=== PATIENT | female | born 1965 | race Caucasian/White ===

== ENCOUNTER 2016-12-04 19:20 | Emergency (ER) | payer OTHER ==
--- NOTE | 2016-12-04 21:02 | DIAGNOSTIC IMAGING REPORT ---
PROCEDURE: CT SINUS/FACIAL BONES W/O CONT CLINICAL INDICATION: SUSPECTED TRAUMA TECHNIQUE: Noncontrast axial CT images through the facial bones. Coronal and sagittal reformations were created. COMPARISON: None. FINDINGS: Very minor subcutaneous stranding in the region of the right cheek. No underlying fracture. The mandible is intact. Temporomandibular joints are normally located. Moderately severe flattening of the mandibular condyles with mild joint space loss of the temporomandibular joints. Small mucous retention cyst at the base of the right maxillary sinus. Maxillary sinuses are intact with normal aeration. Pterygoid plates, sphenoid, temporal bones, zygomatic arches, bony orbits, nasal bones and osseous nasal septum are intact. Frontal bones and frontal sinuses are intact. Mastoid cavities, middle ear cavities, and sphenoid sinuses are normally aerated. Globes and orbital soft tissues are normal. The visible base of the brain is normal. The airway is patent. The visible glandular structures of the neck are normal. The visible portions of the cervical spine are intact. Mild degeneration at the atlantodental interval. IMPRESSION: 1. No fractures. 2. Mild soft tissue contusion over the right cheek. 3. Moderate degenerative change in the temporomandibular joints. 4. Findings called to the emergency room. All CT scans at this facility use dose modulation, iterative reconstruction, and/or weight-based dosing when appropriate to reduce radiation dose to as low as reasonably achievable.
--- NOTE | 2016-12-04 21:07 | DIAGNOSTIC IMAGING REPORT ---
PROCEDURE: CT CERVICAL SPINE W/O CONTRAST INDICATION: POSSIBLE TRAUMA TECHNIQUE: Axial CT images were obtained through the cervical spine. Coronal and sagittal reformations were created. No comparison. COMPARISON: None. FINDINGS: The craniocervical junction is intact. The cervical vertebral bodies are normal in height without evidence of fracture. Kyphosis and rightward tilt of the cervical spine without acute subluxation. The disk spacing is normal. The central canal is patent. No spinal stenosis or neural foraminal narrowing. Mild degenerative spurring and joint space loss at the atlantodental interval. No prevertebral or paravertebral soft-tissue swelling or mass. Patent airway and normal lung apices. IMPRESSION: 1. Intact cervical spine. 2. Kyphosis and rightward tilt are likely postural. 3. Minor atlantodental interval degeneration. 4. Findings called to the emergency room. All CT scans at this facility use dose modulation, iterative reconstruction, and/or weight-based dosing when appropriate to reduce radiation dose to as low as reasonably achievable.
--- NOTE | 2016-12-04 21:15 | DIAGNOSTIC IMAGING REPORT ---
PROCEDURE: ABDOMEN/PELVIS WITH CONTRAST CLINICAL INDICATION: TRAUMA POSSIBLE TECHNIQUE: 125 ml of Isovue 300 were injected intravenously and axial images were obtained of the abdomen and pelvis with sagittal and coronal reformations. COMPARISON: None. FINDINGS: ABDOMEN: Minor bibasilar atelectasis. Normal sized heart. No hiatal hernia. The liver, gallbladder, adrenal glands, kidneys, pancreas and spleen are normal. The abdominal aorta is normal in its course and caliber. There are no suspicious calcifications, retroperitoneal adenopathy or masses. The stomach, upper bowel loops, and mesentery are normal. Intact anterior abdominal wall. No free fluid or inflammation. PELVIS: The urinary bladder is quite distended. No evidence of intra or extraperitoneal bladder rupture. The appendix and pelvic small bowel loops are normal. Mild sigmoid diverticulosis. Normal amount of stool in the colon and rectum. The uterus, ovaries, and pelvic vessels are normal. No adenopathy, free fluid, or pelvic mass. Intact osseous structures. IMPRESSION: 1. No CT evidence of intra-abdominal or pelvic trauma. 2. Distended urinary bladder. 3. Findings called to the emergency room. All CT scans at this facility use dose modulation, iterative reconstruction, and/or weight-based dosing when appropriate to reduce radiation dose to as low as reasonably achievable.
--- NOTE | 2016-12-04 21:17 | DIAGNOSTIC IMAGING REPORT ---
PROCEDURE: XR CHEST 1 VIEW INDICATION: POSSIBLE TRAUMA TECHNIQUE: Single view chest. 1938 hours COMPARISON: None FINDINGS: Normal cardiomediastinal contour and central vessels. Mild hazy right infrahilar opacity. Moderately low lung volumes. No pneumothorax or effusion. The visible osseous structures are intact. IMPRESSION: 1. Hazy right infrahilar alveolar opacity in addition to low lung volumes is likely atelectatic change. Consider repeat film on the patient is able. Aspiration pneumonitis cannot be entirely excluded. 2. No radiographic evidence of other chest trauma.
--- NOTE | 2016-12-04 22:05 | DIAGNOSTIC IMAGING REPORT ---
PROCEDURE: CT HEAD WITHOUT CONTRAST INDICATION: POSSIBLE INJURY, found down TECHNIQUE: Axial CT images were acquired through the head. Coronal and sagittal reformations were created. COMPARISON: None. FINDINGS: No intracranial hemorrhage or extraaxial fluid collections. Ventricles are normal in size, shape and position. There is no mass, mass effect or midline shift. The pratt-white matter differentiation is normal. There is no edema. The calvarium is intact. Small mucous retention cyst at the base of the right maxillary sinus. The paranasal sinuses and mastoid air cells are otherwise normally aerated. Mild soft tissue swelling over the right cheek. Extracranial soft tissues are otherwise normal. IMPRESSION: 1. No CT evidence of acute intracranial process. 2. Findings discussed with Dr. Magana at [address] scans at this facility use dose modulation, iterative reconstruction, and/or weight-based dosing when appropriate to reduce radiation dose to as low as reasonably achievable.
--- NOTE | 2016-12-04 22:32 | ED CLINICAL REPORT ---
Clinical Report - Physicians/Mid Levels [facility] [address] [place] [address] 12/04/2016 19:21 Patient: ROSALVA MARINO Arrived- By ambulance. Historian- patient and EMS personnel. HISTORY OF PRESENT ILLNESS Chief Complaint: DECREASED MENTAL STATUS. The patient is described as having decreased responsiveness. This started today and is still present. The patient was found unresponsive and has had alcohol consumption recently. The patient has had difficulty walking. Usually is alert and oriented X3 and usually has normal mobility. Similar symptoms previously: Many times. Recent medical care: Not recently seen/assessed. REVIEW OF SYSTEMS No headache, chest pain, difficulty breathing, abdominal pain or nausea. No diarrhea or vomiting. All systems otherwise negative, except as recorded above. PAST HISTORY ( Depression. Anxiety Reaction. Alcoholism.). Additional Surgeries: no known surgeries. Medications: ALPRAZolam Oral. None. Allergies: No Known Drug Allergy. SOCIAL HISTORY Smoker - current status unknown. Alcohol use. Patient is a longstanding alcoholic. No drug use. ADDITIONAL NOTES The nursing notes have been reviewed with agreement regarding the chief complaint, PMH and patient medications and allergies. PHYSICAL EXAM Vital Signs: 12/04/2016 19:22 BP: 174/101. HR: 97. RR: 15. O2 saturation: 96%. Ramirez-Butler pain scale: 0/10. Have been reviewed. Hypertensive. Heart rate normal. Respiratory rate normal. Oxygen saturation normal. Appearance: Alert. No acute distress. ENT: Dry mucous membranes present. Neck: Normal inspection. CVS: Normal heart rate and rhythm. Heart sounds normal. Respiratory: No respiratory distress. Breath sounds normal. Abdomen: Soft and nontender. No organomegaly. Back: Normal inspection. No CVA tenderness. Skin: Normal skin color. No rash. Extremities: No lower extremity edema. Neuro: Mildly altered mental status. (Intoxicated). Speech normal. LABS, X-RAYS, AND EKG Laboratory Tests: UA-Culture if indicated: (NARCISA: 12/04/2016 21:05) ( MsgRcvd 12/04/2016 21:34) Final results Test Result Flag Units (Reference) URINE COLOR YELLOW URINE APPEARANCE CLEAR URINE GLUCOSE NEGATIVE (NEGATIVE) URINE BILIRUBIN NEGATIVE (NEGATIVE) URINE KETONE NEGATIVE (NEGATIVE) URINE SPECIFIC GRAVITY <= 1.005 L (1.010-1.030) URINE PH 5.5 (5.0-8.0) URINE PROTEIN NEGATIVE (NEGATIVE) URINE UROBILINOGEN 0.2 EU/dL (0.2-1.0) URINE NITRITE NEGATIVE (NEGATIVE) URINE BLOOD NEGATIVE (NEGATIVE) URINE LEUK ESTERASE NEGATIVE (NEGATIVE) URINE RBC NONE SEEN rbc/hpf (0-1) URINE WBC 1-3 wbc/hpf (0-1) URINE EPITHELIAL CELLS 1-3 EPI/hpf (0-5) URINE BACTERIA NONE SEEN (NONE SEEN) URINE COMMENT CULT NOT INDICATED URINE CULTURES ARE SET-UP BASED ON THE FOLLOWING CRITERIA:POSITIVE NITRITEPOSITIVE LEUKOCYTE ESTERASEGREATER THAN 10 WHITE BLOOD CELLSMODERATE (2+) OR GREATER BACTERIA CBC w Diff: (NARCISA: 12/04/2016 19:43) ( [facility] 12/04/2016 20:06) Final results Test Result Flag Units (Reference) WHITE BLOOD COUNT 5.7 K/uL (4.5-11.5) RED BLOOD COUNT 4.44 M/uL (4.00-5.20) HEMOGLOBIN 14.5 gm/dL (12.0-16.0) HEMATOCRIT 43.0 % (36.0-46.0) MEAN CELL VOLUME 97 fL (80-100) MEAN CORPUSCULAR HGB 33 pg (26-34) MEAN CORPUSCULAR HGB CONC 34 g/dL (31-37) RED CELL DISTRIBUTION WIDTH 14.9 H % (11.6-14.8) PLATELET COUNT 300 K/uL (150-400) NEUTROPHIL % 50.2 % (50-75) LYMPH % 42.5 H % (25-40) MONO % 4.6 % (3-14) EOSINOPHIL % 1.5 % (0-4) BASOPHIL % 1.2 % (0-2) PT with INR: (NARCISA: 12/04/2016 19:43) ( [facility]30) Final results Test Result Flag Units (Reference) INR 1.0 (0.8-1.2) Low Intensity Therapy: INR 1.5-2.0 PT range 18.5-23.1Mod.Intensity Therapy: INR 2.0-3.0 PT range 23.1-31.5High Intensity Therapy: INR 2.5-3.5 PT range 27.4-35.5High Intensity Therapy 2: INR 3.0-4.0 PT range 31.5-39.3 APTT 29 SECONDS (24-34) Lactate, Serum: (NARCISA: 12/04/2016 21:45) ( [facility] 12/04/2016 22:13) Final results Test Result Flag Units (Reference) LACTIC ACID 3.8 H mmol/L (0.4-2.0) Urine Drug Screen: (NARCISA: 12/04/2016 21:05) ( [facility] 12/04/2016 21:30) Final results Test Result Flag Units (Reference) AMPHETAMINE/METHAMPHETAMINE NEGATIVE (NEGATIVE) BARBITURATE NEGATIVE (NEGATIVE) BENZODIAZEPINE NEGATIVE (NEGATIVE) CANNABINOID NEGATIVE (NEGATIVE) COCAINE NEGATIVE (NEGATIVE) ECSTASY NEGATIVE (NEGATIVE) METHADONE NEGATIVE (NEGATIVE) OPIATE NEGATIVE (NEGATIVE) The urine drug screen is a qualitative screening test fordrug overdose and abuse. All screen results should beconsidered as presumptive.Drugs screened for are as follows:BenzodiazepinesCocaineAmphetamines/MetamphetaminesTHC (Tetrahydrocannabinol)OpiatesBarbituratesEcstasyMethadonePositive results are unconfirmed. For confirmation, notifythe lab for the specimen to be sent to the reference lab.All confirmations must be performed by a differentmethodology.The ingestion of natural herbal and plant productscontaining Ephedra/Ephedra metabolites can produce in urineone or more substances capable of cross reacting withamphetamine/methamphetamine immunoassays. These testsprovide a preliminary result only. A more specificalternative chemical method must be used to obtain aconfirmed analytical result. Ammonia Level: (NARCISA: 12/04/2016 19:43) ( [facility] 12/04/2016 20:35) Final results Test Result Flag Units (Reference) AMMONIA 14 umol/L (11-32) Salicylate Level: (NARCISA: 12/04/2016 19:43) ( [facility] 12/04/2016 20:35) Final results Test Result Flag Units (Reference) SALICYLATE <2.8 L mg/dL (2.8-20) Lactate, Serum: (NARCISA: 12/04/2016 19:43) ( [facility] 12/04/2016 20:59) Final results Test Result Flag Units (Reference) LACTIC ACID 4.4 H mmol/L (0.4-2.0) CRITICAL RESULTS CALLEDCalled to Ne RICHTER 12/04/162058Were 2 patient identifiers used? YWas the result read back? Y CMP: (NARCISA: 12/04/2016 19:43) ( [facility] 12/04/2016 20:34) Final results Test Result Flag Units (Reference) GLUCOSE 102 mg/dL (70-110) BUN 6 L mg/dL (7-18) CREATININE 0.7 mg/dL (0.6-1.3) Estimated GFR >60 mL/min Estimated GFR- >60 mL/min Note: Persistent reduction over 3 months in eGFR<60 mL/min/1.73 m2 defines CKD. Patients with eGFR values>=60 mL/min/1.73 m2 may also have CKD if evidence ofpersistent proteinuria. Additional information may be foundat www.kidney.org. SODIUM 148 H mmol/L (136-145) POTASSIUM 3.7 mmol/L (3.5-5.1) CHLORIDE 107 mmol/L (98-107) CARBON DIOXIDE 27 mmol/L (21-32) CALCIUM 8.9 mg/dL (8.5-10.1) TOTAL PROTEIN 8.3 H g/dL (6.4-8.2) ALBUMIN 4.5 g/dL (3.3-5.0) BILIRUBIN, TOTAL 0.5 mg/dL (0.0-1.0) ALKALINE PHOSPHATASE 83 U/L (46-116) AST (SGOT) 40 H U/L (15-37) ALT (SGPT) 56 U/L (12-78) LIPASE 116 U/L (73-393) ACETAMINOPHEN < 2 L ug/mL (10-30) ETHYL ALCOHOL 400 H mg/dL (3-10) . PROGRESS AND PROCEDURES Course of Care: 22:31 12/04/16. Lactate down from 4.4 to 3.8 w/ IVF. Pt feeling well and has a safe place to stay tonight with her mother. Disposition: Discharged home in good and improved condition. Condition: good. CLINICAL IMPRESSION 12/04/2016 21:15 BP: 165/85. HR: 89. RR: 20. O2 saturation: 100%. End tidal CO2: 28 mmHg. Hypertensive. Oxygen saturation normal. Uncomplicated alcohol intoxication with alcohol dependence (acute). No alcohol intoxication with delirium. Mild hypernatremia (acute). Essential hypertension. Multiple contusions. (right face and right lower abdomen). No hematoma or skin abrasion. acute lactic acidosis. INSTRUCTIONS (Try to sober up gradually. Contact your local AA. Help is available only if you allow it.). Warnings: GENERAL WARNINGS: Return or contact your physician immediately if your condition worsens or changes unexpectedly, if not improving as expected, or if other problems arise. Specifically return if pain, vomiting, bleeding, breathing difficulty or fever. Your Current Medications: CONTINUE TAKING THE FOLLOWING MEDICATIONS: ALPRAZolam Oral. None*. Follow-up: Return to the emergency department as needed. Follow up with your doctor in three days. Reason for referral: recheck today's concerns. Summary of care provided to patient via paper. Screening today revealed the patient's blood pressure to be in the hypertensive range. The patient should follow up with a primary care provider for blood pressure management. Understanding of the discharge instructions verbalized by patient. (Electronically signed by Bert Roy Dr. 12/04/2016 22:34)
--- NOTE | 2016-12-04 22:32 | ED ORDER SUMMARY ---
..... 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) (trauma) (19:12/04/2016 Ledy Wilhelm) (Ack 19:36 AMcQuoid ER Tech1) (19:40 RCollier R.N.) CT Abd/Pel w Cont (No) (N/A) Urgent (19:29 12/04/2016 Ledy Wilhelm) (Ack 19:36 AMcQuoid ER Tech1) (21:32 EHassan R.N.) CT Head wo Cont Urgent (19:30 12/04/2016 Ledy Wilhelm) (Ack 19:36 AMcQuoid ER Tech1) (21:32 JULIETassan R.N.) CT Cervical Spine wo Cont Urgent (19:12/04/2016 Ledy Wilhelm) (Ack 19:36 AMcQuoid ER Tech1) (21:32 EHassan R.N.) CT Sinus/Facial Bones wo Cont Urgent (19:12/04/2016 Ledy Wilhelm) (Ack 19:36 AMcQuoid ER Tech1) (21:32 EHassan R.N.) CBC w Diff Urgent (19:12/04/2016 Ledy Wilhelm) (Ack 19:36 AMcQuoid ER Tech1) (19:55 AMcQuoid ER Tech1) CMP Urgent (19:12/04/2016 Ledy Wilhelm) (Ack 19:36 AMcQuoid ER Tech1) (19:55 AMcQuoid ER Tech1) UA-Culture if indicated Urgent (19:12/04/2016 Ledy iWlhelm) (Ack 19:36 AMcQuoid ER Tech1) (21:32 JULIETassan R.N.) PT with INR Urgent (19:31 12/04/2016 Ledy Wilhelm) (Ack 19:36 AMcQuoid ER Tech1) (19:55 AMcQuoid ER Tech1) PTT Urgent (19:12/04/2016 Ledy Wilhelm) (Ack 19:36 AMcQuoid ER Tech1) (19:55 AMcQuoid ER Tech1) Lipase Urgent (19:12/04/2016 Ledy Wilhelm) (Ack 19:36 AMcQuoid ER Tech1) (19:55 AMcQuoid ER Tech1) Lactate, Serum Urgent (19:12/04/2016 Ledy Wilhelm) (Ack 19:36 AMcQuoid ER Tech1) (19:55 AMcQuoid ER Tech1) Ethyl Alcohol Urgent (:12/04/2016 Ledy Wilhelm) (Ack 19:36 AMcQuoid ER Tech1) (19:55 AMcQuoid ER Tech1) Salicylate Level Urgent (19:12/04/2016 Ledy Wilhelm) (Ack 19:36 AMcQuoid ER Tech1) (19:55 AMcQuoid ER Tech1) Acetaminophen Level Urgent (19:12/04/2016 Ledy Wilhelm) (Ack 19:36 AMcQuoid ER Tech1) (19:55 AMcQuoid ER Tech1) Urine Drug Screen Urgent (19:12/04/2016 Ledy Wilhelm) (Ack 19:36 AMcQuoid ER Tech1) (21:32 EHassan R.N.) Ammonia Level Urgent (19:12/04/2016 Ledy Wilhelm) (Ack 19:36 AMcQuoid ER Tech1) (19:55 AMcQuoid ER Tech1) Pulse oximeter (19:12/04/2016 Ledy Wilhelm) (Ack 19:36 AMcQuoid ER Tech1) (19:40 RCollier R.N.) Lactate, Serum Urgent (21:30 12/04/2016 Ledy Wilhelm) (21:45 ALawrence ER Tech1) MEDICATION ORDERS: IV FLUIDS: IV NS : initial bolus 2L, then none - for X1 (NOW) (19:28 12/04/2016 Ledy Wilhelm) (20:32 HSoule) IV NS : initial bolus 1000 mL (1000 mL/hr), then none - for X1 (NOW) (21:12 12/04/2016 Ledy Wilhelm) (Ack 21:15 HSoule) (21:18 HSoule) ORDER SHEET NOTES: [Electronically signed by Bert Roy Dr. (22:34 12/04/2016)] [Electronically signed by Colleen Hernandez R.N. (:55 12/04/2016)] [Electronically locked/signed by Colleen Hernandez R.N. (22:55 12/04/2016)]
--- NOTE | 2016-12-04 22:32 | ED ORDER SUMMARY ---
..... 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) (19:12/04/2016 Ledy Wilhelm) (Ack 19:36 AMcQuoid ER Tech1) (19:40 RCollier R.N.) CT Abd/Pel w Cont (No) (N/A) Urgent (19:29 12/04/2016 Ledy Wilhelm) (Ack 19:36 AMcQuoid ER Tech1) (21:32 EHassan R.N.) CT Head wo Cont Urgent (19:30 12/04/2016 Ledy Wilhelm) (Ack 19:36 AMcQuoid ER Tech1) (21:32 JULIETassan R.N.) CT Cervical Spine wo Cont Urgent (19:12/04/2016 Ledy Wilhelm) (Ack 19:36 AMcQuoid ER Tech1) (21:32 EHassan R.N.) CT Sinus/Facial Bones wo Cont Urgent (19:12/04/2016 Ledy Wilhelm) (Ack 19:36 AMcQuoid ER Tech1) (21:32 EHassan R.N.) CBC w Diff Urgent (19:12/04/2016 Ledy Wilhelm) (Ack 19:36 AMcQuoid ER Tech1) (19:55 AMcQuoid ER Tech1) CMP Urgent (19:12/04/2016 Ledy Wilhelm) (Ack 19:36 AMcQuoid ER Tech1) (19:55 AMcQuoid ER Tech1) UA-Culture if indicated Urgent (19:12/04/2016 Ledy Wilhelm) (Ack 19:36 AMcQuoid ER Tech1) (21:32 JULIETassan R.N.) PT with INR Urgent (19:31 12/04/2016 Ledy Wilhelm) (Ack 19:36 AMcQuoid ER Tech1) (19:55 AMcQuoid ER Tech1) PTT Urgent (19:12/04/2016 Ledy Wilhelm) (Ack 19:36 AMcQuoid ER Tech1) (19:55 AMcQuoid ER Tech1) Lipase Urgent (19:12/04/2016 Ledy Wilhelm) (Ack 19:36 AMcQuoid ER Tech1) (19:55 AMcQuoid ER Tech1) Lactate, Serum Urgent (19:12/04/2016 Ledy Wilhelm) (Ack 19:36 AMcQuoid ER Tech1) (19:55 AMcQuoid ER Tech1) Ethyl Alcohol Urgent (:12/04/2016 Ledy Wilhelm) (Ack 19:36 AMcQuoid ER Tech1) (19:55 AMcQuoid ER Tech1) Salicylate Level Urgent (19:12/04/2016 Ledy Wilhelm) (Ack 19:36 AMcQuoid ER Tech1) (19:55 AMcQuoid ER Tech1) Acetaminophen Level Urgent (19:12/04/2016 Ledy Wilhelm) (Ack 19:36 AMcQuoid ER Tech1) (19:55 AMcQuoid ER Tech1) Urine Drug Screen Urgent (19:12/04/2016 Ledy Wilhelm) (Ack 19:36 AMcQuoid ER Tech1) (21:32 EHassan R.N.) Ammonia Level Urgent (19:12/04/2016 Ledy Wilhelm) (Ack 19:36 AMcQuoid ER Tech1) (19:55 AMcQuoid ER Tech1) Pulse oximeter (19:12/04/2016 Ledy Wilhelm) (Ack 19:36 AMcQuoid ER Tech1) (19:40 RCollier R.N.) Lactate, Serum Urgent (21:30 12/04/2016 Ledy Wilhelm) (21:45 ALawrence ER Tech1) MEDICATION ORDERS: IV FLUIDS: IV NS : initial bolus 2L, then none - for X1 (NOW) (19:28 12/04/2016 Ledy Wilhelm) (20:32 HSoule) IV NS : initial bolus 1000 mL (1000 mL/hr), then none - for X1 (NOW) (21:12 12/04/2016 Ledy Wilhelm) (Ack 21:15 HSoule) (21:18 HSoule) ORDER SHEET NOTES: [Electronically signed by Bert Roy Dr. (22:34 12/04/2016)] [Electronically signed by Colleen Hernandez R.N. (:55 12/04/2016)] [Electronically locked/signed by Colleen Hernandez R.N. (22:55 12/04/2016)]
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
--- NOTE | 2016-12-04 22:55 | ED MED RECONCILIATION SUMMARY ---
Patient: ROSALVA MARINO Medication Reconciliation Report [facility] VisitID: [id number] [address] [place] [address] 51y, F Registration Date/Time: 12/04/2016 Weight: 58.9 kg Height/Length: 67 in. BMI: 20.4 ALLERGIES: No Known Drug Allergy The patient's Home Medications are listed below: CONTINUE TAKING THE FOLLOWING MEDICATIONS: ALPRAZolam Oral The source(s) of the original Home Medication information: patient The following Medications were given to the patient in the Emergency Department: IV NS IV Fluids bolus 0, then 1000 mL/hr, administered: 12/04/2016 8:17:00 PM IV NS IV Fluids bolus 0, then 1000 mL/hr, administered: 12/04/2016 8:17:00 PM IV NS IV Fluids bolus 0, then 1000 mL/hr, administered: 12/04/2016 9:18:00 PM The following Medications were prescribed to the patient: None.
--- NOTE | 2016-12-04 22:55 | ED MED RECONCILIATION SUMMARY ---
Patient: ROSALVA MARINO Medication Reconciliation Report [facility] VisitID: [id number] [address] [place] [address] 51y, F Registration Date/Time: 12/04/2016 Weight: 58.9 kg Height/Length: 67 in. BMI: 20.4 ALLERGIES: No Known Drug Allergy The patient's Home Medications are listed below: CONTINUE TAKING THE FOLLOWING MEDICATIONS: ALPRAZolam Oral The source(s) of the original Home Medication information: patient The following Medications were given to the patient in the Emergency Department: IV NS IV Fluids bolus 0, then 1000 mL/hr, administered: 12/04/2016 8:17:00 PM IV NS IV Fluids bolus 0, then 1000 mL/hr, administered: 12/04/2016 8:17:00 PM IV NS IV Fluids bolus 0, then 1000 mL/hr, administered: 12/04/2016 9:18:00 PM The following Medications were prescribed to the patient: None.
--- NOTE | 2016-12-04 22:55 | ED MAR SUMMARY ---
..... Medication Administration Record [facility] [address], [place] [address] Patient: ROSALVA MARINO Visit ID: [id number] 51y, F Weight: 58.9 kg Height/Length: 67 in BMI: 20.4 ALLERGIES: No Known Drug Allergy Start 20:12/04/2016 Helene Booth,, Stop 21:12/04/2016 Helene Booth, Medication Administered: IV NS (SALINE), Dose: IV Fluids over 1 hour(s), Rate: 1000 mL/hr, Dispensed: 1000 mL bag, Site: #1 left AC. Medication Ordered: IV NS : initial bolus 2L, then none - for X1 (NOW). Start 20:12/04/2016 Helene Booth,, Stop 21:12/04/2016 Helene Booth, Medication Administered: IV NS (SALINE), Dose: IV Fluids over 1 hour(s), Rate: 1000 mL/hr, Dispensed: 1000 mL bag, Site: #1 left AC. Medication Ordered: IV NS : initial bolus 2L, then none - for X1 (NOW). Start 21:12/04/2016 Helene Booth,, Stop 22:23 12/04/2016 Colleen Hernandez RTyra. Medication Administered: IV NS (SALINE), Dose: IV Fluids over 1 hour(s), Rate: 1000 mL/hr, Dispensed: 1000 mL bag, Site: #1 left AC. Medication Ordered: IV NS : initial bolus 1000 mL (1000 mL/hr), then none - for X1 (NOW).
--- NOTE | 2016-12-04 22:55 | ED DISCHARGE INSTRUCTIONS ---
Patient: ROSALVA MARINO General Instructions [facility] VisitID: [id number] [place] [address] 51y, F Registration Date/Time: 12/04/2016 12/04/2016 21:15 BP: 165/85. HR: 89. RR: 20. O2 saturation: 100%. End tidal CO2: 28 mmHg. Hypertensive. Oxygen saturation normal. Uncomplicated alcohol intoxication with alcohol dependence (acute). No alcohol intoxication with delirium. Mild hypernatremia (acute). Essential hypertension. Multiple contusions. (right face and right lower abdomen). No hematoma or skin abrasion. acute lactic acidosis. INSTRUCTIONS (Try to sober up gradually. Contact your local AA. Help is available only if you allow it.). Warnings: GENERAL WARNINGS: Return or contact your physician immediately if your condition worsens or changes unexpectedly, if not improving as expected, or if other problems arise. Specifically return if pain, vomiting, bleeding, breathing difficulty or fever. Your Current Medications: CONTINUE TAKING THE FOLLOWING MEDICATIONS: ALPRAZolam Oral. None*. Follow-up: Return to the emergency department as needed. Follow up with your doctor in three days. Reason for referral: recheck today's concerns. Summary of care provided to patient via paper. Screening today revealed the patient's blood pressure to be in the hypertensive range. The patient should follow up with a primary care provider for blood pressure management. Understanding of the discharge instructions verbalized by patient. ADDITIONAL INFORMATION Alcohol Intoxication Alcohol intoxication occurs when you drink alcohol faster than your liver can remove it from your system. Alcohol intoxication affects your judgment and coordination. Very high blood alcohol levels can cause coma, very slow breathing and even . If you drink alcohol every day, this may gradually cause permanent damage to your liver, brain, heart, pancreas and other organs. Alcohol use during may cause permanent damage to the growing baby. Home Care: Do not drink any more alcohol. DO NOT DRIVE until all effects of the alcohol have worn off. Get lots of rest over the next few days. Drink plenty of water and other non-alcoholic liquids. Try to eat regular meals. If you have been drinking heavily on a daily basis, you may go through alcohol withdrawl. This is also called the shakes or DTs. The usual symptoms last 3 to 4 days and may include nervousness, shakiness, nausea, sweating or sleeplessness. During this time, it is best that you stay with family or friends who can help and support you. You can also admit yourself to a residential detox program. If your symptoms are severe, contact your doctor for medicines to help. Follow Up: If alcohol is causing a problem in your life, these and other organizations can help you: Alcoholics Anonymous offers support through a self-help fellowship. There are no dues or fees. See the Yellow Pages and call for time and place of meetings. www.aa.org [employer] offers support to families of alcohol users. 518.552.6318 www.al-anon.org National [employer] On Alcoholism And Drug Dependence 402-112-3350 www.ncadd.org There are also inpatient or residential alcohol detox programs. Check the Internet or phonebook Yellow Pages under Drug Abuse & Treatment Centers. Get Prompt Medical Attention if any of the following occur: there) High Blood Pressure -- To Be Confirmed [No Tx] Your blood pressure was higher today than normal. Sometimes anxiety or pain can cause a temporary rise in blood pressure that later returns to normal. If your blood pressure is high on one measurement, this does not mean that you have hypertension (a chronic illness). However, you must have your blood pressure measured again within the next few days to find out if its still high. A normal blood pressure is 120/80 or less. The first (top) number is the "systolic" pressure. The second (bottom) number is the "diastolic" pressure. Hypertension exists when either the top number is 140 or higher, OR the bottom number is 90 or higher on repeated measurements. Blood pressure in the range of 120-140 (systolic) or 80-89 (diastolic) is considered "pre-hypertension". This means your are at risk for getting hypertension. You should have regular blood pressure checks to be sure your blood pressure is not rising. Home Care: Measure your blood pressure on 3 different days and write down the results. This can be done at your doctor's office or this facility. Some pharmacies and grocery stores offer automated blood pressure machines for your use. Follow Up: If your blood pressure is "high" (over 120/80) on 2 out of 3 days, you will need to follow up with your doctor for further evaluation and treatment. DO NOT PUT THIS OFF! Untreated high blood pressure increases the risk for heart attack, also known as acute myocardial infarction, or AMI, and stroke. It is a treatable condition. Get Prompt Medical Attention if any of the following occur: Chest pain or shortness of breath Severe headache Throbbing or rushing sound in the ears Nosebleed Sudden severe abdominal pain Extreme drowsiness, confusion or fainting Dizziness or vertigo (dizziness with spinning sensation) Weakness of an arm or leg or one side of the face Difficulty with speech or vision Contusion,Soft Tissue You have a CONTUSION, which is a bruise with swelling and some bleeding under the skin. There are no broken bones. This injury takes a few days to a few weeks to heal. Home Care: 1) Keep the injured part elevated to reduce pain and swelling. This is especially important during the first 48 hours. 2) Make an ice pack (ice cubes in a plastic bag, wrapped in a towel) and apply for 20 minutes every 1-2 hours the first day. Continue this 3-4 times a day until the pain and swelling goes away. 3) You may use acetaminophen (Tylenol) or ibuprofen (Motrin, Advil) to control pain, unless another pain medicine was prescribed. [ NOTE : If you have chronic liver or kidney disease or ever had a stomach ulcer or GI bleeding, talk with your doctor before using these medicines.] Follow Up with your doctor or this facility if you are not improving within the next THREE days. [NOTE: If X-rays were taken, they will be reviewed by a radiologist. You will be notified of any new findings that may affect your care.] Get Prompt Medical Attention if any of the following occur: -- Pain or swelling increases -- Injured arm or leg becomes cold, blue, numb or tingly -- Redness, warmth or drainage from the skin You have been given the following additional information: Alcohol Intoxication Hypertension, To Be Confirmed Contusion, Soft Tissue (Electronically signed by Bert Roy Dr. 12/04/2016 22:34)
--- NOTE | 2016-12-04 22:55 | ED MAR SUMMARY ---
..... Medication Administration Record [facility] [address], [place] [address] Patient: ROSALVA MARINO Visit ID: [id number] 51y, F Weight: 58.9 kg Height/Length: 67 in BMI: 20.4 ALLERGIES: No Known Drug Allergy Start 20:12/04/2016 Helene Booth,, Stop 21:12/04/2016 Helene Booth, Medication Administered: IV NS (SALINE), Dose: IV Fluids over 1 hour(s), Rate: 1000 mL/hr, Dispensed: 1000 mL bag, Site: #1 left AC. Medication Ordered: IV NS : initial bolus 2L, then none - for X1 (NOW). Start 20:12/04/2016 Helene Booth,, Stop 21:12/04/2016 Helene Booth, Medication Administered: IV NS (SALINE), Dose: IV Fluids over 1 hour(s), Rate: 1000 mL/hr, Dispensed: 1000 mL bag, Site: #1 left AC. Medication Ordered: IV NS : initial bolus 2L, then none - for X1 (NOW). Start 21:12/04/2016 Helene Booth,, Stop 22:23 12/04/2016 Colleen Hernandez RTyra. Medication Administered: IV NS (SALINE), Dose: IV Fluids over 1 hour(s), Rate: 1000 mL/hr, Dispensed: 1000 mL bag, Site: #1 left AC. Medication Ordered: IV NS : initial bolus 1000 mL (1000 mL/hr), then none - for X1 (NOW).
== END 2016-12-04 22:45 ==
LOC: ED SRH 19:20
DX: S00.83XA Contusion of other part of head, initial encounter (principal); S30.1XXA Contusion of abdominal wall, initial encounter; I10 Essential (primary) hypertension; F10.129 Alcohol abuse with intoxication, unspecified; E87.2 Acidosis; E87.0 Hyperosmolality and hypernatremia; X58.XXXA Exposure to other specified factors, initial encounter; Y93.9 Activity, unspecified; Y92.410 Unspecified street and highway as the place of occurrence of the external cause
CPT/HCPCS: 90004; 90100; 91588; 92010; 92031; 92235; 92760; 92761; 92762; 92763; 92764; 92765; 92766; 92767; 92780; 94001; 94060; 95059; 97000

== ENCOUNTER 2016-12-15 14:11 | Inpatient (IN) | payer OTHER ==
[~2016-12-15] VITALS: Ht 170.2 cm; Wt 67.4 kg
--- NOTE | 2016-12-15 16:42 | ED ORDER SUMMARY ---
..... Patient: ROSALVA BROOKS OrderSheet [facility] VisitID: [id number] [place] [address] 51y, F Registration Date/Time: 12/15/2016 ORDER SHEET Weight: 61.2 kg (stated) Allergies: No Known Drug Allergy GENERAL ORDERS: CBC w Diff Urgent (14:14 12/15/2016 Hina CARTER) (Ack 14:17 Teresa) (14:30 MWinterer R.N.) CMP Urgent (14:14 12/15/2016 Hina CARTER) (Ack 14:17 Teresa) (14:30 MWinterer R.N.) UA-Culture if indicated Urgent (14:14 12/15/2016 Hina CARTER) (Ack 14:17 Teresa) (14:54 MWinterer R.N.) Amylase Urgent (14:14 12/15/2016 Hina CARTER) (Ack 14:17 Teresa) (14:30 MWinterer R.N.) Lipase Urgent (14:14 12/15/2016 Hina CARTER) (Ack 14:17 Teresa) (14:30 MWinterer R.N.) Urine Urgent (14:14 12/15/2016 Hina CARTER) (Ack 14:17 Teresa) (14:54 MWinterer R.N.) Urine Drug Screen Urgent (14:14 12/15/2016 Hina CARTER) (Ack 14:17 Teresa) (14:54 MWinterer R.N.) Ethyl Alcohol Urgent (14:14 12/15/2016 Hina CARTER) (Ack 14:17 Teresa) (14:30 MWinterer R.N.) US Abdomen Limited (No) Urgent (15:24 12/15/2016 Hina CARTER) (Ack 15:27 Teresa) (16:44 SRoberts R.N.) MEDICATION ORDERS: IV FLUIDS: IV NS : initial bolus 500 mL (1000 mL/hr), then 125 mL/hr for 4h (NOW); Urgent (14:14 12/15/2016 Hina CARTER) (Ack 14:18 MWinterer R.N.) (14:29 MWinterer R.N.) Protonix IVP 40mg 40 mg (Mix in NS 10ml over 2min) (14:14 12/15/2016 Hina CARTER) (Ack 14:18 MWinterer R.N.) (14:30 MWinterer R.N.) Ativan IV 1 mg (HIGH ALERT MEDICATION, NOW) (14:20 12/15/2016 Hina CARTER) (14:30 MWinterer R.N.) ORDER SHEET NOTES: [Electronically signed by Yudelka Liang R.N. (18:22 12/15/2016)] [Electronically signed by Olvin Cowan MD (21:02 12/15/2016)] [Electronically locked/signed by Yudelka Liang R.N. (18:22 12/15/2016)]
--- NOTE | 2016-12-15 16:42 | ED CLINICAL REPORT ---
Clinical Report - Physicians/Mid Levels [facility] [address] [place] [address] 12/15/2016 14:10 Patient: ROSALVA BROOKS Time Seen: 14:13. Arrived- By ambulance. Historian- patient and EMS personnel. History limited by altered mental status and confusion. Physical Exam limited by altered mental status and confusion. HISTORY OF PRESENT ILLNESS Chief Complaint: ABDOMINAL PAIN. It is described as "pain" and it is described as located in the right upper quadrant and radiating to the neck and chest. This started today and is still present. It was abrupt in onset and has been waxing/waning. (Late in her visit her uncle arrived. He said that she last drank alcohol about 3 days ago. He says that for the past couple of days she has been confused and hallucinating.). REVIEW OF SYSTEMS No chills, fever, sweats, calf pain or chest pain. No cough, difficulty breathing, pedal edema, palpitations or black stools. No bloody stools, constipation, diarrhea, nausea or urinary problems. PAST HISTORY Medications: None. Allergies: No Known Drug Allergy. SOCIAL HISTORY Alcohol use. Last drink was 1 weeks ago. Patient is a longstanding alcoholic. ADDITIONAL NOTES The nursing notes have been reviewed. PHYSICAL EXAM Vital Signs: 12/15/2016 14:09 BP: 170/102. HR: 117. RR: 24. O2 saturation: 96%. Temp: 99.8 F. Pain level now: 8/10. Have been reviewed. Appearance: Alert. She is confused. Eyes: Pupils equal, round and reactive to light. ENT: Pharynx normal. Neck: Normal inspection. Neck supple. CVS: Normal heart rate and rhythm. Heart sounds normal. Respiratory: No respiratory distress. Breath sounds normal. Abdomen: Soft and nontender. Bowel sounds normal. No organomegaly. No mass. Back: Normal inspection. Extremities: Extremities exhibit normal ROM. No lower extremity edema. Neuro: Altered mental status: confused. Psych: Appears to have auditory and visual hallucinations. Denies suicidal thoughts. LABS, X-RAYS, AND EKG Abdominal Sonogram: No acute changes. (discussed with the photogrammetric tech). The study was independently viewed by me. Laboratory Tests: UA-Culture if indicated: (NARCISA: 12/15/2016 14:50) ( [employer] [facility] 12/15/2016 15:22) Final results Test Result Flag Units (Reference) URINE COLOR YELLOW URINE APPEARANCE SL CLOUDY URINE GLUCOSE NEGATIVE (NEGATIVE) URINE BILIRUBIN ICTOTEST NEGATIVE (NEGATIVE) URINE KETONE 1+ (NEGATIVE) URINE SPECIFIC GRAVITY >= 1.030 (1.010-1.030) URINE PH 6.0 (5.0-8.0) URINE PROTEIN 2+ (NEGATIVE) URINE UROBILINOGEN 0.2 EU/dL (0.2-1.0) URINE NITRITE NEGATIVE (NEGATIVE) URINE BLOOD NEGATIVE (NEGATIVE) URINE LEUK ESTERASE NEGATIVE (NEGATIVE) URINE RBC NONE SEEN rbc/hpf (0-1) URINE WBC 3-5 wbc/hpf (0-1) URINE EPITHELIAL CELLS >15 EPI/hpf (0-5) URINE BACTERIA FEW (1+) (NONE SEEN) URINE COMMENT CULT NOT INDICATED 40-50 Hyaline Casts/l.p.f.2+ AmorphousURINE CULTURES ARE SET-UP BASED ON THE FOLLOWING CRITERIA:POSITIVE NITRITEPOSITIVE LEUKOCYTE ESTERASEGREATER THAN 10 WHITE BLOOD CELLSMODERATE (2+) OR GREATER BACTERIA Urine: (NARCISA: 12/15/2016 14:50) ( [facility] [facility] 12/15/2016 15:10) Final results Test Result Flag Units (Reference) URINE NEGATIVE CBC w Diff: (NARCISA: 12/15/2016 14:15) ( [employer] [facility] 12/15/2016 14:30) Final results Test Result Flag Units (Reference) WHITE BLOOD COUNT 3.5 L K/uL (4.5-11.5) RED BLOOD COUNT 4.60 M/uL (4.00-5.20) HEMOGLOBIN 14.8 gm/dL (12.0-16.0) HEMATOCRIT 43.4 % (36.0-46.0) MEAN CELL VOLUME 94 fL (80-100) MEAN CORPUSCULAR HGB 32 pg (26-34) MEAN CORPUSCULAR HGB CONC 34 g/dL (31-37) RED CELL DISTRIBUTION WIDTH 13.8 % (11.6-14.8) PLATELET COUNT 109 L K/uL (150-400) NEUTROPHIL % 74.5 % (50-75) LYMPH % 12.2 L % (25-40) MONO % 12.8 % (3-14) EOSINOPHIL % 0.1 % (0-4) BASOPHIL % 0.4 % (0-2) Urine Drug Screen: (NARCISA: 12/15/2016 14:50) ( [facility] 12/15/2016 15:29) Final results Test Result Flag Units (Reference) AMPHETAMINE/METHAMPHETAMINE NEGATIVE (NEGATIVE) BARBITURATE NEGATIVE (NEGATIVE) BENZODIAZEPINE POSITIVE H (NEGATIVE) CANNABINOID NEGATIVE (NEGATIVE) COCAINE NEGATIVE (NEGATIVE) ECSTASY NEGATIVE (NEGATIVE) METHADONE NEGATIVE (NEGATIVE) OPIATE POSITIVE H (NEGATIVE) The urine drug screen is a qualitative screening test fordrug overdose and abuse. All screen results should beconsidered as presumptive.Drugs screened for are as follows:BenzodiazepinesCocaineAmphetamines/MetamphetaminesTHC (Tetrahydrocannabinol)OpiatesBarbituratesEcstasyMethadonePositive results are unconfirmed. For confirmation, notifythe lab for the specimen to be sent to the reference lab.All confirmations must be performed by a differentmethodology.The ingestion of natural herbal and plant productscontaining Ephedra/Ephedra metabolites can produce in urineone or more substances capable of cross reacting withamphetamine/methamphetamine immunoassays. These testsprovide a preliminary result only. A more specificalternative chemical method must be used to obtain aconfirmed analytical result. CMP: (NARCISA: 12/15/2016 14:15) ( [facility] 12/15/2016 14:52) Final results Test Result Flag Units (Reference) GLUCOSE 124 H mg/dL (70-110) BUN 9 mg/dL (7-18) CREATININE 1.1 mg/dL (0.6-1.3) Estimated GFR 56.11 mL/min Estimated GFR- >60 mL/min Note: Persistent reduction over 3 months in eGFR<60 mL/min/1.73 m2 defines CKD. Patients with eGFR values>=60 mL/min/1.73 m2 may also have CKD if evidence ofpersistent proteinuria. Additional information may be foundat [email or web address]. SODIUM 130 L mmol/L (136-145) POTASSIUM 3.5 mmol/L (3.5-5.1) CHLORIDE 90 L mmol/L (98-107) CARBON DIOXIDE 23 mmol/L (21-32) CALCIUM 9.3 mg/dL (8.5-10.1) TOTAL PROTEIN 8.9 H g/dL (6.4-8.2) ALBUMIN 4.8 g/dL (3.3-5.0) BILIRUBIN, TOTAL 0.8 mg/dL (0.0-1.0) ALKALINE PHOSPHATASE 92 U/L (46-116) AST (SGOT) 353 H U/L (15-37) ALT (SGPT) 291 H U/L (12-78) LIPASE 68 L U/L (73-393) AMYLASE 39 U/L (25-115) ETHYL ALCOHOL < 3.0 L mg/dL (3-10) . PROGRESS AND PROCEDURES Course of Care: Patient is stable. Discussed case with hospitalist, (Gabriel - he saw the patient in the ER). Reviewed test results and need for additional work-up. Agreed upon treatment plan, need for patient follow-up and decision to admit. Patient/family counseled. Old medical records reviewed. Disposition: Admitted. Observation. CLINICAL IMPRESSION Alcohol withdrawal with confusion, delirium and hallucinations. (Electronically signed by Olvin Cowan MD 12/15/2016 21:02)
--- NOTE | 2016-12-15 16:42 | ED ORDER SUMMARY ---
..... Patient: ROSALVA BROOKS OrderSheet [facility] VisitID: [id number] [place] [address] 51y, F Registration Date/Time: 12/15/2016 ORDER SHEET Weight: 61.2 kg (stated) Allergies: No Known Drug Allergy GENERAL ORDERS: CBC w Diff Urgent (14:14 12/15/2016 Hina CARTER) (Ack 14:17 Teresa) (14:30 MWinterer R.N.) CMP Urgent (14:14 12/15/2016 Hina CARTER) (Ack 14:17 Teresa) (14:30 MWinterer R.N.) UA-Culture if indicated Urgent (14:14 12/15/2016 Hina CARTER) (Ack 14:17 Teresa) (14:54 MWinterer R.N.) Amylase Urgent (14:14 12/15/2016 Hina CARTER) (Ack 14:17 Teresa) (14:30 MWinterer R.N.) Lipase Urgent (14:14 12/15/2016 Hina CARTER) (Ack 14:17 Teresa) (14:30 MWinterer R.N.) Urine Urgent (14:14 12/15/2016 Hina CARTER) (Ack 14:17 Teresa) (14:54 MWinterer R.N.) Urine Drug Screen Urgent (14:14 12/15/2016 Hina CARTER) (Ack 14:17 Teresa) (14:54 MWinterer R.N.) Ethyl Alcohol Urgent (14:14 12/15/2016 Hina CARTER) (Ack 14:17 Teresa) (14:30 MWinterer R.N.) US Abdomen Limited (No) Urgent (15:24 12/15/2016 Hina CARTER) (Ack 15:27 Teresa) (16:44 SRoberts R.N.) MEDICATION ORDERS: IV FLUIDS: IV NS : initial bolus 500 mL (1000 mL/hr), then 125 mL/hr for 4h (NOW); Urgent (14:14 12/15/2016 Hina CARTER) (Ack 14:18 MWinterer R.N.) (14:29 MWinterer R.N.) Protonix IVP 40mg 40 mg (Mix in NS 10ml over 2min) (14:14 12/15/2016 Hina CARTER) (Ack 14:18 MWinterer R.N.) (14:30 MWinterer R.N.) Ativan IV 1 mg (HIGH ALERT MEDICATION, NOW) (14:20 12/15/2016 Hina CARTER) (14:30 MWinterer R.N.) ORDER SHEET NOTES: [Electronically signed by Yudelka Liang R.N. (18:22 12/15/2016)] [Electronically signed by Olvin Cowan MD (21:02 12/15/2016)] [Electronically locked/signed by Yudelka Liang R.N. (18:22 12/15/2016)]
--- NOTE | 2016-12-15 16:42 | ED NURSING NOTES ---
Clinical Report - Nurses [facility] [address] [place] [address] 12/15/2016 14:10 Patient: ROSALVA BROOKS TRIAGE Acuity: LEVEL 3. Chief Complaint: ABDOMINAL PAIN. Alert. No acute distress. SEPSIS SCREEN: Sepsis Screen. Negative (no infection suspected/documented). --14:14 Yudelka Liang R.N. 14:09 12/15/16. BP: 170/102. HR: 117. RR: 24. O2 saturation: 96% on room air. Temp: 99.8 F (oral). Pain level now: 05/01. --14:14 Yudelka Liang R.N. Weight: 61.2 kg stated. Height/Length: 67 inches Per Patient. BMI: 21.2. --14:12 Yudelka Liang R.N. Medications None. --14:11 Yudelka Liang R.N. Medication/allergy information source: the patient. --14:14 Yudelka Liang R.N. Allergies No Known Drug Allergy. --14:11 Yudelka Liang R.N. History Arrived by EMS. Historian: patient. Unaccompanied. Primary physician (Miah). This started today. Relates location as in the right abdomen. Treatment KNOCKER OUT: None. PAST MEDICAL HX: The patient is post-menopausal. SOCIAL HX: Never smoker. Alcohol use. Patient is a longstanding alcoholic. (pt reports last drink 1 week ago). History of drug use. (pt denies drug use). FALL RISK ASSESSMENT: Fall risk assessment completed. No fall risk identified. NUTRITIONAL RISK ASSESSMENT: The nutritional risk assessment revealed no deficiencies. FUNCTIONAL ASSESSMENT: Functional assessment: no impairments noted. LEARNING NEEDS ASSESSMENT: The learning needs assessment revealed no barriers. SKIN INTEGRITY ASSESSMENT: Skin integrity risk assessment completed. No skin integrity risk identified. --14:14 Yudelka Liang R.N. Assessment GENERAL / NEURO / PSYCH: Appears in no acute distress. Appears anxious. She has poor eye contact and appears restless and agitated. RESPIRATORY: Respirations not labored. CVS: Capillary refill less than 2 seconds. SKIN: Mucous membranes are pink. Skin is warm and dry. --14:14 Yudelka Liang R.N. Interventions ID band on patient. To treatment room. --14:14 Yudelka Liang R.N. PHYSICAL ASSESSMENT SKIN: ( pt assisted by 2 RN's up to bsc, pts urine sent to lab, pts Bilateral LE/UE with scattered bruising in various stages of healing, pt reports "It's from my horse accidents"). --14:55 Ida Welch R.N. NURSING PROGRESS NOTES 14:14 12/15/2016 Site #1 started via IV in the right wrist with an 20g angiocath, with aseptic technique and good blood return; one attempt. Blood drawn: rainbow set. Labeled in the presence of the patient and sent to the lab. --14:29 Yudelka Liang R.N. 14:16 12/15/16. Patient gowned. Head of bed elevated. Reassurance given. Two patient identifiers checked. Call light placed in reach. Side rails up x 2. Bed placed in lowest position. Brakes of bed on. Patient ready for evaluation- chart flagged and ED physician and PA notified. --14:16 Yudelka Liang R.N. 14:12/15/2016 Started bag #1 1000 mL IV Fluids IV NS (Saline); at 1000 mL/hr over 1 hour(s) via site #1. Allergies verified and confirmed 5 rights. IV patency established. IV site checked: no pain, redness, or swelling. IV flushed thoroughly pre- and post-medication administration. --14:29 Yudelka Liang R.N. 14:30 12/15/2016 PROTONIX (Pantoprazole Sodium) IVP 40 mg given over 4 minute(s) via site #1. Allergies verified and confirmed 5 rights. IV patency established. IV site checked: no pain, redness, or swelling. IV flushed thoroughly pre- and post-medication administration. IVP given by RN. --14:30 Yudelka Liang R.N. 14:30 12/15/2016 Ativan (LORazepam) IVP 1 mg given over 1 minute(s) via site #1. Allergies verified, confirmed 5 rights and sedative warning given to the patient. IV patency established. IV site checked: no pain, redness, or swelling. IV flushed thoroughly pre- and post-medication administration. IVP given by RN. --14:30 Yudelka Liang R.N. 14:33 12/15/16. BP: 172/94. HR: 119. --14:37 Ida Welch R.N. Two patient identifiers checked. Call light placed in reach. Side rails up x 2. Bed placed in lowest position. Brakes of bed on. ( pt continuously sticking her personal towel down her throat gagging herself, pt doesn't redirect despite multiple requests. pt has rambling speach, while pt is oriented to n/d/t pt states she is talking with her dad through a box and requests the hospital phone number so she can give it to him. pt is fidgeting , c/o "I need my bursa drained, who is going to drain my bursa"). --14:37 Ida Welch R.N. Reassessment after medication administered (minimal change after ativan at this time). ( pt cont to roll up her towel and push it to the back of her throat, pt will cough and attempt to spit on to her blanket, clean blankets have been changed out to maintain comfort and cleanliness. pt cont to not redirect. pt is in eye sight of nurses station for her safety. fall risk on band identified upon triage.). --14:47 Ida Welch R.N. 15:09 12/15/2016 Ativan (LORazepam) IVP 1 mg given over 1 minute(s) via site #1. Allergies verified, confirmed 5 rights and sedative warning given to the patient. IV patency established. IV site checked: no pain, redness, or swelling. IV flushed thoroughly pre- and post-medication administration. IVP given by RN (per VO by ED ). --15:09 Yudelka Liang R.N. 14:45 late entry -. Assisted patient to bedside commode and back to bed; tolerated well (x 2 RNs). Checked patient name and birthdate: patient confirmed. Clean catch urine collected with return of yellow-colored cloudy urine; sample sent to lab for urinalysis and drug screen. Specimen labeled in the presence of the patient. --15:12 Yudelka Liang R.N. 15:17 12/15/16. ( Pt continues to stick her fingers, her towel, and tissue into her throat. Pt's towel taken and put into bag.). --15:17 Yudelka Liang R.N. 15:21 12/15/16. BP: 140/77. HR: 109. RR: 18. O2 saturation: 96%. --15:21 Yudelka Liang R.N. 15:42 12/15/16. ( Pt now more calm, and is not putting towel into mouth. Pt informed of wait for US. Pt agreeable with plan of care. Pt informed of need to remain NPO at this time.). --15:42 Yudelka Liang R.N. 15:42 12/15/16. BP: 121/78. HR: 99. RR: 18. O2 saturation: 96% on room air. --15:46 Yudelka Liang R.N. 15:59 12/15/16. ( pt continues to push towel down her throat and gag herself. States she is trying to "soak up the bursitis". Belongings removed to nursing station). --15:59 Denise Hong R.N. 16:04 12/15/16. hydro technician at the patient's bedside. --16:04 Yudelka Liang R.N. ( US at bedside). --16:18 Ida Welch R.N. ( pts uncle at bedside, pt interacting appropriately with family, reports "this is my dads brother"). --16:40 Ida Welch R.N. Call light placed in reach. Side rails up x 2. Bed placed in lowest position. Brakes of bed on. --16:40 Ida Welch R.N. 17:11 12/15/16. BP: 127/81. HR: 93. RR: 18. O2 saturation: 98% on room air. --17:13 Yudelka Liang R.N. 16:40 12/15/2016 IV Fluids IV NS Discontinued: bag #1 infused. Total amount infused: 1000 mL. IV patency established. IV site checked: no pain, redness, or swelling. IV flushed thoroughly. --18:22 Yudelka Liang R.N. 16:42 12/15/2016 Site #1 removed upon discharge. Catheter intact. Bandaid applied (Patient pulled iv out during US. Dressing applied to site and pressure applied.). --16:44 Nelia Cruz R.N. 16:57 12/15/2016 Site #2 started via IV in the left antecubital space with an 20g angiocath, with aseptic technique and good blood return; one attempt. Saline lock flushed with 10 mL saline. --16:57 Yudelka Liang R.N. 17:14 12/15/16. ( Pt given sandwich, milk and crackers.). --17:14 Yudelka Liang R.N. 17:57 12/15/2016 Site #[address] upon admission; patent, no pain and no signs of infection or infiltration. Converted to saline lock and flushed with 10 mL saline; flushes easily. --18:22 Yudelka Liang R.N. DISPOSITION / DISCHARGE Admitted to Acute Care. Transported via stretcher by [employer]. Report was given to a nurse via a phone call. Report included patient's care, treatment, medications, reviewed medication reconcilliation, and condition (including any recent changes or anticipated changes). All questions were answered. Report was acknowledged and care was transferred. (ELMA Olivera). Bed obtained and ready (205). --17:45 Yudelka Liang R.N. Patient's personal items include: shirt and shoes; items were placed in belongings bag and transported with the patient. She did not have glasses, contacts or dentures. She did not have a hearing aid, purse or cell phone or jewelry. --18:01 Yudelka Liang R.N. 18:00 12/15/16. BP: 117/61. HR: 89. RR: 16. O2 saturation: 95% on room air. Temp: 99.5 F (oral). Pain level now: 0/10. --18:01 Yudelka Liang R.N. Departure time: 18:05 Dec 15 2016. --18:20 Yudelka Liang R.N. Locked/Released at 12/15/2016 18:22 by Yudelka Liang R.N.
--- NOTE | 2016-12-15 16:42 | ED CLINICAL REPORT ---
Clinical Report - Physicians/Mid Levels [facility] [address] [place] [address] 12/15/2016 14:10 Patient: ROSALVA BROOKS Time Seen: 14:13. Arrived- By ambulance. Historian- patient and EMS personnel. History limited by altered mental status and confusion. Physical Exam limited by altered mental status and confusion. HISTORY OF PRESENT ILLNESS Chief Complaint: ABDOMINAL PAIN. It is described as "pain" and it is described as located in the right upper quadrant and radiating to the neck and chest. This started today and is still present. It was abrupt in onset and has been waxing/waning. (Late in her visit her uncle arrived. He said that she last drank alcohol about 3 days ago. He says that for the past couple of days she has been confused and hallucinating.). REVIEW OF SYSTEMS No chills, fever, sweats, calf pain or chest pain. No cough, difficulty breathing, pedal edema, palpitations or black stools. No bloody stools, constipation, diarrhea, nausea or urinary problems. PAST HISTORY Medications: None. Allergies: No Known Drug Allergy. SOCIAL HISTORY Alcohol use. Last drink was 1 weeks ago. Patient is a longstanding alcoholic. ADDITIONAL NOTES The nursing notes have been reviewed. PHYSICAL EXAM Vital Signs: 12/15/2016 14:09 BP: 170/102. HR: 117. RR: 24. O2 saturation: 96%. Temp: 99.8 F. Pain level now: 8/10. Have been reviewed. Appearance: Alert. She is confused. Eyes: Pupils equal, round and reactive to light. ENT: Pharynx normal. Neck: Normal inspection. Neck supple. CVS: Normal heart rate and rhythm. Heart sounds normal. Respiratory: No respiratory distress. Breath sounds normal. Abdomen: Soft and nontender. Bowel sounds normal. No organomegaly. No mass. Back: Normal inspection. Extremities: Extremities exhibit normal ROM. No lower extremity edema. Neuro: Altered mental status: confused. Psych: Appears to have auditory and visual hallucinations. Denies suicidal thoughts. LABS, X-RAYS, AND EKG Abdominal Sonogram: No acute changes. (discussed with the technical sales associate). The study was independently viewed by me. Laboratory Tests: UA-Culture if indicated: (NARCISA: 12/15/2016 14:50) ( [facility] 12/15/2016 15:22) Final results Test Result Flag Units (Reference) URINE COLOR YELLOW URINE APPEARANCE SL CLOUDY URINE GLUCOSE NEGATIVE (NEGATIVE) URINE BILIRUBIN ICTOTEST NEGATIVE (NEGATIVE) URINE KETONE 1+ (NEGATIVE) URINE SPECIFIC GRAVITY >= 1.030 (1.010-1.030) URINE PH 6.0 (5.0-8.0) URINE PROTEIN 2+ (NEGATIVE) URINE UROBILINOGEN 0.2 EU/dL (0.2-1.0) URINE NITRITE NEGATIVE (NEGATIVE) URINE BLOOD NEGATIVE (NEGATIVE) URINE LEUK ESTERASE NEGATIVE (NEGATIVE) URINE RBC NONE SEEN rbc/hpf (0-1) URINE WBC 3-5 wbc/hpf (0-1) URINE EPITHELIAL CELLS >15 EPI/hpf (0-5) URINE BACTERIA FEW (1+) (NONE SEEN) URINE COMMENT CULT NOT INDICATED 40-50 Hyaline Casts/l.p.f.2+ AmorphousURINE CULTURES ARE SET-UP BASED ON THE FOLLOWING CRITERIA:POSITIVE NITRITEPOSITIVE LEUKOCYTE ESTERASEGREATER THAN 10 WHITE BLOOD CELLSMODERATE (2+) OR GREATER BACTERIA Urine: (NARCISA: 12/15/2016 14:50) ( [facility] 12/15/2016 15:10) Final results Test Result Flag Units (Reference) URINE NEGATIVE CBC w Diff: (NARCISA: 12/15/2016 14:15) ( [facility] 12/15/2016 14:30) Final results Test Result Flag Units (Reference) WHITE BLOOD COUNT 3.5 L K/uL (4.5-11.5) RED BLOOD COUNT 4.60 M/uL (4.00-5.20) HEMOGLOBIN 14.8 gm/dL (12.0-16.0) HEMATOCRIT 43.4 % (36.0-46.0) MEAN CELL VOLUME 94 fL (80-100) MEAN CORPUSCULAR HGB 32 pg (26-34) MEAN CORPUSCULAR HGB CONC 34 g/dL (31-37) RED CELL DISTRIBUTION WIDTH 13.8 % (11.6-14.8) PLATELET COUNT 109 L K/uL (150-400) NEUTROPHIL % 74.5 % (50-75) LYMPH % 12.2 L % (25-40) MONO % 12.8 % (3-14) EOSINOPHIL % 0.1 % (0-4) BASOPHIL % 0.4 % (0-2) Urine Drug Screen: (NARCISA: 12/15/2016 14:50) ( [facility] 12/15/2016 15:29) Final results Test Result Flag Units (Reference) AMPHETAMINE/METHAMPHETAMINE NEGATIVE (NEGATIVE) BARBITURATE NEGATIVE (NEGATIVE) BENZODIAZEPINE POSITIVE H (NEGATIVE) CANNABINOID NEGATIVE (NEGATIVE) COCAINE NEGATIVE (NEGATIVE) ECSTASY NEGATIVE (NEGATIVE) METHADONE NEGATIVE (NEGATIVE) OPIATE POSITIVE H (NEGATIVE) The urine drug screen is a qualitative screening test fordrug overdose and abuse. All screen results should beconsidered as presumptive.Drugs screened for are as follows:BenzodiazepinesCocaineAmphetamines/MetamphetaminesTHC (Tetrahydrocannabinol)OpiatesBarbituratesEcstasyMethadonePositive results are unconfirmed. For confirmation, notifythe lab for the specimen to be sent to the reference lab.All confirmations must be performed by a differentmethodology.The ingestion of natural herbal and plant productscontaining Ephedra/Ephedra metabolites can produce in urineone or more substances capable of cross reacting withamphetamine/methamphetamine immunoassays. These testsprovide a preliminary result only. A more specificalternative chemical method must be used to obtain aconfirmed analytical result. CMP: (NARCISA: 12/15/2016 14:15) ( [facility] 12/15/2016 14:52) Final results Test Result Flag Units (Reference) GLUCOSE 124 H mg/dL (70-110) BUN 9 mg/dL (7-18) CREATININE 1.1 mg/dL (0.6-1.3) Estimated GFR 56.11 mL/min Estimated GFR- >60 mL/min Note: Persistent reduction over 3 months in eGFR<60 mL/min/1.73 m2 defines CKD. Patients with eGFR values>=60 mL/min/1.73 m2 may also have CKD if evidence ofpersistent proteinuria. Additional information may be foundat [email or web address]. SODIUM 130 L mmol/L (136-145) POTASSIUM 3.5 mmol/L (3.5-5.1) CHLORIDE 90 L mmol/L (98-107) CARBON DIOXIDE 23 mmol/L (21-32) CALCIUM 9.3 mg/dL (8.5-10.1) TOTAL PROTEIN 8.9 H g/dL (6.4-8.2) ALBUMIN 4.8 g/dL (3.3-5.0) BILIRUBIN, TOTAL 0.8 mg/dL (0.0-1.0) ALKALINE PHOSPHATASE 92 U/L (46-116) AST (SGOT) 353 H U/L (15-37) ALT (SGPT) 291 H U/L (12-78) LIPASE 68 L U/L (73-393) AMYLASE 39 U/L (25-115) ETHYL ALCOHOL < 3.0 L mg/dL (3-10) . PROGRESS AND PROCEDURES Course of Care: Patient is stable. Discussed case with hospitalist, (Gabriel - he saw the patient in the ER). Reviewed test results and need for additional work-up. Agreed upon treatment plan, need for patient follow-up and decision to admit. Patient/family counseled. Old medical records reviewed. Disposition: Admitted. Observation. CLINICAL IMPRESSION Alcohol withdrawal with confusion, delirium and hallucinations. (Electronically signed by Olvin Cowan MD 12/15/2016 21:02)
[2016-12-15 18:39] VITALS: BP 119/78
--- NOTE | 2016-12-15 20:26 | HISTORY AND PHYSICAL ---
ADMITTED: 12/15/2016 HISTORY OF PRESENT ILLNESS: The patient is a 51-year-old woman who presented to the emergency department brought in by her uncle this afternoon with complaints of abdominal pain. Shortly after they arrived, it became obvious she was quite agitated and hallucinating and her uncle indicated the problem was mostly alcohol withdrawal. The patient says she has been drinking hard cider 3-5 doses per day, which she will use for 3 or 4 days and then stop for several days. She says her last drink was about a week and a half ago. Her uncle states confidentially that she has been drinking a lot of vodka and thinks she was drinking up until a day or two ago. She had become very belligerent with her mother, with whom she is living. She had probably stopped drinking within the last 24-48 hours, he thinks. She denies having any other major medical problems. She has gone through some detox treatments in the past, but has never persisted with a full long-term alcohol abuse treatment program. MEDICAL/SURGICAL HISTORY: Past medical history is remarkable for alcohol abuse, as noted. She also has insomnia and, perhaps, some depression. She denies other major medical problems. She is concerned about hepatitis. Her surgical history is remarkable for childbirth x3. She has had 3 spontaneous vaginal deliveries, all uncomplicated. MEDICATIONS: 1. The patient states she has had clonazepam, she thinks, though she is not exactly sure of the name, at times for depression. She may possibly mean citalopram. She has not been taking this regularly recently. ALLERGIES: 1. NONE. SOCIAL HISTORY: Indicates the patient is and living with her mother and also an uncle who lives on the property as well. She has 3 children, ages 15, 13, and a younger child, I think age 12. The patient states that her mother and her uncle are able to take care of her children, and the children are comfortable with this. 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 She does not smoke. She does not use other drugs. FAMILY HISTORY: Remarkable for a mother who has had problems with diabetes and hypertension. There are other aunts and uncles who have hypertension and diabetes. REVIEW OF SYSTEMS: HEENT: Remarkable for dentures. Respiratory: Okay with no shortness breath, no cough or wheezing. Cardiovascular: Okay with no problems in the past with hypertension, heart problems, or heart murmurs. Gastrointestinal: Okay with no major nausea, vomiting, or diarrhea. She has had no GI bleeding. Genitourinary: Okay with no problems passing urine. Her menstrual period stopped about 2 years ago. Musculoskeletal: Remarkable for some bruises on her lower legs, though she does not have any severe musculoskeletal pain. Neurological: Remarkable for some hallucinations of what she calls "fuzzies" which she sees going by that come and go intermittently over the last day or so. She has been quite restless and has had problems with sleeping. Psychiatric: Remarkable for some difficulties with depression in the past. Skin: Okay with no problems other than the bruises. PHYSICAL EXAMINATION: VITAL SIGNS: Revealed the patient's blood pressure initially to be in the 170/ 120 range with pulse in the 100-120 range when she initially presented to the emergency department. She was given lorazepam 1 mg doses x2. After the second dose, her blood pressure has come down into the 120/70 range with pulse around 90. She is afebrile. Respiratory rate is about 16-20. HEENT: Head is normal. Ear canals and tympanic membranes are normal. Eyes show pupils equal, round, and reactive to light. Nose and throat are clear. NECK: Supple without significant adenopathy. CHEST: Clear. BREASTS: Show no masses. There is no axillary adenopathy. HEART: Reveals normal S1 and S2 with no distinct murmur. ABDOMEN: Nondistended and shows no organomegaly or mass. There is no significant tenderness noted in the area of the liver, and no liver enlargement. PELVIC: Not done. RECTAL: Not done. EXTREMITIES: Show no edema. Skin shows some bruises below the knees, particularly on the left side. Peripheral pulses are normal. NEUROLOGIC: Reveals the patient to be restless but oriented x3. She has generally been trying to be cooperative after the lorazepam was given. LAB/IMAGING: Laboratory studies show urinalysis with a specific gravity greater than 1.030 and is otherwise normal. Urine test is negative. Hemoglobin is 14.8, hematocrit is 43.4, white blood cell count is 3500 with 74% polys, 12% lymphs, and 12% monocytes, platelets are 109,000. Urine drug screen is positive for opiates. Electrolytes show sodium 130, potassium 3.5, chloride 90, CO2 23, glucose 124, creatinine 1.1 , BUN 9. Total bilirubin is 0.9. Alkaline phosphatase is 92, SGOT is 353, and SGPT is 291. ETOH level is less than 3 mg%. Imaging: The patient did have an abdominal ultrasound which was reported to the emergency department doctor as normal with no significant liver abnormalities, gallbladder or pancreas abnormalities. Report is not yet in the dictation system. IMPRESSION: 1. The patient is presenting with alcohol abuse and alcohol withdrawal. She is borderline for having delirium tremens. White blood cell count is low, liver transaminases are elevated, and platelets low, all most likely as a result of alcohol use. She also is relatively dehydrated. She does not have a history of other substance abuse. She seems to be motivated to get through this and attend an alcohol abuse treatment program. PLAN: The patient is admitted and will be treated for alcohol withdrawal and, hopefully, will avoid severe delirium tremens. She will be started on lorazepam p.o. and IV, if necessary. If she deteriorates, the alcohol withdrawal treatment program will be followed. She will be started on atenolol at 25 mg every 12 hours p.o. She will be rehydrated and will start on thiamine and vitamins p.o. An acute hepatitis panel will be checked for hepatitis A, B, and C. clinical services manager will be consulted. Dr. Dooley will be contacted to see if he wishes to follow the patient or if he wishes to have her followed by the Hospitalist Service.
--- NOTE | 2016-12-15 21:02 | ED MED RECONCILIATION SUMMARY ---
Patient: ROSALVA BROOKS Medication Reconciliation Report [facility] VisitID: [id number] [address] [place] [address] 51y, F Registration Date/Time: 12/15/2016 Weight: 61.2 kg Height/Length: 67 in. BMI: 21.2 ALLERGIES: No Known Drug Allergy The patient's Home Medications are listed below: NONE. The source(s) of the original Home Medication information: patient The following Medications were given to the patient in the Emergency Department: IV NS IV Fluids bolus 0, then 1000 mL/hr, administered: 12/15/2016 2:29:00 PM PROTONIX [IVP] IVP 40 mg, administered: 12/15/2016 2:30:00 PM Ativan [IVP] IVP 1 mg, administered: 12/15/2016 2:30:00 PM Ativan [IVP] IVP 1 mg, administered: 12/15/2016 3:09:00 PM The following Medications were prescribed to the patient: None.
--- NOTE | 2016-12-15 21:02 | ED MAR SUMMARY ---
..... Medication Administration Record [facility] [address] [place] [address] Patient: ROSALVA BROOKS Visit ID: [id number] 51y, F Weight: 61.2 kg Height/Length: 67 in BMI: 21.2 ALLERGIES: No Known Drug Allergy Start 14:29 12/15/2016 Yudelka Liang R.N., Stop 16:40 12/15/2016 Yudelka Liang R.N. Medication Administered: IV NS (SALINE), Dose: IV Fluids over 1 hour(s), Rate: 1000 mL/hr, Dispensed: 1000 mL bag, Site: #1 right wrist. Medication Ordered: IV NS : initial bolus 500 mL (1000 mL/hr), then 125 mL/hr for 4h (NOW); Urgent. Given 14:30 12/15/2016 Yudelka Liang R.N. Medication Administered: PROTONIX [IVP] (PANTOPRAZOLE SODIUM), Dose: 40 mg IVP over 4 minute(s), Site: #1 right wrist. Medication Ordered: Protonix IVP 40mg 40 mg (Mix in NS 10ml over 2min). Given 14:30 12/15/2016 Yudelka Liang R.N. Medication Administered: ATIVAN [IVP] (LORAZEPAM), Dose: 1 mg IVP over 1 minute(s), Site: #1 right wrist. Medication Ordered: Ativan IV 1 mg (HIGH ALERT MEDICATION, NOW). Given 15:09 12/15/2016 Yudelka Liang R.N. Medication Administered: ATIVAN [IVP] (LORAZEPAM), Dose: 1 mg IVP over 1 minute(s), Site: #1 right wrist. Medication Ordered: Ativan IV 1 mg (HIGH ALERT MEDICATION, NOW).
--- NOTE | 2016-12-15 21:02 | ED DISCHARGE INSTRUCTIONS ---
Patient: ROSALVA BROOKS General Instructions [facility] VisitID: [id number] [address] [place] [address] 51y, F Registration Date/Time: 12/15/2016 Alcohol withdrawal with confusion, delirium and hallucinations. (Electronically signed by Olvin Cowan MD 12/15/2016 21:02)
--- NOTE | 2016-12-15 21:02 | ED DISCHARGE INSTRUCTIONS ---
Patient: ROSALVA BROOKS General Instructions [facility] VisitID: [id number] [address] [place] [address] 51y, F Registration Date/Time: 12/15/2016 Alcohol withdrawal with confusion, delirium and hallucinations. (Electronically signed by Ovlin Cowan MD 12/15/2016 21:02)
--- NOTE | 2016-12-15 21:02 | ED MED RECONCILIATION SUMMARY ---
Patient: ROSALVA BROOKS Medication Reconciliation Report [facility] VisitID: [id number] [address] [place] [address] 51y, F Registration Date/Time: 12/15/2016 Weight: 61.2 kg Height/Length: 67 in. BMI: 21.2 ALLERGIES: No Known Drug Allergy The patient's Home Medications are listed below: NONE. The source(s) of the original Home Medication information: patient The following Medications were given to the patient in the Emergency Department: IV NS IV Fluids bolus 0, then 1000 mL/hr, administered: 12/15/2016 2:29:00 PM PROTONIX [IVP] IVP 40 mg, administered: 12/15/2016 2:30:00 PM Ativan [IVP] IVP 1 mg, administered: 12/15/2016 2:30:00 PM Ativan [IVP] IVP 1 mg, administered: 12/15/2016 3:09:00 PM The following Medications were prescribed to the patient: None.
--- NOTE | 2016-12-15 21:02 | ED MAR SUMMARY ---
..... Medication Administration Record Located Within [facility] [address] [place] [address] Patient: ROSALVA BROOKS Visit ID: [id number] 51y, F Weight: 61.2 kg Height/Length: 67 in BMI: 21.2 ALLERGIES: No Known Drug Allergy Start 14:29 12/15/2016 Yudelka Liang R.N., Stop 16:40 12/15/2016 Yudelka Liang R.N. Medication Administered: IV NS (SALINE), Dose: IV Fluids over 1 hour(s), Rate: 1000 mL/hr, Dispensed: 1000 mL bag, Site: #1 right wrist. Medication Ordered: IV NS : initial bolus 500 mL (1000 mL/hr), then 125 mL/hr for 4h (NOW); Urgent. Given 14:30 12/15/2016 Yudelka Liang R.N. Medication Administered: PROTONIX [IVP] (PANTOPRAZOLE SODIUM), Dose: 40 mg IVP over 4 minute(s), Site: #1 right wrist. Medication Ordered: Protonix IVP 40mg 40 mg (Mix in NS 10ml over 2min). Given 14:30 12/15/2016 Yudelka Liang R.N. Medication Administered: ATIVAN [IVP] (LORAZEPAM), Dose: 1 mg IVP over 1 minute(s), Site: #1 right wrist. Medication Ordered: Ativan IV 1 mg (HIGH ALERT MEDICATION, NOW). Given 15:09 12/15/2016 Yudelka Liang R.N. Medication Administered: ATIVAN [IVP] (LORAZEPAM), Dose: 1 mg IVP over 1 minute(s), Site: #1 right wrist. Medication Ordered: Ativan IV 1 mg (HIGH ALERT MEDICATION, NOW).
--- NOTE | 2016-12-15 21:03 | DIAGNOSTIC IMAGING REPORT ---
PROCEDURE: US ABDOMEN ULTRASOUND-LIMITED INDICATION: RUQ PAIN TECHNIQUE: Garcia scale and color Doppler sonographic images of the abdomen were obtained. COMPARISON: CT abdomen/pelvis 12/04/2016. FINDINGS: Normal gallbladder without gallstones. Normal CBD measures 1.7 mm. Negative Tai's sign. Liver measures 13.1 cm with increased echogenicity. Normal pancreas. Aorta and IVC are patent. Normal hepatopetal flow. Normal right kidney measures 10.4 cm. IMPRESSION: 1. Normal gallbladder 2. Echogenic liver suggestive of hepatic steatosis versus intrinsic liver disease
[2016-12-15 22:45] VITALS: BP 121/75
[2016-12-16] VITALS (18 sets, daily range): BP systolic 90–135; BP diastolic 41–97
--- NOTE | 2016-12-16 17:28 | Progress Note ---
Subjective General Patient seen and examined, patient overnight was very agitated and going through withdrawal symptoms. Patient had recieved a fair amount of sedation overnight and was unable to participate with an exam. Patients blood work otherwise is normal and her vitals signs have been appropriate throughout the day. Constitutional Other (unable to perform due to AMS). Physical Exam Vital Signs / I&Os Vital Signs Date Time Temp Pulse Resp B/P Pulse O2 O2 Flow FiO2 Ox Delivery Rate 12/16 1730 89 19 117/62 98 Room Air 12/16 1626 74 24 135/69 98 Room Air 12/16 1500 73 22 134/81 97 Room Air 12/16 1414 98.1 65 18 114/69 97 Room Air 12/16 1315 72 20 114/65 93 Room Air 0.0 12/16 1200 63 108/67 96 Room Air 0.0 12/16 1100 65 16 106/61 96 Room Air 0.0 12/16 1000 96.6 65 19 108/60 97 Room Air 0.0 12/16 0900 66 20 100/50 100 Room Air 0.0 12/16 0830 97.0 66 18 96/41 95 Room Air 0.0 12/16 0746 110 12/16 0730 Room Air 12/16 0624 98.4 129 22 123/97 98 Room Air 0.0 12/16 0330 99.7 82 20 90/63 97 Room Air 12/15 2245 99.0 87 20 121/75 98 Room Air 12/15 1851 98 12/15 1839 99.3 100 19 119/78 97 Room Air I&O 12/15 0800 12/15 1600 12/16 0000 Intake Total 450 Output Total 500 Balance -50 General Appearance Alert, Oriented X3, No acute distress HEENT PERRLA, Moist mucous membranes Lungs Clear to auscultation, Normal air movement Neck No JVD, No masses, No lymphadenopathy, 2+ carotid pulse wo bruit Cardiovascular Regular rate and rhythm, Normal S1 and S2, No murmurs, gallops, rubs Abdomen Soft, No guarding, No rebound Extremities No edema, Normal pulses, No tenderness Skin - some erythema on the right wrist secondary to fighting against restraints Neurological - unable to perform secondary to sedation LAB Results Laboratory Tests 12/15 12/16 2100 0910 Chemistry Plasma Sodium (136 - 145 mmol/L) 133 Plasma Potassium (3.5 - 5.1 mmol/L) 3.7 Plasma Chloride (98 - 107 mmol/L) 100 CO2 (Enzymatic) (21 - 32 mmol/L) 25 BUN (7 - 18 mg/dL) 9 Creatinine (0.6 - 1.3 mg/dL) 0.7 Est GFR ( Amer) (mL/min) >60 Est GFR (Non-Af Amer) (mL/min) >60 Glucose (70 - 110 mg/dL) 114 Plasma Calcium (8.5 - 10.1 mg/dL) 8.2 Plasma Magnesium (1.8 - 2.4 mg/dL) 2.2 Ammonia (11 - 32 umol/L) 15 Hematology WBC (4.5 - 11.5 K/uL) 3.0 RBC (4.00 - 5.20 M/uL) 3.41 Hgb (12.0 - 16.0 gm/dL) 11.1 Hct (36.0 - 46.0 %) 32.3 MCV (80 - 100 fL) 95 MCH (26 - 34 pg) 32 RDW (11.6 - 14.8 %) 13.9 Neut % (Auto) (50 - 75 %) 76.4 Lymph % (Auto) (25 - 40 %) 12.4 [place] % (Auto) (3 - 14 %) 10.9 Eos % (Auto) (0 - 4 %) 0 Baso % (Auto) (0 - 2 %) 0.3 Plt Count, EDTA (150 - 400 K/uL) 90 PUBS MCHC (31 - 37 g/dL) 34 Serology Hepatitis A IgM Ab Pending Hep Bs Antigen Pending Hep B Core IgM Ab Pending Hepatitis C Antibody Pending Assessment and Plan Problem List 1. Alcohol withdrawal delirium Plan - will c/w precedex drip - will titrate down in the am to assess patients overall function - will continue to monitor blood work - will monitor in CCU for the time being
[2016-12-17] VITALS (23 sets, daily range): BP systolic 93–146; BP diastolic 47–85
--- NOTE | 2016-12-17 16:28 | Progress Note ---
Subjective General Patient seen and examined. Patient is awake enough to have a discussion. Patient aware about her alcohol abuse, and seemingly feels regretful for her recent behavior. Patient otherwise is still anxious and will require further stay for withdrawal symptoms. Constitutional Other. Physical Exam Vital Signs / I&Os Vital Signs Date Time Temp Pulse Resp B/P Pulse O2 O2 Flow FiO2 Ox Delivery Rate 12/17 1512 62 21 125/73 98 Room Air 12/17 1435 98.4 12/17 1422 63 20 113/69 98 Room Air 12/17 1315 69 18 98/59 98 Room Air 0.0 12/17 1202 82 19 118/75 98 Room Air 0.0 12/17 1100 67 12 106/63 99 Room Air 0.0 12/17 1000 99.7 68 21 109/66 97 Room Air 0.0 12/17 0900 67 23 105/57 98 Room Air 0.0 12/17 0810 73 23 93/54 98 Room Air 0.0 12/17 0745 Room Air 12/17 0700 69 22 96/66 98 Room Air 0.0 12/17 0600 99.3 65 22 105/70 97 Room Air 0.0 12/17 0526 73 12/17 0400 100.0 65 22 102/53 97 Room Air 0.0 12/17 0300 70 24 103/54 97 Room Air 0.0 12/17 0230 100.4 12/17 0200 71 26 96/47 96 Room Air 0.0 12/17 0100 100.0 82 20 112/60 97 Room Air 0.0 12/17 0000 89 26 110/68 96 Room Air 0.0 12/16 2312 116/74 12/16 2300 102.9 86 26 97 Room Air 0.0 12/16 2210 102.9 92 30 110/57 98 Room Air 12/16 2147 101 22 107/70 93 Room Air 12/16 2021 84 22 127/65 98 Room Air 12/16 2020 Room Air 12/16 1900 87 22 112/65 98 Room Air 12/16 1846 101.5 88 23 131/80 99 Room Air 12/16 1800 83 12/16 1730 89 19 117/62 98 Room Air 12/16 1626 74 24 135/69 98 Room Air I&O 12/16 0800 12/16 1600 12/17 0000 Intake Total 604 43 4932 Output Total 900 531 Balance 792 -237 7831 General Appearance No acute distress HEENT Atraumatic, EOMI, Moist mucous membranes Lungs Clear to auscultation, Normal air movement Cardiovascular Normal S1 and S2, No murmurs, gallops, rubs Abdomen Soft, No tenderness, No rebound, No hepatosplenomegaly Extremities No edema, Normal pulses, Strength = upper ext's, Strength = lower ext's Skin No Rashes, No Breakdown Neurological Sensation intact, Cranial nerves intact, No lateralizing signs Psych/Mental Status Confused LAB Results Laboratory Tests 12/17 0520 Chemistry Plasma Sodium (136 - 145 mmol/L) 136 Plasma Potassium (3.5 - 5.1 mmol/L) 3.6 Plasma Chloride (98 - 107 mmol/L) 102 CO2 (Enzymatic) (21 - 32 mmol/L) 24 BUN (7 - 18 mg/dL) 6 Creatinine (0.6 - 1.3 mg/dL) 0.7 Est GFR ( Amer) (mL/min) >60 Est GFR (Non-Af Amer) (mL/min) >60 Glucose (70 - 110 mg/dL) 99 Plasma Calcium (8.5 - 10.1 mg/dL) 7.5 Total Bilirubin (0.0 - 1.0 mg/dL) 0.5 AST (15 - 37 U/L) 121 ALT (12 - 78 U/L) 141 Alkaline Phosphatase (46 - 116 U/L) 59 Total Protein (6.4 - 8.2 g/dL) 5.7 Albumin (3.3 - 5.0 g/dL) 3.0 Hematology WBC (4.5 - 11.5 K/uL) 3.5 RBC (4.00 - 5.20 M/uL) 3.33 Hgb (12.0 - 16.0 gm/dL) 10.8 Hct (36.0 - 46.0 %) 31.3 MCV (80 - 100 fL) 94 MCH (26 - 34 pg) 32 RDW (11.6 - 14.8 %) 14.8 Neut % (Auto) (50 - 75 %) 59.7 Lymph % (Auto) (25 - 40 %) 27.6 [place] % (Auto) (3 - 14 %) 12.2 Eos % (Auto) (0 - 4 %) 0 Baso % (Auto) (0 - 2 %) 0.5 Plt Count, EDTA (150 - 400 K/uL) 68 PUBS MCHC (31 - 37 g/dL) 34 Assessment and Plan Problem List 1. Alcohol withdrawal delirium Plan -will continue with precedex for alcohol withdrawal -pt will be encouraged to eat as much as possible -will have family meeting regarding drinking abuse -will down titrate precedex tomorrow given continual shakiness and anxiousness -will continue to trend cmp and lfts 2. Thrombocytopenia Plan - Pt has an incidental finding of thrombocytopenia - Pt had never recieved heparin so unlikely to be heparin induced - given liver injury and abuse most likely secondary to poor nutrtition and alcohol abuse - given current count and findings will most likely opt to retest in 2 weeks if abstaining from alcohol - if bleding or further drops noted will investigate into other sources
[2016-12-18] VITALS (12 sets, daily range): BP systolic 137–156; BP diastolic 72–93
--- NOTE | 2016-12-18 12:36 | Provider's Discharge Care Plan ---
Problem, Goal, Plan Problem List 1. Alcohol withdrawal delirium Instructions: - avoid alcohol - follow up with your primary care provider - make arrangements for alcohol abuse treatment 2. Thrombocytopenia Instructions: - improving - need to be evaluated by primary care doctor in 2 weeks
[2016-12-18] MEDS ORDERED: ATIVAN1 MG PO (12:38)
--- NOTE | 2016-12-18 12:42 | Discharge Summary ---
Discharge Summary Report Admit Date 12/15/16 Discharge Date 12/18/16 Admission Diagnosis alcohol withdrawal Discharge Diagnosis alcohol withdrawal Brief History From Dr Tubbs H&P The patient is a 51-year-old woman who presented to the emergency department brought in by her uncle this afternoon with complaints of abdominal pain. Shortly after they arrived, it became obvious she was quite agitated and hallucinating and her uncle indicated the problem was mostly alcohol withdrawal. The patient says she has been drinking hard cider 3-5 doses per day, which she will use for 3 or 4 days and then stop for several days. She says her last drink was about a week and a half ago. Her uncle states confidentially that she has been drinking a lot of vodka and thinks she was drinking up until a day or two ago. She had become very belligerent with her mother, with whom she is living. She had probably stopped drinking within the last 24-48 hours, he thinks. She denies having any other major medical problems. She has gone through some detox treatments in the past, but has never persisted with a full long-term alcohol abuse treatment program. Hospital Course Patient was admitted for acute alcohol withdrawal. Patient was initially just treated with ativan. However over time patient became increasingly agitated and required higher doses of sedation. Patient eventually as a result had to go on a precedex drip. Patient was able to tolerate the precedex drip without any resulting increased agitation. Patient upon arrival was seen to have acute liver injury most likely secondary to the alcohol abuse. Patients resulting liver enzymes showed significant improvement. Patient lastly was seen to have worsening thrombocytopenia. Patients etiology is most likely linked to alcohol abuse given lack of other factors. Patient will need to have her blood work re- assessed to two weeks. Patient was otherwise titrated off the precedex drip and eventually it was discontinued. Patient is otherwise stable for transrer. Patient will make arrangments for alcohol rehabilitation. General Appearance Alert, Oriented X3, No acute distress Lungs Clear to auscultation Cardiovascular Normal S1, Normal S2 Abdomen Soft, No tenderness, No hepatospenomegaly Skin No Breakdown Neurological Normal speech, Normal tone, Sensation intact, Cranial nerves 3-12 NL Discharge Instructions/Meds - obtain primary care doctor - follow up on your platelet level in 2 weeks - seek help for your alcohol dependence
== END 2016-12-18 14:00 | disposition home or self-care (01) | DRG 775 ==
LOC: ED SRH 14:11 → TRANS SRH 17:00 → ACUTE2 SRH 18:00 → CC SRH 18:00 → ACUTE2 SRH 18:00 → CC SRH 12-16 06:01
PROVIDERS: ADMIT Emergency Medicine
DX: F10.231 Alcohol dependence with withdrawal delirium (principal); F10.232 Alcohol dependence with withdrawal with perceptual disturbance; K72.00 Acute and subacute hepatic failure without coma; E86.0 Dehydration; D69.59 Other secondary thrombocytopenia; F32.9 Major depressive disorder, single episode, unspecified
CPT/HCPCS: 90004; 90047; 90074; 90100; 91588; 92010; 92132; 92235; 92530; 92720; 92760; 92761; 92762; 92763; 92764; 92765; 92766; 92767; 93070; 95059; 99787

== ENCOUNTER 2017-02-09 17:02 | Emergency (ER) | payer OTHER ==
[~2017-02-09 17:02] MED LIST: ATIVAN1 MG PO
--- NOTE | 2017-02-10 06:25 | ED NURSING NOTES ---
Clinical Report - Nurses [facility] [address] [place] [address] 02/09/2017 17:03 Patient: ROSALVA BROOKS TRIAGE Triage time 17:21. Acuity: LEVEL 2. Chief Complaint: (Family states pt. has had bizarre behavior and has been hallucinating. She was also making comments about her . Family states the hallucinations started today.) and INTOXICATION. Alert. No acute distress. ( Family is concerned with pt because she has not been eating or drinking water for several days. She has been drinking for 11 days straight. She was discharged from rehab on the and two days later she started again.). SEPSIS SCREEN: Sepsis Screen. Negative (no infection suspected/documented). GRACY COMA SCORE: [place] Coma Scale: 15- eyes open spontaneously (4); best verbal response- oriented x 4 (5); best motor response- obeys commands (6). --17:39 Marianne Myrick R.N. 17:21 02/09/17. BP: 125/73. HR: 102. RR: 16. O2 saturation: 94%. Temp: 98.2 F. Ramirez-Butler pain scale: 4/10. --17:39 Marianne Myrick R.N. Weight: 65.7 kg stated. Height/Length: 67 inches Per Patient. BMI: 22.7. --17:32 Marianne Myrick R.N. Medications ClonazePAM Oral. --17:31 Marianne Myrick R.N. Allergies No Known Drug Allergy. --17:30 Marianne Myrick R.N. History Arrived by private vehicle. Historian: patient. Accompanied by family. Primary physician (Miah). This occurred "11 days straight". 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 PAST MEDICAL HX: Immunizations: up-to-date. SOCIAL HX: Never smoker. Heavy alcohol use; consumes a large amount of liquor daily. ABUSE ASSESSMENT: No report of abuse. SELF HARM ASSESSMENT: A self harm assessment was performed. The patient answered "no" to the question "Have you recently felt down, depressed, or hopeless?", "Have you noticed less interest or pleasure in doing things?", "Do you have thoughts of harming or killing yourself?", "Are you here because you tried to hurt yourself?", "Have you ever tried to hurt yourself before today?", "Have you recently had thoughts about harming or killing others?" and "Do you have any dangerous items in your possession?". NUTRITIONAL RISK ASSESSMENT: The nutritional risk assessment revealed no deficiencies. FUNCTIONAL ASSESSMENT: Functional assessment: no impairments noted. LEARNING NEEDS ASSESSMENT: The learning needs assessment revealed no barriers. --17:39 Marianne Myrick R.N. PROBLEMS: Alcohol Withdrawal. Hypertension. Contusion. Hypernatremia. Alcohol Intoxication. Alcoholism. Depression. Anxiety Reaction. --17:32 Marianne Myrick R.N. Interventions ID band on patient. Precautions initiated. Transported via wheelchair. --17:39 Marianne Myrick R.N. NURSING PROGRESS NOTES Patient gowned. Suicide precautions initiated: a safety sweep of the room has been completed. Room made safe. Continuous one on one supervision, family at bedside, clothing / valuables removed and placed at the nurse's station. ED Physician has been notified. Two patient identifiers checked. Call light placed in reach. Side rails up x 2. Bed placed in lowest position. Brakes of bed on. Patient ready for evaluation- chart flagged. --17:41 Marianne Myrick R.N. 17:42 02/09/2017 Site #1 started via IV in the left hand with an 20g angiocath, with aseptic technique and good blood return; one attempt. Blood drawn: rainbow set. Labeled in the presence of the patient and sent to the lab. Saline lock flushed with 10 mL saline (accessed by ELMA Hickman). --17:42 Marianne Myrick R.N. Patient ID band checked for patient name, birthdate and medical record number: patient confirmed. Instructions provided to collect clean catch urine and patient verbalized understanding. Catheterized urine collected with return of yellow-colored clear urine; sample sent to lab for urinalysis. Specimen labeled in the presence of the patient. --17:43 Marianne Myrick R.N. ( Pt. belongings placed in room 3). --18:04 Marianne Myrick R.N. ( 17:45 pt. placed in direct sight of nurses station.). --18:40 Marianne Myrick R.N. Care transferred and report given (to ELMA Prieto). --19:03 Marianne Myrick R.N. 19:12 02/09/17. ( assumed care of pt, pt in poc, family at bedside, waiting poc). --20:53 Ida Welch R.N. 19:12 02/09/17. BP: 104/58. HR: 98. RR: 15. O2 saturation: 95%. Pain level now 0/10. --20:53 Ida Welch R.N. 23:45 02/09/17. ( breathalizer at 2345 0.238, pt remains anxious, "I want to go home" pt notified that PAT team here and that he needs to be evaluated prior to that decision being made. pt assisted back to bed, provided warm blankets. offered food/drink and declines.). --23:59 Ida Welch R.N. 23:59 02/09/17. BP: 157/77. HR: 101. Pain level now 0/10. --00:00 Ida Welch R.N. 02:51 Breathalyzer 0.17. --02:51 McQuoid, Shira, ER Tech1 ( Patient given PO food and fluids. Resting quietly with family at bedside and has no complaints at this time.). --03:08 Helene Booth 03:47 Breathalyzer 0.16. --03:48 McQuoid, Shira, ER Tech1 03:59 02/10/17. BP: 110/62. HR: 100. RR: 20. O2 saturation: 98% on room air. --04:05 Helene Booth 05:12 02/10/17. BP: 112/60. HR: 112. RR: 20. O2 saturation: 99% on room air. --05:13 Helene Booth. DISPOSITION / DISCHARGE 06:30 02/10/17. BP: 101/60. HR: 100. RR: 20. O2 saturation: 96% on room air. Temp: 98 F (oral). Pain level now: 0/10. --06:41 Helene Booth 06:25 02/10/2017 Site #1 removed upon discharge. Catheter intact. Bandaid applied. --06:42 Helene Booth 06:30 02/10/17. Condition at departure: stable. The goals identified in the patient's plan of care were met. No learning barriers present. Discharge instructions provided and reviewed with the patient and family. Reviewed need for increased fluid intake. Patient and family verbalized understanding. Written instructions provided in Estonian. ( Follow up with your psychiatric appointment as scheduled. Follow up with your PCP to discuss quitting alcohol. Stay with a responsible adult until better. Drink plenty of fluids and rest. Belongings returned to patient. Patient verbalized understanding and had no additonal questions at this time.). The patient was discharged by the physician. She was discharged home and accompanied by family. She left the Emergency Department ambulatory and via private vehicle. Family member driving. FALL RISK ASSESSMENT: Fall risk assessment completed. No fall risk identified. --06:41 Helene Booth. Locked/Released at 02/10/2017 6:43 by Helene Booth,
--- NOTE | 2017-02-10 06:25 | ED ORDER SUMMARY ---
..... Patient: ROSALVA BROOKS OrderSheet [facility] VisitID: [id number] [place] [address] 51y, F Registration Date/Time: 02/09/2017 ORDER SHEET Weight: 65.7 kg (stated) Allergies: No Known Drug Allergy GENERAL ORDERS: CBC w Diff Urgent (18:47 02/09/2017 DMiller ) (18:48 TBergley) CMP Urgent (18:47 02/09/[address]) (18:48 TBergley) UA-Culture if indicated Urgent (18:47 02/09/2017 DMiller ) (18:48 TBergley) Urine Drug Screen Urgent (18:47 02/09/[address] (18:48 TBergley) Ethyl Alcohol Urgent (18:47 02/09/[address] (18:48 TBergley) Urine Drug Screen Urgent (21:43 02/09/2017 KKnebel R.N. per protocol) (Cancelled: Duplicate Order21:44 KKnebel R.N.) Ethyl Alcohol Urgent (21:43 02/09/2017 KKnebel R.N. per protocol) (Cancelled: Duplicate Order21:44 KKnebel R.N.) CBC w Diff Urgent (21:43 02/09/2017 KKnebel R.N. per protocol) (Cancelled: Duplicate Order21:44 KKnebel R.N.) CMP Urgent (21:43 02/09/2017 KKnebel R.N. per protocol) (Cancelled: Duplicate Order21:44 KKnebel R.N.) MEDICATION ORDERS: IV FLUIDS: ORDER SHEET NOTES: This document has not been locked and should not be saved in the medical record.
--- NOTE | 2017-02-10 06:25 | ED CLINICAL REPORT ---
Clinical Report - Physicians/Mid Levels [facility] [address] [place] [address] 02/09/2017 17:03 Patient: ROSALVA BROOKS *This is a preliminary document and is subject to change Time Seen: 18:15; initial patient contact. Arrived- By private vehicle. Historian- patient and family. CPT: ER phys charges level 5 (#[id number]). HISTORY OF PRESENT ILLNESS Chief Complaint: INTOXICATED. Does not want detox. Symptoms started several years ago. Duration of substance abuse- several years. Substances abused: Alcohol. Last drink just prior to arrival. No nausea, vomiting, abdominal pain, tremors or seizure. No agitation, delusions or hallucinations. She has been confused and depressed and had suicidal thoughts. Not paranoid. The symptoms are described as severe. No injuries noted. Similar symptoms previously: Many times. Recent medical care: Not recently seen/assessed. REVIEW OF SYSTEMS No headache, chest pain or palpitations. She has had dizziness. All systems otherwise negative, except as recorded above. PAST HISTORY Alcohol Withdrawal. Hypertension. Contusion. Hypernatremia. Alcohol Intoxication. Alcoholism. Depression. Anxiety Reaction. SOCIAL HISTORY Never smoker. Heavy alcohol use. Patient is a longstanding alcoholic. Under the influence in E.D. No drug use. Has social support. Has place to stay. ADDITIONAL NOTES The nursing notes have been reviewed. PHYSICAL EXAM Vital Signs: 02/09/2017 17:21 BP: 125/73. HR: 102. RR: 16. O2 saturation: 94%. Temp: 98.2 F. Ramirez-Butler pain scale: 4/10. Have been reviewed. Blood pressure normal. Tachycardic. Respiratory rate normal. Temperature normal. Oxygen saturation low. Appearance: The patient's speech is slurred and odor of alcohol is present. Patient in mild distress. Head: Head atraumatic. ENT: Airway intact. CVS: Normal heart rate and rhythm. Heart sounds normal. Respiratory: No respiratory distress. Breath sounds normal. Abdomen: Soft and nontender. No organomegaly. Skin: Skin warm and dry. Normal skin color. Extremities: No lower extremity edema. Neuro: Mildly altered mental status: confused. Alertness is decreased(intoxicated). LABS, X-RAYS, AND EKG Laboratory Tests: UA-Culture if indicated: (NARCISA: 02/09/2017 17:34) ( MsgRcvd 02/09/2017 19:40) Final results Test Result Flag Units (Reference) URINE COLOR STRAW URINE APPEARANCE CLEAR URINE GLUCOSE NEGATIVE (NEGATIVE) URINE BILIRUBIN NEGATIVE (NEGATIVE) URINE KETONE NEGATIVE (NEGATIVE) URINE SPECIFIC GRAVITY <= 1.005 L (1.010-1.030) URINE PH 6.0 (5.0-8.0) URINE PROTEIN NEGATIVE (NEGATIVE) URINE UROBILINOGEN 0.2 EU/dL (0.2-1.0) URINE NITRITE NEGATIVE (NEGATIVE) URINE BLOOD NEGATIVE (NEGATIVE) URINE LEUK ESTERASE NEGATIVE (NEGATIVE) URINE RBC NONE SEEN rbc/hpf (0-1) URINE WBC RARE wbc/hpf (0-1) URINE EPITHELIAL CELLS 0-1 EPI/hpf (0-5) URINE BACTERIA NONE SEEN (NONE SEEN) URINE COMMENT CULT NOT INDICATED URINE CULTURES ARE SET-UP BASED ON THE FOLLOWING CRITERIA:POSITIVE NITRITEPOSITIVE LEUKOCYTE ESTERASEGREATER THAN 10 WHITE BLOOD CELLSMODERATE (2+) OR GREATER BACTERIA CBC w Diff: (NARCISA: 02/09/2017 17:34) ( MsgRcvd 02/09/2017 19:07) Final results Test Result Flag Units (Reference) WHITE BLOOD COUNT 7.6 K/uL (4.5-11.5) RED BLOOD COUNT 4.08 M/uL (4.00-5.20) HEMOGLOBIN 12.7 gm/dL (12.0-16.0) HEMATOCRIT 38.0 % (36.0-46.0) MEAN CELL VOLUME 93 fL (80-100) MEAN CORPUSCULAR HGB 31 pg (26-34) MEAN CORPUSCULAR HGB CONC 34 g/dL (31-37) RED CELL DISTRIBUTION WIDTH 12.5 % (11.6-14.8) PLATELET COUNT 215 K/uL (150-400) NEUTROPHIL % 65.3 % (50-75) LYMPH % 31.6 % (25-40) MONO % 2.0 L % (3-14) EOSINOPHIL % 0.6 % (0-4) BASOPHIL % 0.5 % (0-2) Urine Drug Screen: (NARCISA: 02/09/2017 17:34) ( MsgRcvd 02/09/2017 19:25) Final results Test Result Flag Units (Reference) AMPHETAMINE/METHAMPHETAMINE NEGATIVE (NEGATIVE) BARBITURATE NEGATIVE (NEGATIVE) BENZODIAZEPINE NEGATIVE (NEGATIVE) CANNABINOID NEGATIVE (NEGATIVE) COCAINE NEGATIVE (NEGATIVE) ECSTASY NEGATIVE (NEGATIVE) METHADONE NEGATIVE (NEGATIVE) OPIATE NEGATIVE (NEGATIVE) The urine drug screen is a qualitative screening test fordrug overdose and abuse. All screen results should beconsidered as presumptive.Drugs screened for are as follows:BenzodiazepinesCocaineAmphetamines/MetamphetaminesTHC (Tetrahydrocannabinol)OpiatesBarbituratesEcstasyMethadonePositive results are unconfirmed. For confirmation, notifythe lab for the specimen to be sent to the reference lab.All confirmations must be performed by a differentmethodology.The ingestion of natural herbal and plant productscontaining Ephedra/Ephedra metabolites can produce in urineone or more substances capable of cross reacting withamphetamine/methamphetamine immunoassays. These testsprovide a preliminary result only. A more specificalternative chemical method must be used to obtain aconfirmed analytical result. CMP: (NARCISA: 02/09/2017 17:34) ( MsgRcvd 02/09/2017 19:44) Final results Test Result Flag Units (Reference) GLUCOSE 97 mg/dL (70-110) BUN 4 L mg/dL (7-18) CREATININE 0.6 mg/dL (0.6-1.3) Estimated GFR >60 mL/min Estimated GFR- >60 mL/min Note: Persistent reduction over 3 months in eGFR<60 mL/min/1.73 m2 defines CKD. Patients with eGFR values>=60 mL/min/1.73 m2 may also have CKD if evidence ofpersistent proteinuria. Additional information may be foundat www.kidney.org. SODIUM 139 mmol/L (136-145) POTASSIUM 4.1 mmol/L (3.5-5.1) CHLORIDE 99 mmol/L (98-107) CARBON DIOXIDE 25 mmol/L (21-32) CALCIUM 8.3 L mg/dL (8.5-10.1) TOTAL PROTEIN 7.8 g/dL (6.4-8.2) ALBUMIN 4.1 g/dL (3.3-5.0) BILIRUBIN, TOTAL 1.4 H mg/dL (0.0-1.0) ALKALINE PHOSPHATASE 89 U/L (46-116) AST (SGOT) 44 H U/L (15-37) ALT (SGPT) 30 U/L (12-78) ETHYL ALCOHOL 429 H mg/dL (3-10) . PROGRESS AND PROCEDURES Course of Care: 06:19 02/10/17. PAT team has evaluated and cleared for discharge home with reason for suicidal ideation related to the alcohol intoxication. Pt has Son who wants to get CPS in home to remove other kids. PAT team is initiating CPS visit. Pt now alert and conversant. Denies suicidal ideation now. Patient/family counseled. Disposition: Discharged. Condition: stable and improved. CLINICAL IMPRESSION Suicidal ideation Alcohol intoxication with delirium and alcohol dependence. INSTRUCTIONS Stay with responsible adult family member (or other responsible adult) until better. No alcohol. Seek medical help to quit drinking. (Follow no harm agreement and crisis plan.). Warnings: Further evaluation is necessary. GENERAL WARNINGS: Return or contact your physician immediately if your condition worsens or changes unexpectedly, if not improving as expected, or if other problems arise. Your Current Medications: CONTINUE TAKING THE FOLLOWING MEDICATIONS: ClonazePAM Oral. Follow-up: Follow up with your doctor in one week. Call for an appointment. Follow up with a psychiatrist in one week. Call for an appointment. Understanding of the discharge instructions verbalized by patient and family. Vinnie Sheldon MD
--- NOTE | 2017-02-10 06:25 | ED ORDER SUMMARY ---
..... Patient: ROSALVA BROOKS OrderSheet [facility] VisitID: [id number] [place] [address] 51y, F Registration Date/Time: 02/09/2017 ORDER SHEET Weight: 65.7 kg (stated) Allergies: No Known Drug Allergy GENERAL ORDERS: CBC w Diff Urgent (18:47 02/09/2017 DMiller ) (18:48 TBergley) CMP Urgent (18:47 02/09/[address]) (18:48 TBergley) UA-Culture if indicated Urgent (18:47 02/09/2017 DMiller ) (18:48 TBergley) Urine Drug Screen Urgent (18:47 02/09/[address] (18:48 TBergley) Ethyl Alcohol Urgent (18:47 02/09/[address] (18:48 TBergley) Urine Drug Screen Urgent (21:43 02/09/2017 KKnebel R.N. per protocol) (Cancelled: Duplicate Order21:44 KKnebel R.N.) Ethyl Alcohol Urgent (21:43 02/09/2017 KKnebel R.N. per protocol) (Cancelled: Duplicate Order21:44 KKnebel R.N.) CBC w Diff Urgent (21:43 02/09/2017 KKnebel R.N. per protocol) (Cancelled: Duplicate Order21:44 KKnebel R.N.) CMP Urgent (21:43 02/09/2017 KKnebel R.N. per protocol) (Cancelled: Duplicate Order21:44 KKnebel R.N.) MEDICATION ORDERS: IV FLUIDS: ORDER SHEET NOTES: This document has not been locked and should not be saved in the medical record.
--- NOTE | 2017-02-12 23:04 | ED MAR SUMMARY ---
..... Medication Administration Record [facility] [address] [place], [place] [id number] Patient: ROSALVA BROOKS Visit ID: [id number] 51y, F Weight: 65.7 kg Height/Length: 67 in BMI: 22.7 ALLERGIES: No Known Drug Allergy
--- NOTE | 2017-02-12 23:04 | ED MED RECONCILIATION SUMMARY ---
Patient: ROSALVA BROOKS Medication Reconciliation Report [facility] VisitID: [id number] [address] [place] [place] [address] 51y, F Registration Date/Time: 02/09/2017 Weight: 65.7 kg Height/Length: 67 in. BMI: 22.7 ALLERGIES: No Known Drug Allergy The patient's Home Medications are listed below: CONTINUE TAKING THE FOLLOWING MEDICATIONS: ClonazePAM Oral The source(s) of the original Home Medication information: Not obtained. The following Medications were given to the patient in the Emergency Department: None. The following Medications were prescribed to the patient: None.
--- NOTE | 2017-02-12 23:04 | ED DISCHARGE INSTRUCTIONS ---
Patient: ROSALVA BROOKS General Instructions [facility] VisitID: [id number] [place] [address] 51y, F Registration Date/Time: 02/09/2017 Suicidal ideation Alcohol intoxication with delirium and alcohol dependence. INSTRUCTIONS Stay with responsible adult family member (or other responsible adult) until better. No alcohol. Seek medical help to quit drinking. (Follow no harm agreement and crisis plan.). Warnings: Further evaluation is necessary. GENERAL WARNINGS: Return or contact your physician immediately if your condition worsens or changes unexpectedly, if not improving as expected, or if other problems arise. Your Current Medications: CONTINUE TAKING THE FOLLOWING MEDICATIONS: ClonazePAM Oral. Follow-up: Follow up with your doctor in one week. Call for an appointment. Follow up with a psychiatrist in one week. Call for an appointment. Understanding of the discharge instructions verbalized by patient and family. ADDITIONAL INFORMATION Alcohol Intoxication Alcohol intoxication occurs when you drink alcohol faster than your liver can remove it from your system. Alcohol intoxication affects your judgment and coordination. Very high blood alcohol levels can cause coma, very slow breathing and even . If you drink alcohol every day, this may gradually cause permanent damage to your liver, brain, heart, pancreas and other organs. Alcohol use during may cause permanent damage to the growing baby. Home Care: Do not drink any more alcohol. DO NOT DRIVE until all effects of the alcohol have worn off. Get lots of rest over the next few days. Drink plenty of water and other non-alcoholic liquids. Try to eat regular meals. If you have been drinking heavily on a daily basis, you may go through alcohol withdrawl. This is also called the shakes or DTs. The usual symptoms last 3 to 4 days and may include nervousness, shakiness, nausea, sweating or sleeplessness. During this time, it is best that you stay with family or friends who can help and support you. You can also admit yourself to a residential detox program. If your symptoms are severe, contact your doctor for medicines to help. Follow Up: If alcohol is causing a problem in your life, these and other organizations can help you: Alcoholics Anonymous offers support through a self-help fellowship. There are no dues or fees. See the Yellow Pages and call for time and place of meetings. www.aa.org [employer]bi offers support to families of alcohol users. 798.701.3045 www.al-yris.org National [place] On Alcoholism And Drug Dependence 399-437-2165 www.ncadd.org There are also inpatient or residential alcohol detox programs. Check the Internet or phonebook Yellow Pages under Drug Abuse & Treatment Centers. Get Prompt Medical Attention if any of the following occur: there) Depression Depression is one of the most common mental health problems today. It is not just a state of unhappiness or sadness. It is a true disease. The cause seems to be related to a decrease in chemicals that transmit signals in the brain. Having a family history of depression, alcoholism or suicide increases the risk. Chronic illness, chronic pain, migraine headaches and high emotional stress also increase the risk. Depression can cause many different symptoms, such as: -- Loss of appetite -- Over-eating -- Not being able to sleep -- Sleeping too much -- Tiredness not related to physical exertion -- Restlessness or irritability -- Slowness of movement or speech -- Feeling depressed or withdrawn -- Loss of interest in things you once enjoyed -- Difficulty in concentrating, poor memory, have trouble making decisions -- Thoughts of harming or killing oneself, or thoughts that life is not worth living -- Low self-esteem The best treatment for depression is a combination of medicine and psychotherapy. Antidepressant medicines can reduce suffering and can improve the ability to function during the depressed period. Therapy can offer emotional support and help you understand emotional factors that may be causing the depression. Home Care: 1) Be kind to yourself. Make it a point to do things that you enjoy (gardening, walking in nature, going to a movie, etc.). Reward yourself for small successes. 2) Take care of your physical body. Eat a balanced diet (low in saturated fat and high in fruits and vegetables). Establish an exercise plan at least 3 times a week for 30 minutes. Even mild-moderate exercise (like brisk walking) can make you feel better. 3) Avoid alcohol, which can make depression worse. Follow-Up with your doctor as advised. It is important to keep in contact with a health care provider until your symptoms begin to improve. Get Prompt Medical Attention if any of the following occur: -- Feeling extreme depression, fear, anxiety, or anger toward yourself or others -- Feeling out of control -- Feeling that you may try to harm yourself or another -- Hearing voices that others do not hear -- Seeing things that others do not see -- Cant sleep or eat for 3 days in a row You have been given the following additional information: Alcohol Intoxication Depression Stay with responsible adult family member (or other responsible adult) until better. (Electronically signed by Vinnie Sheldon MD 02/12/2017 23:04)
--- NOTE | 2017-02-12 23:04 | ED MED RECONCILIATION SUMMARY ---
Patient: ROSALVA BROOKS Medication Reconciliation Report [facility] VisitID: [id number] [address] [place] [place] [address] 51y, F Registration Date/Time: 02/09/2017 Weight: 65.7 kg Height/Length: 67 in. BMI: 22.7 ALLERGIES: No Known Drug Allergy The patient's Home Medications are listed below: CONTINUE TAKING THE FOLLOWING MEDICATIONS: ClonazePAM Oral The source(s) of the original Home Medication information: Not obtained. The following Medications were given to the patient in the Emergency Department: None. The following Medications were prescribed to the patient: None.
--- NOTE | 2017-02-12 23:04 | ED MAR SUMMARY ---
..... Medication Administration Record [facility] [address] [place], [place] [id number] Patient: ROSALVA BROOKS Visit ID: [id number] 51y, F Weight: 65.7 kg Height/Length: 67 in BMI: 22.7 ALLERGIES: No Known Drug Allergy
== END 2017-02-10 06:38 | disposition home or self-care (01) ==
LOC: ED SRH 17:02
DX: F10.221 Alcohol dependence with intoxication delirium (principal); R45.851 Suicidal ideations; I10 Essential (primary) hypertension; Z79.899 Other long term (current) drug therapy
CPT/HCPCS: 81460; 90004; 90100; 92010; 92760; 92761; 92762; 92763; 92764; 92765; 92766; 92767; 95059

== ENCOUNTER 2017-02-10 13:00 | Emergency (ER) | payer OTHER ==
--- NOTE | 2017-02-10 15:00 | ED CLINICAL REPORT ---
Clinical Report - Physicians/Mid Levels [facility] [address] [place] [address] 02/10/2017 13:02 [id number] Time Seen: 13:27 Feb 10 2017. Arrived- By private vehicle. Historian- patient. HISTORY OF PRESENT ILLNESS Chief Complaint: Wants to stop drinking. Referred for medical clearance. Wants to enter detox program. Symptoms started today. Substances abused: Last drink less than 24 hours ago. No fever, chills, nausea, seizure or delusions. Patient reports recent relapse was released after a 28 day program on the or 29 January, and relapse a few days after, and has been drinking over the last 7 days. The symptoms are described as mild. No injuries noted. REVIEW OF SYSTEMS The patient has not had weight loss. No sweats, headache, dizziness, chest pain or sore throat. No cough, joint pain or enlarged lymph nodes. All systems otherwise negative, except as recorded above. SOCIAL HISTORY Never smoker. Alcohol use. No drug use. Has social support. Has place to stay. ADDITIONAL NOTES The nursing notes have been reviewed. PHYSICAL EXAM Vital Signs: 02/10/2017 13:21 BP: 154/90. HR: 110. RR: 20. O2 saturation: 98%. Temp: 98.6 F. Appearance: Alert. Head: Head atraumatic. Eyes: Pupils equal, round and reactive to light. ENT: Normal ENT inspection. Airway intact. Moist mucous membranes. Pharynx normal. No pharyngeal erythema. Normal ear exam. Neck: Normal inspection. CVS: Normal heart rate and rhythm. Heart sounds normal. Respiratory: No respiratory distress. Breath sounds normal. Abdomen: Soft. Back: Normal inspection. Skin: Skin warm. Normal skin color. Neuro: Alert. Oriented X 3. Verbal response is not abnormal. No aphasia. Mood/affect normal. Speech normal. No cerebellar findings. No motor deficit. PROGRESS AND PROCEDURES Course of Care: patient has no complaints. This appears to be some confusion as the patient was instructed to return and to obtain a bed which there was made available at [place]. However her evaluation from yesterday does not indicate necessary need of inpatient, and thus she would have to be reevaluated for inpatient treatment, she did not wish for treatment yesterday and was only recommended for outpatient treatment. Patient this time does not want to wait, has no symptoms denies suicidal or homicidal ideation, her brother has been with her, and she wishes to go home left before discharge instructions. Patient is stable. Patient/family counseled. Disposition: Discharged. Condition: good. CLINICAL IMPRESSION Substance abuse problems: abuse of alcohol. Substance dependence problems: dependence on alcohol. (Electronically signed by Emma Hunt P.A.-C 02/10/2017 15:38)
--- NOTE | 2017-02-10 15:00 | ED CLINICAL REPORT ---
Clinical Report - Physicians/Mid Levels [facility] [address] [place] [address] 02/10/2017 13:02 [id number] Time Seen: 13:27 Feb 10 2017. Arrived- By private vehicle. Historian- patient. HISTORY OF PRESENT ILLNESS Chief Complaint: Wants to stop drinking. Referred for medical clearance. Wants to enter detox program. Symptoms started today. Substances abused: Last drink less than 24 hours ago. No fever, chills, nausea, seizure or delusions. Patient reports recent relapse was released after a 28 day program on the or 29 January, and relapse a few days after, and has been drinking over the last 7 days. The symptoms are described as mild. No injuries noted. REVIEW OF SYSTEMS The patient has not had weight loss. No sweats, headache, dizziness, chest pain or sore throat. No cough, joint pain or enlarged lymph nodes. All systems otherwise negative, except as recorded above. SOCIAL HISTORY Never smoker. Alcohol use. No drug use. Has social support. Has place to stay. ADDITIONAL NOTES The nursing notes have been reviewed. PHYSICAL EXAM Vital Signs: 02/10/2017 13:21 BP: 154/90. HR: 110. RR: 20. O2 saturation: 98%. Temp: 98.6 F. Appearance: Alert. Head: Head atraumatic. Eyes: Pupils equal, round and reactive to light. ENT: Normal ENT inspection. Airway intact. Moist mucous membranes. Pharynx normal. No pharyngeal erythema. Normal ear exam. Neck: Normal inspection. CVS: Normal heart rate and rhythm. Heart sounds normal. Respiratory: No respiratory distress. Breath sounds normal. Abdomen: Soft. Back: Normal inspection. Skin: Skin warm. Normal skin color. Neuro: Alert. Oriented X 3. Verbal response is not abnormal. No aphasia. Mood/affect normal. Speech normal. No cerebellar findings. No motor deficit. PROGRESS AND PROCEDURES Course of Care: patient has no complaints. This appears to be some confusion as the patient was instructed to return and to obtain a bed which there was made available at [place]. However her evaluation from yesterday does not indicate necessary need of inpatient, and thus she would have to be reevaluated for inpatient treatment, she did not wish for treatment yesterday and was only recommended for outpatient treatment. Patient this time does not want to wait, has no symptoms denies suicidal or homicidal ideation, her brother has been with her, and she wishes to go home left before discharge instructions. Patient is stable. Patient/family counseled. Disposition: Discharged. Condition: good. CLINICAL IMPRESSION Substance abuse problems: abuse of alcohol. Substance dependence problems: dependence on alcohol. (Electronically signed by Emma Hunt P.A.-C 02/10/2017 15:38)
--- NOTE | 2017-02-10 15:00 | ED NURSING NOTES ---
Clinical Report - Nurses [facility] [address] [place] [address] 02/10/2017 13:02 Patient: ROSALVA BROOKS TRIAGE Triage time 13:Feb 10 2017. Acuity: LEVEL 4. Chief Complaint: (wants to be admitted to a rehab for alcohol withdrawl). BRUCE COMA SCORE: Bruce Coma Scale: 15- eyes open spontaneously (4); best verbal response- oriented x 4 (5); best motor response- obeys commands (6). --13:49 Juan Manuel Reza R.N. 13:21 02/10/17. BP: 154/90. HR: 110. RR: 20. O2 saturation: 98%. Temp: 98.6 F. Pain level now 0/10. --13:49 Juan Manuel Reza R.N. Weight: 63.5 kg stated. Height/Length: 67 inches Per Patient. BMI: 21.9. --13:48 Juan Manuel Reza R.N. Medications ClonazePAM Oral. --13:26 Juan Manuel Reza R.N. Allergies No Known Drug Allergy. --13:26 Juan Manuel Reza R.N. History Arrived by private vehicle. Historian: patient. Accompanied by family. Onset: just prior to arrival. ( Last drink was yesterday and relapsed the from being out of treatment on the . Was screened for placement this am but didn't want to be admitted. Instructions were printed for [facility] to [facility] but when brother called [facility] denied their placement states patient was not high enough acuity and needs another eval before placement.). She has had anxiety, describes feelings of depression and has been confused. ( Alcoholic for past 5 years.). PAST MEDICAL HX: Anxiety. Psychiatric illness. No history of diabetes mellitus or hypertension. Immunizations: up-to-date. The patient is post-menopausal. SOCIAL HX: Never smoker. Regular alcohol use; consumes one liquor bottle. Last drink was 24 to 48 hours ago. No drug use. SELF HARM ASSESSMENT: A self harm assessment was performed. The patient answered "no" to the question "Have you recently felt down, depressed, or hopeless?" and "Do you have thoughts of harming or killing yourself?". FALL RISK ASSESSMENT: Fall risk assessment completed. No fall risk identified. NUTRITIONAL RISK ASSESSMENT: The nutritional risk assessment revealed no deficiencies. FUNCTIONAL ASSESSMENT: Functional assessment: no impairments noted. LEARNING NEEDS ASSESSMENT: The learning needs assessment revealed no barriers. ABUSE ASSESSMENT: Abuse assessment: (yes) The patient was asked "Do you feel safe in your home?". SKIN INTEGRITY ASSESSMENT: Skin integrity risk assessment completed. No skin integrity risk identified. --13:49 Juan Manuel Reza R.N. PROBLEMS: Suicidal Ideation. Alcohol Withdrawal. Hypertension. Contusion. Hypernatremia. Alcohol Intoxication. Alcoholism. Depression. Anxiety Reaction. --13:44 Juan Manuel Reza R.N. ADDITIONAL SURGERIES: no known surgeries. Interventions ID band on patient. --13:49 Juan Manuel Reza R.N. PHYSICAL ASSESSMENT Ambulatory to room. GENERAL / NEURO / PSYCH: Alert. Oriented X 4. Appears anxious. Patient's mood/affect appears flat. Poor eye contact. ( States feeling anxious with the withdraws). RESPIRATORY: Respirations not labored. Breath sounds within normal limits. CVS: Normal heart rate and rhythm. Capillary refill less than 2 seconds. GI / : Abdomen soft and nontender. Bowel sounds within normal limits. ( Normal BM few hours ago.). SKIN: Skin intact. Skin is warm and dry. Skin color is within normal limits. --13:50 Juan Manuel Reza R.N. NURSING PROGRESS NOTES The initial plan of care for this patient includes an assessment with efforts to address patient positioning, appropriate ambient lighting and comfortable environmental temperature; impairment of the neurological system. Pulse oximeter and NIBP monitor placed on patient. Patient gowned. Reassurance given. Call light placed in reach. Side rails up x 1. Bed placed in lowest position. Brakes of bed on. --13:51 Juan Manuel Reza R.N. DISPOSITION / DISCHARGE Departure time: 15:00 Feb 10 2017. Condition at departure: unchanged and stable. The patient left the Emergency Department; (pt left due to long wait time to be evaluated by mental health. Pt states Xiomara from [facility] will madi her back and let her know when to come back to ED to be evaluated for inpatient treatment. Pt stated she will return tonight for evaluation.). The patient appears to be alert and oriented x4. She notified the ED staff prior to leaving the department. She left the Emergency Department ambulatory and via private vehicle. --15:02 Yudelka Liang R.N. Locked/Released at 02/10/2017 15:03 by Yudelka Liang R.N.
--- NOTE | 2017-02-10 15:38 | ED MAR SUMMARY ---
..... Medication Administration Record [facility] [address] [place], [place] [id number] Patient: ROSALVA BROOKS Visit ID: [id number] 51y, F Weight: 63.5 kg Height/Length: 67 in BMI: 21.9 ALLERGIES: No Known Drug Allergy
--- NOTE | 2017-02-10 15:38 | ED MED RECONCILIATION SUMMARY ---
Patient: ROSALVA BROOKS Medication Reconciliation Report [facility] VisitID: [id number] [address] [place] [address] 51y, F Registration Date/Time: 02/10/2017 Weight: 63.5 kg Height/Length: 67 in. BMI: 21.9 ALLERGIES: No Known Drug Allergy The patient's Home Medications are listed below: THE FOLLOWING MEDICATIONS NEED TO BE RECONCILED: ClonazePAM Oral The source(s) of the original Home Medication information: Not obtained. The following Medications were given to the patient in the Emergency Department: None. The following Medications were prescribed to the patient: None.
--- NOTE | 2017-02-10 15:38 | ED DISCHARGE INSTRUCTIONS ---
Patient: ROSALVA BROOKS General Instructions [facility] VisitID: [id number] [address] [place] [address] 51y, F Registration Date/Time: 02/10/2017 Substance abuse problems: abuse of alcohol. Substance dependence problems: dependence on alcohol. ADDITIONAL INFORMATION Alcohol Withdrawal Alcohol withdrawal symptoms occur if you have been drinking steadily for at least several days, and your body gets used to the effect of alcohol. When you suddenly stop drinking (or, even just cut down your daily intake but continue to drink), you may develop alcohol withdrawal, also called the The usual symptoms last 3-4 days and include nervousness, shakiness, nausea, sweating, sleeplessness. In severe cases hallucinations (seeing things that are not there) and seizures can occur. Home Care: You will need plenty of rest and fluids over the next several days. Eat regular meals. Of course, do not drink any more alcohol. During this time, it is best that you stay with family or friends who can help and support you. You can also admit yourself to a residential detox program. Do not drive until all symptoms are gone and you are feeling better. If you were given sedative medication to reduce your symptoms, do not take it more often than prescribed and never take it with alcohol. Follow Up: Once you have gone through the withdrawal symptoms, you have fought half of the diaz. To avoid the risk of returning to your previous drinking pattern, it is essential that you get follow-up support and treatment. Alcoholics Anonymous offers support through a self-help fellowship. There are no dues or fees. See the Yellow Pages and call for time and place of meetings. www.aa.org Al-Anon offers support to families of alcohol users. 831.670.5054 www.al-anon.org National [place] On Alcoholism And Drug Dependence 898-026-1817 www.ncadd.org Residential alcohol detox programs are available. Check the Yellow Pages under Drug Abuse & Treatment Centers. Get Prompt Medical Attention if any of the following occur: Severe shakiness Hallucinations Seizure Fever over 100.5 F (38.0 C) oral Headache, confusion, extreme drowsiness, inability to awaken Increasing upper abdominal pain Repeated vomiting or vomiting blood You have been given the following additional information: Alcohol Withdrawal (Electronically signed by Emma Hunt P.A.-C 02/10/2017 15:38)
--- NOTE | 2017-02-10 15:38 | ED MAR SUMMARY ---
..... Medication Administration Record [facility] [address], [place] [id number] Patient: ROSALVA BROOKS Visit ID: [id number] 51y, F Weight: 63.5 kg Height/Length: 67 in BMI: 21.9 ALLERGIES: No Known Drug Allergy
--- NOTE | 2017-02-10 15:38 | ED DISCHARGE INSTRUCTIONS ---
Patient: ROSALVA BROOKS General Instructions [facility] VisitID: [id number] [address] [place] [address] 51y, F Registration Date/Time: 02/10/2017 Substance abuse problems: abuse of alcohol. Substance dependence problems: dependence on alcohol. ADDITIONAL INFORMATION Alcohol Withdrawal Alcohol withdrawal symptoms occur if you have been drinking steadily for at least several days, and your body gets used to the effect of alcohol. When you suddenly stop drinking (or, even just cut down your daily intake but continue to drink), you may develop alcohol withdrawal, also called the The usual symptoms last 3-4 days and include nervousness, shakiness, nausea, sweating, sleeplessness. In severe cases hallucinations (seeing things that are not there) and seizures can occur. Home Care: You will need plenty of rest and fluids over the next several days. Eat regular meals. Of course, do not drink any more alcohol. During this time, it is best that you stay with family or friends who can help and support you. You can also admit yourself to a residential detox program. Do not drive until all symptoms are gone and you are feeling better. If you were given sedative medication to reduce your symptoms, do not take it more often than prescribed and never take it with alcohol. Follow Up: Once you have gone through the withdrawal symptoms, you have fought half of the diaz. To avoid the risk of returning to your previous drinking pattern, it is essential that you get follow-up support and treatment. Alcoholics Anonymous offers support through a self-help fellowship. There are no dues or fees. See the Yellow Pages and call for time and place of meetings. www.aa.org Al-Anon offers support to families of alcohol users. 978.208.8670 www.al-anon.org National [place] On Alcoholism And Drug Dependence 339-959-5132 www.ncadd.org Residential alcohol detox programs are available. Check the Yellow Pages under Drug Abuse & Treatment Centers. Get Prompt Medical Attention if any of the following occur: Severe shakiness Hallucinations Seizure Fever over 100.5 F (38.0 C) oral Headache, confusion, extreme drowsiness, inability to awaken Increasing upper abdominal pain Repeated vomiting or vomiting blood You have been given the following additional information: Alcohol Withdrawal (Electronically signed by Emma Hunt P.A.-C 02/10/2017 15:38)
--- NOTE | 2017-02-10 15:38 | ED MED RECONCILIATION SUMMARY ---
Patient: ROSALVA BROOKS Medication Reconciliation Report [facility] VisitID: [id number] [address] [place] [address] 51y, F Registration Date/Time: 02/10/2017 Weight: 63.5 kg Height/Length: 67 in. BMI: 21.9 ALLERGIES: No Known Drug Allergy The patient's Home Medications are listed below: THE FOLLOWING MEDICATIONS NEED TO BE RECONCILED: ClonazePAM Oral The source(s) of the original Home Medication information: Not obtained. The following Medications were given to the patient in the Emergency Department: None. The following Medications were prescribed to the patient: None.
== END 2017-02-10 15:00 | disposition home or self-care (01) ==
LOC: ED SRH 13:00
DX: F10.20 Alcohol dependence, uncomplicated (principal); Z01.818 Encounter for other preprocedural examination

== ENCOUNTER 2017-02-10 22:10 | Emergency (ER) | payer OTHER ==
--- NOTE | 2017-02-11 03:45 | ED ORDER SUMMARY ---
..... Patient: ROSALVA BROOKS OrderSheet [facility] VisitID: [id number] [address] [place] [address] 51y, F Registration Date/Time: 02/10/2017 ORDER SHEET Weight: 63.5 kg (stated) Allergies: No Known Drug Allergy GENERAL ORDERS: CBC w Diff Urgent (23:14 02/10/2017 Rosalino Wilhelm) (23:29 Ted R.N.) CMP Urgent (23:14 02/10/2017 Rosalino Wilhelm) (23:29 Ted R.N.) UA-Culture if indicated Urgent (23:14 02/10/2017 Rosalino Wilhelm) (23:29 Ted De La Rosa.N.) Urine Urgent (23:14 02/10/2017 Rosalino Wilhelm) (23:29 Ted De La Rosa.N.) Urine Drug Screen Urgent (23:02/10/2017 Rosalino Wilhelm) (23:29 Ted R.N.) Ethyl Alcohol Urgent (23:14 02/10/2017 Rosalino Wilhelm) (23:29 Ted R.N.) MEDICATION ORDERS: Diazepam PO 5 mg (HIGH ALERT MEDICATION, NOW) (03:43 02/11/2017 Rosalino Wilhelm) (3:47 Aron R.N.) IV FLUIDS: ORDER SHEET NOTES: [Electronically signed by Bert Roy Dr. (03:48 02/11/2017)] [Electronically signed by Mayi Cooper R.N. (04:19 02/11/2017)] [Electronically signed by Mayi Cooper R.N. (04:20 02/11/2017)] [Electronically locked/signed by Mayi Cooper R.N. (04:19 02/11/2017)]
--- NOTE | 2017-02-11 03:45 | ED NURSING NOTES ---
Clinical Report - Nurses [facility] [address] [place] [address] 02/10/2017 22:11 Patient: ROSALVA BROOKS TRIAGE Triage time 22:36. Acuity: LEVEL 3. --22:46 Mayi Cooper R.N. 22:36 02/10/17. BP: 135/87 taken on the left arm, while lying. HR: 101 (regular and tachycardic). RR: 16. O2 saturation: 98% on room air. Temp: 98.1 F (oral). Pain level now: 0/10. --22:46 Mayi Cooper R.N. Chief Complaint: DEPRESSION. --04:19 Mayi Cooper R.N. Weight: 63.5 kg stated. Height/Length: 67 inches Per Patient. BMI: 21.9. --22:41 Mayi Cooper R.N. Medications ClonazePAM Oral. --22:43 Mayi Cooper R.N. Citalopram Hydrobromide Oral (Tablet 20 mg) 1 tablet, daily. --22:44 Mayi Cooper R.N. Allergies No Known Drug Allergy. --22:43 Mayi Cooper R.N. History Arrived by private vehicle. Historian: patient and family. Accompanied by family and brother. ( seen yesterday and this morning for evaluation for alcohol detox program, spoke to Letty with [facility] and told to come back tonight after 2200). PAST MEDICAL HX: The patient is post-menopausal. SOCIAL HX: Never smoker. Heavy alcohol use; consumes beer daily. Last drink was 2 hours ago. No drug use. No infectious disease exposure. ABUSE ASSESSMENT: No report of abuse. SELF HARM ASSESSMENT: A self harm assessment was performed. The patient answered "no" to the question "Have you recently felt down, depressed, or hopeless?", "Have you noticed less interest or pleasure in doing things?", "Do you have thoughts of harming or killing yourself?", "Are you here because you tried to hurt yourself?", "Have you ever tried to hurt yourself before today?", "Have you recently had thoughts about harming or killing others?" and "Do you have any dangerous items in your possession?". FALL RISK ASSESSMENT: Fall risk assessment completed. No fall risk identified. NUTRITIONAL RISK ASSESSMENT: The nutritional risk assessment revealed no deficiencies. FUNCTIONAL ASSESSMENT: Functional assessment: no impairments noted. LEARNING NEEDS ASSESSMENT: The learning needs assessment revealed no barriers. SKIN INTEGRITY ASSESSMENT: Skin integrity risk assessment completed. No skin integrity risk identified. --22:46 Mayi Cooper R.N. ( pt reports drinking 1 beer a couple of hours ago). --22:47 Mayi Cooper R.N. PROBLEMS: Lifestyle / Substance Problems. Mental Illness. Suicidal Ideation. Alcohol Withdrawal. Hypertension. Contusion. Hypernatremia. Alcohol Intoxication. Alcoholism. Depression. Anxiety Reaction. --22:45 Mayi Cooper R.N. ADDITIONAL SURGERIES: no known surgeries. Interventions ID band on patient. --22:46 Mayi Cooper R.N. PHYSICAL ASSESSMENT Ambulatory to room. GENERAL / NEURO / PSYCH: Alert. Oriented X 4. Appears in no acute distress. Speech within normal limits. Affect appears normal. Patient appears calm and cooperative. Patient appears well-nourished and neat and clean. RESPIRATORY: Respirations not labored. CVS: Normal heart rate and rhythm. GI / : Abdomen soft and nontender. Bowel sounds within normal limits. SKIN: Skin intact. Skin is warm and dry. Skin color is within normal limits. --22:46 Mayi Cooper R.N. NURSING PROGRESS NOTES Two patient identifiers checked. Call light placed in reach of patient. Side rails up x 1. Bed placed in lowest position. Brakes of bed on. --22:47 Mayi Cooper R.N. Patient ready for evaluation- chart flagged. --22:47 Mayi Cooper R.N. Patient ID band checked for patient name: patient confirmed. Blood samples drawn from the right antecubital space with 23g butterfly by nurse per protocol ; labeled in presence of the patient and sent to lab: rainbow set. --23:10 Mayi Cooper R.N. ( [email or web address] is [email or web address]). --23:53 Marlee Morales 03:47 02/11/2017 Diazepam (Diazepam) PO 5 mg given. Allergies verified, confirmed 5 rights and sedative warning given to the patient. --03:47 Ne Latham DISPOSITION / DISCHARGE Condition at departure: improved and stable. No learning barriers present. Discharge instructions provided and reviewed with the patient. Reviewed medication(s) side effects, precautions, dosing and course information. Prescription(s) given to the patient. Patient verbalized understanding. Written instructions provided in Hebrew. The patient was discharged home and accompanied by family. She left the Emergency Department ambulatory and via private vehicle. Family member driving. --04:18 Mayi Cooper R.N. 04:17 02/11/17. BP: 151/80 taken on the left arm, while lying. HR: 74 (regular and normal rate). RR: 18. O2 saturation: 100% on room air. Temp: deferred. Pain level now: 11/01. --04:18 Mayi Cooper R.N. Departure time: 04:18. --04:19 Mayi Cooper R.N. Locked/Released at 02/11/2017 4:20 by Mayi Cooper R.N.
--- NOTE | 2017-02-11 03:45 | ED CLINICAL REPORT ---
Clinical Report - Physicians/Mid Levels [facility] [address] [place] [address] 02/10/2017 22:11 Patient: ROSALVA BROOKS Time Seen: 23:01; initial patient contact. Arrived- By private vehicle. Historian- patient. RETURN VISIT: recently seen in this ED by me and another ED physician. Seen now for the same problem as before (3rd visit in 2 days). HISTORY OF PRESENT ILLNESS Chief Complaint: Wants to stop drinking. Wants to enter detox program. Symptoms started today. Substances abused: Alcohol. (about 3 hours ago). No nausea, vomiting, diarrhea, abdominal pain or tremors. No seizure, agitation, delusions, hallucinations or suicidal thoughts. Not confused or paranoid. Has not been depressed. The symptoms are described as moderate. No injuries noted. Similar symptoms previously: Many times. Recent medical care: The patient was seen recently at this facility in the emergency department. REVIEW OF SYSTEMS No headache, dizziness, chest pain or palpitations. All systems otherwise negative, except as recorded above. PAST HISTORY Lifestyle / Substance Problems. Mental Illness. Suicidal Ideation. Alcohol Withdrawal. Hypertension. Contusion. Hypernatremia. Alcohol Intoxication. Alcoholism. Depression. Anxiety Reaction. -. SOCIAL HISTORY Never smoker. Alcohol use. Patient is a longstanding alcoholic. Not under the influence in E.D. No drug use. Has social support. Has place to stay. ADDITIONAL NOTES The nursing notes have been reviewed. PHYSICAL EXAM Vital Signs: 02/10/2017 22:36 BP: 135/87. HR: 101. RR: 16. O2 saturation: 98%. Temp: 98.1 F. Pain level now: 0/10. Have been reviewed. Blood pressure normal. Tachycardic. Respiratory rate normal. Temperature normal. Oxygen saturation normal. Appearance: Alert. Oriented X3. No acute distress. ENT: Normal ENT inspection. Moist mucous membranes. Neck: Normal inspection. CVS: Normal heart rate and rhythm. Heart sounds normal. Respiratory: No respiratory distress. Breath sounds normal. Abdomen: Soft and nontender. No organomegaly. The bowel sounds are not abnormal. Skin: Skin warm and dry. Normal skin color. Extremities: No lower extremity edema. Neuro: Alert. Oriented X 3. Mood/affect normal. Speech normal. LABS, X-RAYS, AND EKG Laboratory Tests: UA-Culture if indicated: (NARCISA: 02/10/2017 22:40) ( [facility] 02/10/2017 23:40) Final results Test Result Flag Units (Reference) URINE COLOR YELLOW URINE APPEARANCE CLEAR URINE GLUCOSE NEGATIVE (NEGATIVE) URINE BILIRUBIN NEGATIVE (NEGATIVE) URINE KETONE NEGATIVE (NEGATIVE) URINE SPECIFIC GRAVITY <= 1.005 L (1.010-1.030) URINE PH 6.0 (5.0-8.0) URINE PROTEIN NEGATIVE (NEGATIVE) URINE UROBILINOGEN 0.2 EU/dL (0.2-1.0) URINE NITRITE NEGATIVE (NEGATIVE) URINE BLOOD NEGATIVE (NEGATIVE) URINE LEUK ESTERASE NEGATIVE (NEGATIVE) URINE RBC NONE SEEN rbc/hpf (0-1) URINE WBC NONE SEEN wbc/hpf (0-1) URINE EPITHELIAL CELLS 0-1 EPI/hpf (0-5) URINE BACTERIA NONE SEEN (NONE SEEN) URINE COMMENT CULT NOT INDICATED URINE CULTURES ARE SET-UP BASED ON THE FOLLOWING CRITERIA:POSITIVE NITRITEPOSITIVE LEUKOCYTE ESTERASEGREATER THAN 10 WHITE BLOOD CELLSMODERATE (2+) OR GREATER BACTERIA Urine: (NARCISA: 02/10/2017 22:40) ( [facility] 02/10/2017 23:26) Final results Test Result Flag Units (Reference) URINE NEGATIVE CBC w Diff: (NARCISA: 02/10/2017 23:04) ( [facility] 02/10/2017 23:22) Final results Test Result Flag Units (Reference) WHITE BLOOD COUNT 5.5 K/uL (4.5-11.5) RED BLOOD COUNT 3.56 L M/uL (4.00-5.20) HEMOGLOBIN 11.3 L gm/dL (12.0-16.0) HEMATOCRIT 32.9 L % (36.0-46.0) MEAN CELL VOLUME 92 fL (80-100) MEAN CORPUSCULAR HGB 32 pg (26-34) MEAN CORPUSCULAR HGB CONC 34 g/dL (31-37) RED CELL DISTRIBUTION WIDTH 12.5 % (11.6-14.8) PLATELET COUNT 166 K/uL (150-400) LYMPH % 43.5 H % (25-40) MONO % 6.7 % (3-14) GRANULOCYTE % 49.8 L (53-90) Urine Drug Screen: (NARCISA: 02/10/2017 22:40) ( [facility] 02/10/[facility] 23:34) Final results Test Result Flag Units (Reference) AMPHETAMINE/METHAMPHETAMINE NEGATIVE (NEGATIVE) BARBITURATE NEGATIVE (NEGATIVE) BENZODIAZEPINE NEGATIVE (NEGATIVE) CANNABINOID NEGATIVE (NEGATIVE) COCAINE NEGATIVE (NEGATIVE) ECSTASY NEGATIVE (NEGATIVE) METHADONE NEGATIVE (NEGATIVE) OPIATE NEGATIVE (NEGATIVE) The urine drug screen is a qualitative screening test fordrug overdose and abuse. All screen results should beconsidered as presumptive.Drugs screened for are as follows:BenzodiazepinesCocaineAmphetamines/MetamphetaminesTHC (Tetrahydrocannabinol)OpiatesBarbituratesEcstasyMethadonePositive results are unconfirmed. For confirmation, notifythe lab for the specimen to be sent to the reference lab.All confirmations must be performed by a differentmethodology.The ingestion of natural herbal and plant productscontaining Ephedra/Ephedra metabolites can produce in urineone or more substances capable of cross reacting withamphetamine/methamphetamine immunoassays. These testsprovide a preliminary result only. A more specificalternative chemical method must be used to obtain aconfirmed analytical result. CMP: (NARCISA: 02/10/2017 23:04) ( [facility] 02/10[facility] 23:47) Final results Test Result Flag Units (Reference) GLUCOSE 115 H mg/dL (70-110) BUN 6 L mg/dL (7-18) CREATININE 0.6 mg/dL (0.6-1.3) Estimated GFR >60 mL/min Estimated GFR- >60 mL/min Note: Persistent reduction over 3 months in eGFR<60 mL/min/1.73 m2 defines CKD. Patients with eGFR values>=60 mL/min/1.73 m2 may also have CKD if evidence ofpersistent proteinuria. Additional information may be foundat www.kidney.org. SODIUM 132 L mmol/L (136-145) POTASSIUM 3.1 # L mmol/L (3.5-5.1) CHLORIDE 92 L mmol/L (98-107) CARBON DIOXIDE 27 mmol/L (21-32) CALCIUM 8.2 L mg/dL (8.5-10.1) TOTAL PROTEIN 7.2 g/dL (6.4-8.2) ALBUMIN 3.8 g/dL (3.3-5.0) BILIRUBIN, TOTAL 1.9 H mg/dL (0.0-1.0) ALKALINE PHOSPHATASE 81 U/L (46-116) AST (SGOT) 36 U/L (15-37) ALT (SGPT) 32 U/L (12-78) ETHYL ALCOHOL 109 H mg/dL (3-10) . PROGRESS AND PROCEDURES Course of Care: REHANA velez done, due to her not being suicidal, Medicade would not authorize inpt Tx. Will start Antebuse and Benzo, I cautioned about no EtOH on this, and to f/u w/in 2 days w/ PCP. Disposition: Discharged home in good and improved condition. Condition: good. CLINICAL IMPRESSION Chronic substance abuse- alcohol with intoxication and drug induced mood disorder. INSTRUCTIONS No alcohol. Seek medical help to quit drinking. Your Current Medications: STOP TAKING THE FOLLOWING MEDICATIONS: ClonazePAM Oral. CONTINUE TAKING THE FOLLOWING MEDICATIONS: Citalopram Hydrobromide Oral : Tablet 20 mg, 1 tablet daily. Prescription Medications: Antabuse 250 mg: take 1 tablet orally every day. Dispense fifteen (15). No refill. Substitution is permissible. Chlordiazepoxide 25 mg: take 1 orally every 6 hours. Dispense twenty (20). No refill. Follow-up: Follow up with your doctor in about two days. Call for an appointment. Screening today revealed the patient's blood pressure to be in the pre-hypertensive range. The patient should follow up with a primary care provider for blood pressure management. (Electronically signed by Bert Roy Dr. 02/11/2017 3:48)
--- NOTE | 2017-02-11 03:45 | ED ORDER SUMMARY ---
..... Patient: ROSALVA BROOKS OrderSheet [facility] VisitID: [id number] [address] [place] [address] 51y, F Registration Date/Time: 02/10/2017 ORDER SHEET Weight: 63.5 kg (stated) Allergies: No Known Drug Allergy GENERAL ORDERS: CBC w Diff Urgent (23:14 02/10/2017 Rosalino Wilhelm) (23:29 Ted R.N.) CMP Urgent (23:14 02/10/2017 Rosalino Wilhelm) (23:29 Ted R.N.) UA-Culture if indicated Urgent (23:14 02/10/2017 Rosalino Wilhelm) (23:29 Ted De La Rosa.N.) Urine Urgent (23:14 02/10/2017 Rosalino Wilhelm) (23:29 Ted De La Rosa.N.) Urine Drug Screen Urgent (23:02/10/2017 Rosalino Wilhelm) (23:29 Ted R.N.) Ethyl Alcohol Urgent (23:14 02/10/2017 Rosalino Wilhelm) (23:29 Ted R.N.) MEDICATION ORDERS: Diazepam PO 5 mg (HIGH ALERT MEDICATION, NOW) (03:43 02/11/2017 Rosalino Wilhelm) (3:47 Aron R.N.) IV FLUIDS: ORDER SHEET NOTES: [Electronically signed by Bert Roy Dr. (03:48 02/11/2017)] [Electronically signed by Mayi Cooper R.N. (04:19 02/11/2017)] [Electronically signed by Mayi Cooper R.N. (04:20 02/11/2017)] [Electronically locked/signed by Mayi Cooper R.N. (04:19 02/11/2017)]
--- NOTE | 2017-02-11 03:45 | ED CLINICAL REPORT ---
Clinical Report - Physicians/Mid Levels [facility] [address] [place] [address] 02/10/2017 22:11 Patient: ROSALVA BROOKS Time Seen: 23:01; initial patient contact. Arrived- By private vehicle. Historian- patient. RETURN VISIT: recently seen in this ED by me and another ED physician. Seen now for the same problem as before (3rd visit in 2 days). HISTORY OF PRESENT ILLNESS Chief Complaint: Wants to stop drinking. Wants to enter detox program. Symptoms started today. Substances abused: Alcohol. (about 3 hours ago). No nausea, vomiting, diarrhea, abdominal pain or tremors. No seizure, agitation, delusions, hallucinations or suicidal thoughts. Not confused or paranoid. Has not been depressed. The symptoms are described as moderate. No injuries noted. Similar symptoms previously: Many times. Recent medical care: The patient was seen recently at this facility in the emergency department. REVIEW OF SYSTEMS No headache, dizziness, chest pain or palpitations. All systems otherwise negative, except as recorded above. PAST HISTORY Lifestyle / Substance Problems. Mental Illness. Suicidal Ideation. Alcohol Withdrawal. Hypertension. Contusion. Hypernatremia. Alcohol Intoxication. Alcoholism. Depression. Anxiety Reaction. -. SOCIAL HISTORY Never smoker. Alcohol use. Patient is a longstanding alcoholic. Not under the influence in E.D. No drug use. Has social support. Has place to stay. ADDITIONAL NOTES The nursing notes have been reviewed. PHYSICAL EXAM Vital Signs: 02/10/2017 22:36 BP: 135/87. HR: 101. RR: 16. O2 saturation: 98%. Temp: 98.1 F. Pain level now: 0/10. Have been reviewed. Blood pressure normal. Tachycardic. Respiratory rate normal. Temperature normal. Oxygen saturation normal. Appearance: Alert. Oriented X3. No acute distress. ENT: Normal ENT inspection. Moist mucous membranes. Neck: Normal inspection. CVS: Normal heart rate and rhythm. Heart sounds normal. Respiratory: No respiratory distress. Breath sounds normal. Abdomen: Soft and nontender. No organomegaly. The bowel sounds are not abnormal. Skin: Skin warm and dry. Normal skin color. Extremities: No lower extremity edema. Neuro: Alert. Oriented X 3. Mood/affect normal. Speech normal. LABS, X-RAYS, AND EKG Laboratory Tests: UA-Culture if indicated: (NARCISA: 02/10/2017 22:40) ( [facility] 02/10/2017 23:40) Final results Test Result Flag Units (Reference) URINE COLOR YELLOW URINE APPEARANCE CLEAR URINE GLUCOSE NEGATIVE (NEGATIVE) URINE BILIRUBIN NEGATIVE (NEGATIVE) URINE KETONE NEGATIVE (NEGATIVE) URINE SPECIFIC GRAVITY <= 1.005 L (1.010-1.030) URINE PH 6.0 (5.0-8.0) URINE PROTEIN NEGATIVE (NEGATIVE) URINE UROBILINOGEN 0.2 EU/dL (0.2-1.0) URINE NITRITE NEGATIVE (NEGATIVE) URINE BLOOD NEGATIVE (NEGATIVE) URINE LEUK ESTERASE NEGATIVE (NEGATIVE) URINE RBC NONE SEEN rbc/hpf (0-1) URINE WBC NONE SEEN wbc/hpf (0-1) URINE EPITHELIAL CELLS 0-1 EPI/hpf (0-5) URINE BACTERIA NONE SEEN (NONE SEEN) URINE COMMENT CULT NOT INDICATED URINE CULTURES ARE SET-UP BASED ON THE FOLLOWING CRITERIA:POSITIVE NITRITEPOSITIVE LEUKOCYTE ESTERASEGREATER THAN 10 WHITE BLOOD CELLSMODERATE (2+) OR GREATER BACTERIA Urine: (NARCISA: 02/10/2017 22:40) ( [facility] 02/10/2017 23:26) Final results Test Result Flag Units (Reference) URINE NEGATIVE CBC w Diff: (NARCISA: 02/10/2017 23:04) ( [facility] 02/10/2017 23:22) Final results Test Result Flag Units (Reference) WHITE BLOOD COUNT 5.5 K/uL (4.5-11.5) RED BLOOD COUNT 3.56 L M/uL (4.00-5.20) HEMOGLOBIN 11.3 L gm/dL (12.0-16.0) HEMATOCRIT 32.9 L % (36.0-46.0) MEAN CELL VOLUME 92 fL (80-100) MEAN CORPUSCULAR HGB 32 pg (26-34) MEAN CORPUSCULAR HGB CONC 34 g/dL (31-37) RED CELL DISTRIBUTION WIDTH 12.5 % (11.6-14.8) PLATELET COUNT 166 K/uL (150-400) LYMPH % 43.5 H % (25-40) MONO % 6.7 % (3-14) GRANULOCYTE % 49.8 L (53-90) Urine Drug Screen: (NARCISA: 02/10/2017 22:40) ( [facility] 02/10/2017 23:34) Final results Test Result Flag Units (Reference) AMPHETAMINE/METHAMPHETAMINE NEGATIVE (NEGATIVE) BARBITURATE NEGATIVE (NEGATIVE) BENZODIAZEPINE NEGATIVE (NEGATIVE) CANNABINOID NEGATIVE (NEGATIVE) COCAINE NEGATIVE (NEGATIVE) ECSTASY NEGATIVE (NEGATIVE) METHADONE NEGATIVE (NEGATIVE) OPIATE NEGATIVE (NEGATIVE) The urine drug screen is a qualitative screening test fordrug overdose and abuse. All screen results should beconsidered as presumptive.Drugs screened for are as follows:BenzodiazepinesCocaineAmphetamines/MetamphetaminesTHC (Tetrahydrocannabinol)OpiatesBarbituratesEcstasyMethadonePositive results are unconfirmed. For confirmation, notifythe lab for the specimen to be sent to the reference lab.All confirmations must be performed by a differentmethodology.The ingestion of natural herbal and plant productscontaining Ephedra/Ephedra metabolites can produce in urineone or more substances capable of cross reacting withamphetamine/methamphetamine immunoassays. These testsprovide a preliminary result only. A more specificalternative chemical method must be used to obtain aconfirmed analytical result. CMP: (NARCISA: 02/10/2017 23:04) ( [facility] 02/10[facility] 23:47) Final results Test Result Flag Units (Reference) GLUCOSE 115 H mg/dL (70-110) BUN 6 L mg/dL (7-18) CREATININE 0.6 mg/dL (0.6-1.3) Estimated GFR >60 mL/min Estimated GFR- >60 mL/min Note: Persistent reduction over 3 months in eGFR<60 mL/min/1.73 m2 defines CKD. Patients with eGFR values>=60 mL/min/1.73 m2 may also have CKD if evidence ofpersistent proteinuria. Additional information may be foundat www.kidney.org. SODIUM 132 L mmol/L (136-145) POTASSIUM 3.1 # L mmol/L (3.5-5.1) CHLORIDE 92 L mmol/L (98-107) CARBON DIOXIDE 27 mmol/L (21-32) CALCIUM 8.2 L mg/dL (8.5-10.1) TOTAL PROTEIN 7.2 g/dL (6.4-8.2) ALBUMIN 3.8 g/dL (3.3-5.0) BILIRUBIN, TOTAL 1.9 H mg/dL (0.0-1.0) ALKALINE PHOSPHATASE 81 U/L (46-116) AST (SGOT) 36 U/L (15-37) ALT (SGPT) 32 U/L (12-78) ETHYL ALCOHOL 109 H mg/dL (3-10) . PROGRESS AND PROCEDURES Course of Care: REHANA velez done, due to her not being suicidal, Medicade would not authorize inpt Tx. Will start Antebuse and Benzo, I cautioned about no EtOH on this, and to f/u w/in 2 days w/ PCP. Disposition: Discharged home in good and improved condition. Condition: good. CLINICAL IMPRESSION Chronic substance abuse- alcohol with intoxication and drug induced mood disorder. INSTRUCTIONS No alcohol. Seek medical help to quit drinking. Your Current Medications: STOP TAKING THE FOLLOWING MEDICATIONS: ClonazePAM Oral. CONTINUE TAKING THE FOLLOWING MEDICATIONS: Citalopram Hydrobromide Oral : Tablet 20 mg, 1 tablet daily. Prescription Medications: Antabuse 250 mg: take 1 tablet orally every day. Dispense fifteen (15). No refill. Substitution is permissible. Chlordiazepoxide 25 mg: take 1 orally every 6 hours. Dispense twenty (20). No refill. Follow-up: Follow up with your doctor in about two days. Call for an appointment. Screening today revealed the patient's blood pressure to be in the pre-hypertensive range. The patient should follow up with a primary care provider for blood pressure management. (Electronically signed by Bert Roy Dr. 02/11/2017 3:48)
--- NOTE | 2017-02-11 04:21 | ED MAR SUMMARY ---
..... Medication Administration Record [facility] [address] [place] [address] Patient: ROSALVA BROOKS Visit ID: [id number] 51y, F Weight: 63.5 kg Height/Length: 67 in BMI: 21.9 ALLERGIES: No Known Drug Allergy Given 03:47 02/11/2017 Ne [place] Medication Administered: DIAZEPAM [PO] (DIAZEPAM), Dose: 5 mg PO. Medication Ordered: Diazepam PO 5 mg (HIGH ALERT MEDICATION, NOW).
--- NOTE | 2017-02-11 04:21 | ED MED RECONCILIATION SUMMARY ---
Patient: ROSALVA BROOKS Medication Reconciliation Report [facility] VisitID: [id number] [address] [place] [address] 51y, F Registration Date/Time: 02/10/2017 Weight: 63.5 kg Height/Length: 67 in. BMI: 21.9 ALLERGIES: No Known Drug Allergy The patient's Home Medications are listed below: STOP TAKING THE FOLLOWING MEDICATIONS: ClonazePAM Oral CONTINUE TAKING THE FOLLOWING MEDICATIONS: Citalopram Hydrobromide Oral (20 mg) 1 tablet, daily The source(s) of the original Home Medication information: Not obtained. The following Medications were given to the patient in the Emergency Department: Diazepam [PO] PO 5 mg, administered: 02/11/2017 3:47:00 AM The following Medications were prescribed to the patient: Antabuse 250 mg: take 1 tablet orally every day. Dispense fifteen (15). No refill. Substitution is permissible. -- Bert Roy Dr. Chlordiazepoxide 25 mg: take 1 orally every 6 hours. Dispense twenty (20). No refill. -- Bert Roy Dr.
--- NOTE | 2017-02-11 04:21 | ED DISCHARGE INSTRUCTIONS ---
Patient: ROSALVA BROOKS General Instructions [facility] VisitID: [id number] [place] [address] 51y, F Registration Date/Time: 02/10/2017 Chronic substance abuse- alcohol with intoxication and drug induced mood disorder. INSTRUCTIONS No alcohol. Seek medical help to quit drinking. Your Current Medications: STOP TAKING THE FOLLOWING MEDICATIONS: ClonazePAM Oral. CONTINUE TAKING THE FOLLOWING MEDICATIONS: Citalopram Hydrobromide Oral : Tablet 20 mg, 1 tablet daily. Prescription Medications: Antabuse 250 mg: take 1 tablet orally every day. Dispense fifteen (15). No refill. Substitution is permissible. Chlordiazepoxide 25 mg: take 1 orally every 6 hours. Dispense twenty (20). No refill. Follow-up: Follow up with your doctor in about two days. Call for an appointment. Screening today revealed the patient's blood pressure to be in the pre-hypertensive range. The patient should follow up with a primary care provider for blood pressure management. ADDITIONAL INFORMATION Alcohol Withdrawal Alcohol withdrawal symptoms occur if you have been drinking steadily for at least several days, and your body gets used to the effect of alcohol. When you suddenly stop drinking (or, even just cut down your daily intake but continue to drink), you may develop alcohol withdrawal, also called the The usual symptoms last 3-4 days and include nervousness, shakiness, nausea, sweating, sleeplessness. In severe cases hallucinations (seeing things that are not there) and seizures can occur. Home Care: You will need plenty of rest and fluids over the next several days. Eat regular meals. Of course, do not drink any more alcohol. During this time, it is best that you stay with family or friends who can help and support you. You can also admit yourself to a residential detox program. Do not drive until all symptoms are gone and you are feeling better. If you were given sedative medication to reduce your symptoms, do not take it more often than prescribed and never take it with alcohol. Follow Up: Once you have gone through the withdrawal symptoms, you have fought half of the diaz. To avoid the risk of returning to your previous drinking pattern, it is essential that you get follow-up support and treatment. Alcoholics Anonymous offers support through a self-help fellowship. There are no dues or fees. See the Yellow Pages and call for time and place of meetings. www.aa.org Debi offers support to families of alcohol users. 738.319.1287 www.al-yris.org National [place] On Alcoholism And Drug Dependence 560-590-7538 www.ncadd.org Residential alcohol detox programs are available. Check the Yellow Pages under Drug Abuse & Treatment Centers. Get Prompt Medical Attention if any of the following occur: Severe shakiness Hallucinations Seizure Fever over 100.5 F (38.0 C) oral Headache, confusion, extreme drowsiness, inability to awaken Increasing upper abdominal pain Repeated vomiting or vomiting blood Chlordiazepoxide Hydrochloride Oral capsule What is this medicine? CHLORDIAZEPOXIDE (klor dye az e POX ness) is a benzodiazepine. It is used to treat anxiety and alcohol withdrawal. How should I use this medicine? Take this medicine by mouth with a glass of water. Follow the directions on the prescription label. If this medicine upsets your stomach, take it with food or milk. Take your doses at regular intervals. Do not take your medicine more often than directed. If you have been taking this medicine regularly for some time, do not suddenly stop taking it. You must gradually reduce the dose or you may get severe side effects. Ask your doctor or health animal care technician for advice. Even after you stop taking this medicine it can still affect your body for several days. Talk to your map clerk regarding the use of this medicine in children. Special care may be needed. While this drug may be prescribed for children as young as 6 years for selected conditions, precautions do apply. What side effects may I notice from receiving this medicine? Side effects that you should report to your doctor or health animal care technician as soon as possible: allergic reactions like skin rash, itching or hives, swelling of the face, lips, or tongue confusion, depression feeling faint or lightheaded, falls mood changes, excitability or aggressive behavior muscle cramps problems with balance, talking, walking restlessness tremors unusually weak or tired Side effects that usually do not require medical attention (report to your doctor or health animal care technician if they continue or are bothersome): change in sex drive or performance constipation drowsiness menstrual changes nausea, vomiting What may interact with this medicine? cimetidine medicines for anxiety or sleeping problems, like alprazolam, lorazepam, or triazolam medicines for depression, mental problems or psychiatric disturbances medicines for HIV infection or AIDS prescription pain medicines rifampin, rifapentine, or rifabutin some medicines for seizures like carbamazepine, phenobarbital, phenytoin, or primidone What if I miss a dose? If you miss a dose, take it as soon as you can. If it is almost time for your next dose, take only that dose. Do not take double or extra doses. Where should I keep my medicine? Keep out of the reach of children. This medicine can be abused. Keep your medicine in a safe place to protect it from theft. Do not share this medicine with anyone. Selling or giving away this medicine is dangerous and against the law. Store at room temperature between 15 and 30 degrees C (59 and 86 degrees F). Throw away any unused medicine after the expiration date. What should I tell my health care provider before I take this medicine? They need to know if you have any of these conditions: an alcohol or drug abuse problem kidney or liver disease suicidal thoughts an unusual or allergic reaction to chlordiazepoxide, other benzodiazepines, foods, dyes, or preservatives or trying to get breast-feeding What should I watch for while using this medicine? Visit your doctor or health animal care technician for regular checks on your progress. Your body can become dependent on this medicine. Ask your doctor or health animal care technician if you still need to take it. You may get drowsy or dizzy. Do not drive, use machinery, or do anything that needs mental alertness until you know how this medicine affects you. To reduce the risk of dizzy and fainting spells, do not stand or sit up quickly, especially if you are an older patient. Alcohol may increase dizziness and drowsiness. Avoid alcoholic drinks. Do not treat yourself for coughs, colds or allergies without asking your doctor or health animal care technician for advice. Some ingredients can increase possible side effects. You have been given the following additional information: Alcohol Withdrawal Chlordiazepoxide Hydrochloride Oral capsule (Electronically signed by Bert Roy Dr. 02/11/2017 3:48)
--- NOTE | 2017-02-11 04:21 | ED DISCHARGE INSTRUCTIONS ---
Patient: ROSALVA BROOKS General Instructions [facility] VisitID: [id number] [place] [address] 51y, F Registration Date/Time: 02/10/2017 Chronic substance abuse- alcohol with intoxication and drug induced mood disorder. INSTRUCTIONS No alcohol. Seek medical help to quit drinking. Your Current Medications: STOP TAKING THE FOLLOWING MEDICATIONS: ClonazePAM Oral. CONTINUE TAKING THE FOLLOWING MEDICATIONS: Citalopram Hydrobromide Oral : Tablet 20 mg, 1 tablet daily. Prescription Medications: Antabuse 250 mg: take 1 tablet orally every day. Dispense fifteen (15). No refill. Substitution is permissible. Chlordiazepoxide 25 mg: take 1 orally every 6 hours. Dispense twenty (20). No refill. Follow-up: Follow up with your doctor in about two days. Call for an appointment. Screening today revealed the patient's blood pressure to be in the pre-hypertensive range. The patient should follow up with a primary care provider for blood pressure management. ADDITIONAL INFORMATION Alcohol Withdrawal Alcohol withdrawal symptoms occur if you have been drinking steadily for at least several days, and your body gets used to the effect of alcohol. When you suddenly stop drinking (or, even just cut down your daily intake but continue to drink), you may develop alcohol withdrawal, also called the The usual symptoms last 3-4 days and include nervousness, shakiness, nausea, sweating, sleeplessness. In severe cases hallucinations (seeing things that are not there) and seizures can occur. Home Care: You will need plenty of rest and fluids over the next several days. Eat regular meals. Of course, do not drink any more alcohol. During this time, it is best that you stay with family or friends who can help and support you. You can also admit yourself to a residential detox program. Do not drive until all symptoms are gone and you are feeling better. If you were given sedative medication to reduce your symptoms, do not take it more often than prescribed and never take it with alcohol. Follow Up: Once you have gone through the withdrawal symptoms, you have fought half of the diaz. To avoid the risk of returning to your previous drinking pattern, it is essential that you get follow-up support and treatment. Alcoholics Anonymous offers support through a self-help fellowship. There are no dues or fees. See the Yellow Pages and call for time and place of meetings. www.aa.org Debi offers support to families of alcohol users. 215.640.3999 www.al-yris.org National [place] On Alcoholism And Drug Dependence 674-777-6025 www.ncadd.org Residential alcohol detox programs are available. Check the Yellow Pages under Drug Abuse & Treatment Centers. Get Prompt Medical Attention if any of the following occur: Severe shakiness Hallucinations Seizure Fever over 100.5 F (38.0 C) oral Headache, confusion, extreme drowsiness, inability to awaken Increasing upper abdominal pain Repeated vomiting or vomiting blood Chlordiazepoxide Hydrochloride Oral capsule What is this medicine? CHLORDIAZEPOXIDE (klor dye az e POX ness) is a benzodiazepine. It is used to treat anxiety and alcohol withdrawal. How should I use this medicine? Take this medicine by mouth with a glass of water. Follow the directions on the prescription label. If this medicine upsets your stomach, take it with food or milk. Take your doses at regular intervals. Do not take your medicine more often than directed. If you have been taking this medicine regularly for some time, do not suddenly stop taking it. You must gradually reduce the dose or you may get severe side effects. Ask your doctor or health child care specialist for advice. Even after you stop taking this medicine it can still affect your body for several days. Talk to your pulmonary disease specialist regarding the use of this medicine in children. Special care may be needed. While this drug may be prescribed for children as young as 6 years for selected conditions, precautions do apply. What side effects may I notice from receiving this medicine? Side effects that you should report to your doctor or health child care specialist as soon as possible: allergic reactions like skin rash, itching or hives, swelling of the face, lips, or tongue confusion, depression feeling faint or lightheaded, falls mood changes, excitability or aggressive behavior muscle cramps problems with balance, talking, walking restlessness tremors unusually weak or tired Side effects that usually do not require medical attention (report to your doctor or health child care specialist if they continue or are bothersome): change in sex drive or performance constipation drowsiness menstrual changes nausea, vomiting What may interact with this medicine? cimetidine medicines for anxiety or sleeping problems, like alprazolam, lorazepam, or triazolam medicines for depression, mental problems or psychiatric disturbances medicines for HIV infection or AIDS prescription pain medicines rifampin, rifapentine, or rifabutin some medicines for seizures like carbamazepine, phenobarbital, phenytoin, or primidone What if I miss a dose? If you miss a dose, take it as soon as you can. If it is almost time for your next dose, take only that dose. Do not take double or extra doses. Where should I keep my medicine? Keep out of the reach of children. This medicine can be abused. Keep your medicine in a safe place to protect it from theft. Do not share this medicine with anyone. Selling or giving away this medicine is dangerous and against the law. Store at room temperature between 15 and 30 degrees C (59 and 86 degrees F). Throw away any unused medicine after the expiration date. What should I tell my health care provider before I take this medicine? They need to know if you have any of these conditions: an alcohol or drug abuse problem kidney or liver disease suicidal thoughts an unusual or allergic reaction to chlordiazepoxide, other benzodiazepines, foods, dyes, or preservatives or trying to get breast-feeding What should I watch for while using this medicine? Visit your doctor or health child care specialist for regular checks on your progress. Your body can become dependent on this medicine. Ask your doctor or health child care specialist if you still need to take it. You may get drowsy or dizzy. Do not drive, use machinery, or do anything that needs mental alertness until you know how this medicine affects you. To reduce the risk of dizzy and fainting spells, do not stand or sit up quickly, especially if you are an older patient. Alcohol may increase dizziness and drowsiness. Avoid alcoholic drinks. Do not treat yourself for coughs, colds or allergies without asking your doctor or health child care specialist for advice. Some ingredients can increase possible side effects. You have been given the following additional information: Alcohol Withdrawal Chlordiazepoxide Hydrochloride Oral capsule (Electronically signed by Bert Roy Dr. 02/11/2017 3:48)
--- NOTE | 2017-02-11 04:21 | ED MAR SUMMARY ---
..... Medication Administration Record [facility] [address] [place] [address] Patient: ROSALVA BROOKS Visit ID: [id number] 51y, F Weight: 63.5 kg Height/Length: 67 in BMI: 21.9 ALLERGIES: No Known Drug Allergy Given 03:47 02/11/2017 [place] Medication Administered: DIAZEPAM [PO] (DIAZEPAM), Dose: 5 mg PO. Medication Ordered: Diazepam PO 5 mg (HIGH ALERT MEDICATION, NOW).
--- NOTE | 2017-02-11 04:21 | ED MED RECONCILIATION SUMMARY ---
Patient: ROSALVA BROOKS Medication Reconciliation Report [facility] VisitID: [id number] [address] [place] [address] 51y, F Registration Date/Time: 02/10/2017 Weight: 63.5 kg Height/Length: 67 in. BMI: 21.9 ALLERGIES: No Known Drug Allergy The patient's Home Medications are listed below: STOP TAKING THE FOLLOWING MEDICATIONS: ClonazePAM Oral CONTINUE TAKING THE FOLLOWING MEDICATIONS: Citalopram Hydrobromide Oral (20 mg) 1 tablet, daily The source(s) of the original Home Medication information: Not obtained. The following Medications were given to the patient in the Emergency Department: Diazepam [PO] PO 5 mg, administered: 02/11/2017 3:47:00 AM The following Medications were prescribed to the patient: Antabuse 250 mg: take 1 tablet orally every day. Dispense fifteen (15). No refill. Substitution is permissible. -- Bert Roy Dr. Chlordiazepoxide 25 mg: take 1 orally every 6 hours. Dispense twenty (20). No refill. -- Bert Roy Dr.
== END 2017-02-11 04:08 | disposition home or self-care (01) ==
LOC: ED SRH 22:10
DX: F10.129 Alcohol abuse with intoxication, unspecified (principal); F19.14 Other psychoactive substance abuse with psychoactive substance-induced mood disorder
CPT/HCPCS: 90004; 90074; 90100; 92010; 92760; 92761; 92762; 92763; 92764; 92765; 92766; 92767; 93070; 95059

== ENCOUNTER 2017-03-04 20:12 | Emergency (ER) | payer OTHER ==
--- NOTE | 2017-03-05 13:31 | ED NURSING NOTES ---
Clinical Report - Nurses [facility]ly [facility] [address] [place] [address] 03/04/2017 20:13 Patient: ROSALVA BROOKS TRIAGE 20:03/04/17. BP: 107/55 (regular adult cuff) taken on the left arm, while lying. HR: 107. RR: 16. O2 saturation: 95% on room air. Temp: 98.5 F (oral). Pain level now: 0/10. --20:27 Gila Nickerson R.N. late entry - 20:21 03/04/17. --20:43 Gila Nickerson R.N. Triage time 20:15 Mar 04 2017. Acuity: LEVEL 3. Chief Complaint: ALTERED MENTAL STATUS. 20:27 03/04/17. SEPSIS SCREEN: Sepsis Screen. Negative (no infection suspected/documented). BRUCE COMA SCORE: Bruce Coma Scale: 13- eyes open to voice (3); best verbal response- disoriented (4); best motor response- obeys commands (6). --20:27 Gila Nickerson R.N. Weight: 63.5 kg stated. Height/Length: 66 inches Per Patient. BMI: 22.6. --20:23 Gila Nickerson R.N. Medications Citalopram Hydrobromide Oral (Tablet 20 mg) 1 tablet, daily. --20:22 Gila Nickerson R.N. TraZODone HCl Oral (Tablet 50 mg). --20:22 Gila Nickerson R.N. Allergies No Known Drug Allergy. --20:22 Gila Nickerson R.N. History Arrived by EMS. Historian: EMS and patient. Accompanied by police (ems). This started just prior to arrival. ( Took trazodone and citalopram two beers). PAST MEDICAL HX: Last normal menstrual period was 1 week ago- years ago. SELF HARM ASSESSMENT: A self harm assessment was performed. The patient reports their behavior. --20:27 Gila Nickerson R.N. SOCIAL HX: Never smoker. Alcohol use; consumes two beers a day. Last drink was just prior to arrival. No drug use. No infectious disease exposure. ABUSE ASSESSMENT: No report of abuse. SELF HARM ASSESSMENT: A self harm assessment was performed. The patient answered "no" to the question "Do you have thoughts of harming or killing yourself?", "Have you recently had thoughts about harming or killing others?" and "Do you have any dangerous items in your possession?". --20:31 Gila Nickerson R.N. Treatment TUBE STATION ATTENDANT: EMS treatment TUBE STATION ATTENDANT verbally communicated. Finger stick glucose performed (120). BP: 112 / 62. HR: 98. RR: 16. ( EMS reported that they were called by leadership program intern department due to decrease LOC and patient possibly ingesting her medication and alcohol, aftershave or listerine. Patient has denied all except for ingesting one Trazodone, one Citalopram and two beers, she denies wanting to hurt herself or others.). --20:43 Gila Nickerson R.N. PROBLEMS: Substance Abuse. Lifestyle / Substance Problems. Mental Illness. Suicidal Ideation. Alcohol Withdrawal. Hypertension. Contusion. Hypernatremia. Alcohol Intoxication. Alcoholism. Depression. Anxiety Reaction. --20:22 Gila Nickerson R.N. ADDITIONAL SURGERIES: no known surgeries. Interventions ID band on patient. To treatment room. --20:27 Gila Nickerson R.N. PHYSICAL ASSESSMENT 20:29 03/04/17. To room via stretcher. Patient gowned. GENERAL / NEURO / PSYCH: The patient is disoriented to time. Patient's speech is slurred. Patient appears unkempt. Poor hygiene. Clothes are dirty. Hair is uncombed. Pupillary exam: Right pupil round and dilated. Left pupil: round and dilated. RESPIRATORY: Respirations not labored. Breath sounds within normal limits. CVS: Normal sinus rhythm noted. Capillary refill less than 2 seconds. GI / : Abdomen soft and nontender. Bowel sounds within normal limits. SKIN: Skin is warm. Normal skin turgor. --20:29 Gila Nickerson R.N. NURSING PROGRESS NOTES 20:26 03/04/2017 Site #1 started via IV in the left forearm with an 20g angiocath; one attempt. Blood drawn: rainbow set. Labeled in the presence of the patient and sent to the lab. Saline lock flushed with 10 mL saline. --20:31 Gila Nickerson R.N. 20:29 03/04/17. The plan of care for this patient has been created. Monitoring of patient in place. Patient gowned. Head of bed elevated. Reassurance given. Two patient identifiers checked. Call light placed in reach. Side rails up x 2. Bed placed in lowest position. Brakes of bed on. Patient ready for evaluation- chart flagged and MEDICAL SCHEDULER notified. --20:29 Gila Nickerson R.N. 8 fr in/out catheterization. Reason for indwelling catheter: patient's decreased level of consciousness. During procedure hand hygiene observed and sterile equipment and aseptic technique used. Return of 75 mL yellow-colored francisco-colored clear urine; odor is normal. She tolerated procedure well (IN and out by Karyol and bladder drained, sample sent). --20:33 Gila Nickerson R.N. 20:34 03/04/17. ( Patient placed in yellow gown, in room 13, in sight of nurses station). --20:34 Gila Ncikerson R.N. 20:40 03/04/17. ( 300mL urine drained from bladder). --20:40 Gila Nickerson R.N. ( Patients clothing put in bag, labeled with name and her two medications placed in bio bag with her name labeled on it. This is all at nurses station). --20:45 Gila Nickerson R.N. 20:49 03/04/17. The patient is calm, resting quietly and sleeping. --20:49 Gila Nickerson R.N. 21:08 03/04/17. BP: 110/63 (regular adult cuff) taken on the left arm. HR: 103. RR: 16. O2 saturation: 95% on room air. Pain level now: 0/10. --21:09 Gila Nickerson R.N. 21:09 03/04/17. ( Patient requesting something for sleep, informed her we would not be able to do that right now but possible for later depending on MEDICAL SCHEDULER. She states her understanding to this. Patient continues to be cooperative). --21:09 Gila Nickerson R.N. 21:15 03/04/17. ( Patient picking at Dante, I instructed the patient to leave this alone and do not mess with her IV, she understands this. She is also messing with her BP cuff and removed this, I asked her to leave this on so she can be continuously monitored.). --21:15 Gila Nickerson R.N. 21:21 03/04/17. ( Patient given phone to call her mother). --21:21 Gila Nickerson R.N. 21:42 03/04/2017 Started bag #1 1000 mL IV Fluids IV NS (Saline); bolus of 1000 mL wide open then at 1000 mL/hr over 1 hour(s) via site #1 via IV pump. Allergies verified and confirmed 5 rights. IV patency established. IV site checked: no pain, redness, or swelling. IV flushed thoroughly pre- and post-medication administration. --21:42 Gila Nickerson R.N. 21:46 03/04/17. ( Patients called, patient now talking to him). --21:46 Gila Nickerson R.N. 21:52 03/04/17. BP: 105/63 (regular adult cuff) taken on the left arm, while sitting. HR: 110. RR: 18 (regular). O2 saturation: 96% on room air. Pain level now: 0/10. --21:53 Gila Nickerson R.N. 21:53 03/04/17. ( Patient still talking on the phone with ). --21:53 Gila Nickerson R.N. ( Patient off the phone now and resting well). --22:08 Gila Nickerson R.N. 22:18 03/04/17. The patient is resting quietly. --22:18 Gila Nickerson R.N. 22:16 03/04/17. BP: 116/78 (regular adult cuff) taken on the left arm. HR: 97. RR: 16. O2 saturation: 100% on room air. Pain level now: 0/10. --22:18 Gila Nickerson R.N. 22:42 03/04/2017 Started bag #1 1000 mL IV Fluids IV NS (Saline); bolus of 1000 mL over 1 hour(s) then at 1000 mL/hr over 1 hour(s) via site #1 via IV pump. Allergies verified and confirmed 5 rights. IV patency established. IV site checked: no pain, redness, or swelling. IV flushed thoroughly pre- and post-medication administration. --22:47 Gila Nickerson R.N. 22:42 03/04/2017 IV Fluids IV NS Discontinued: bag #1 completed. Total amount infused: 1000 mL. IV patency established. IV site checked: no pain, redness, or swelling. IV flushed thoroughly. --22:47 Gila Nickerson R.N. 23:03 03/04/17. ( Patient would like me to call daughter back and let her know she does not want daughter Aleyda to come by [facility], she requested she come by tomorrow. I called Aleyda and notified her of this, she states her understanding and will come and see her tomorrow if she is still here. No other information given to daughter per patients request.). --23:03 Gila Nickerson R.N. 23:15 03/04/17. ( Patient on the phone again with ). --23:15 Gila Nickerson R.N. 00:00 03/05/17. ( Patient trying to get a hold of her son at this time). --00:00 Gila Nickerson R.N. 00:07 03/05/17. ( Patient offered sandwich and fluids, she accepted, ordered sandwich and gave patient ice water, crackers and cheese). --00:07 Gila Nickerson R.N. 00:09 03/05/17. BP: 134/80 (regular adult cuff) taken on the left arm, while sitting. HR: 92. RR: 16. O2 saturation: 96% on room air. Pain level now: 0/10. --00:14 Gila Nickerson R.N. ( Patient given half a sandwich). --00:14 Gila Nickerson R.N. 00:16 03/05/17. ( Patient on phone with daughter). --00:16 Gila Nickerson R.NAvery 00:44 03/05/17. ( Patients lights dimmed further, she requested curtain closed, this was was done but only half shut). --00:44 Gila Nickerson R.NAvery 01:09 03/05/17. The patient is resting quietly and sleeping. --01:09 Gila Nickerson R.NAvery 01:24 03/05/17. ( Patient taken off monitor so she can sleep). --01:24 Gila Nickerson R.NAvery 04:03 03/05/17. ( Patient resting quietly, easily aroused). --04:03 Gila Nickerson R.N. 04:58 03/05/17. The patient is sleeping. --04:58 Gila Nickerson R.NAvery 06:26 03/05/17. ( Patient still resting quietly, breakfast tray has arrived. Will let patient sleep a little longer then will give her her tray). --06:26 Gila Nickerson R.NAvery 06:32 03/05/17. ( Patient sleeping, aroused easily, given breakfast tray, offered another warm blanket, she declined blanket. Patient fell back asleep). --06:32 Gila Nickerson R.N. 07:04 03/05/17. Care transferred and report given (Dima Keys RN). --07:04 Gila Nickerson R.N. 07:50. ( Pt requested to be breathalyzed. Breathalyzer showed 0.085.). --08:00 Lj Jacob, ER Tech1 08:20 03/05/17. BP: 139/89 (regular adult cuff) taken on the left arm, while lying. HR: 89. RR: 16. O2 saturation: 95% on room air. Temp: 98.5 F (oral). Pain level now: 0/10. --08:44 Dima Hernández R.N. Head of bed elevated. Reassurance given. Call light placed in reach. Bed placed in lowest position. Brakes of bed on. ( Pt finished breakfast, no c/o, resting quietly, wants to go home, visitors just arrived.). --08:44 Dima Hernández R.N. 10:01 03/05/2017 Thiamine (Vitamin B-1) IVP 100 mg given over 5 minute(s) via site #1. Allergies verified and confirmed 5 rights. IV patency established. IV site checked: no pain, redness, or swelling. IV flushed thoroughly pre- and post-medication administration. IVP given by RN. --10:01 Dima Hernández R.N. ( pt. request and is given more blankets.). --11:55 Patience Khanna, STEFAN Tech1 Head of bed elevated. Reassurance given. Call light placed in reach. Bed placed in lowest position. Brakes of bed on. ( Lunch was provided, pt resting quietly.). --11:56 Dima Hernández R.N. DISPOSITION / DISCHARGE 14:08 03/05/2017 Site #1 removed upon discharge. Bandage applied. --14:15 Dima Hernández R.N. 23:45 03/05/2017 IV Fluids IV NS via IV site #1 Rate Changed: bag #2 decreased to 21 mL/hr via IV pump. IV patency established. IV site checked: no pain, redness, or swelling. IV flushed thoroughly. Confirmed 5 Rights (By ELMA Hernandez). --01:18 Gila Nickerson R.N. Departure time: 1410. Condition at departure: improved and stable. No learning barriers present. Discharge instructions provided and reviewed with the patient. Reviewed medication(s). Treatments reviewed. Patient verbalized understanding. Written instructions provided in Ukrainian. The patient was discharged by the physician. She was discharged home and accompanied by family. She left the Emergency Department ambulatory and via private vehicle. Family member driving. --14:16 Dima Hernández R.N. 14:05 03/05/17. BP: 154/90. HR: 90. RR: 20. O2 saturation: 97% on room air. Temp: 98.5 F (oral). Pain level now: 0/10. --14:16 Dima Hernández R.N. Locked/Released at 03/05/2017 15:05 by Dima Hernández R.N.
--- NOTE | 2017-03-05 13:31 | ED ORDER SUMMARY ---
..... Patient: ROSALVA BROOKS OrderSheet [facility] VisitID: [id number] [address] [place] [address] 51y, F Registration Date/Time: 03/04/2017 ORDER SHEET Weight: 63.5 kg (stated) Allergies: No Known Drug Allergy GENERAL ORDERS: CBC w Diff Urgent (20:32 03/04/2017 HBivens A.R.N.P.) (20:33 JSanders R.N.) CMP Urgent (20:32 03/04/2017 HBivens A.R.N.P.) (20:33 JSanders R.N.) UA-Culture if indicated Urgent (20:32 03/04/2017 HBivens A.R.N.P.) (20:33 JSanders R.N.) Urine Drug Screen Urgent (20:32 03/04/2017 HBivens A.R.N.P.) (20:33 JSanders R.N.) Ethyl Alcohol Urgent (20:32 03/04/2017 HBivens A.R.N.P.) (20:33 JSanders R.N.) Salicylate Level Urgent (20:32 03/04/2017 HBivens A.R.N.P.) (20:33 JSanders R.N.) Acetaminophen Level Urgent (20:32 03/04/2017 HBivens A.R.N.P.) (20:33 JSanders R.N.) Serum Qualitative Urgent (20:03/04/2017 HBivens A.R.N.P.) (20:33 JSanders R.N.) Breathalyzer (08:13 03/05/2017 Mj CARTER) (8:14 JSimbeck R.N.) MEDICATION ORDERS: IV FLUIDS: IV Saline Lock (20:32 03/04/2017 HBivens A.R.N.P.) (20:33 JSanders R.N.) IV NS : initial bolus 1000 mL (1000 mL/hr), then none - for X2 (NOW) (21:35 03/04/2017 HBivens A.R.N.P.) (Ack 21:35 JSanders R.N.) (21:42 Leticia Olivia) Thiamine IV 100 mg (NOW) (08:43 03/05/2017 Mj CARTER) (10:01 Rizwana Olivia) ORDER SHEET NOTES: [Electronically signed by Dima Hernández R.N. (15:05 03/05/2017)] [Electronically signed by Lj Wood DO (10:51 03/06/2017)] [Electronically locked/signed by Dima Hernández R.N. (15:05 03/05/2017)]
--- NOTE | 2017-03-05 13:31 | ED ORDER SUMMARY ---
..... Patient: ROSALVA BROOKS OrderSheet [facility] VisitID: [id number] [address] [place] [address] 51y, F Registration Date/Time: 03/04/2017 ORDER SHEET Weight: 63.5 kg (stated) Allergies: No Known Drug Allergy GENERAL ORDERS: CBC w Diff Urgent (20:32 03/04/2017 HBivens A.R.N.P.) (20:33 JSanders R.N.) CMP Urgent (20:32 03/04/2017 HBivens A.R.N.P.) (20:33 JSanders R.N.) UA-Culture if indicated Urgent (20:32 03/04/2017 HBivens A.R.N.P.) (20:33 JSanders R.N.) Urine Drug Screen Urgent (20:32 03/04/2017 HBivens A.R.N.P.) (20:33 JSanders R.N.) Ethyl Alcohol Urgent (20:32 03/04/2017 HBivens A.R.N.P.) (20:33 JSanders R.N.) Salicylate Level Urgent (20:32 03/04/2017 HBivens A.R.N.P.) (20:33 JSanders R.N.) Acetaminophen Level Urgent (20:32 03/04/2017 HBivens A.R.N.P.) (20:33 JSanders R.N.) Serum Qualitative Urgent (20:03/04/2017 HBivens A.R.N.P.) (20:33 JSanders R.N.) Breathalyzer (08:13 03/05/2017 Mj CARTER) (8:14 JSimbeck R.N.) MEDICATION ORDERS: IV FLUIDS: IV Saline Lock (20:32 03/04/2017 HBivens A.R.N.P.) (20:33 JSanders R.N.) IV NS : initial bolus 1000 mL (1000 mL/hr), then none - for X2 (NOW) (21:35 03/04/2017 HBivens A.R.N.P.) (Ack 21:35 JSanders R.N.) (21:42 Leticia Olivia) Thiamine IV 100 mg (NOW) (08:43 03/05/2017 Mj CARTER) (10:01 Rizwana Olivia) ORDER SHEET NOTES: [Electronically signed by Dima Hernández R.N. (15:05 03/05/2017)] [Electronically signed by Lj Wood DO (10:51 03/06/2017)] [Electronically locked/signed by Dima Hernández R.N. (15:05 03/05/2017)]
--- NOTE | 2017-03-05 13:31 | ED NURSING NOTES ---
Clinical Report - Nurses [facility] [address] [place] [address] 03/04/2017 20:13 Patient: ROSALVA BROOKS TRIAGE 20:03/04/17. BP: 107/55 (regular adult cuff) taken on the left arm, while lying. HR: 107. RR: 16. O2 saturation: 95% on room air. Temp: 98.5 F (oral). Pain level now: 0/10. --20:27 Gila Nickerson R.N. late entry - 20:21 03/04/17. --20:43 Gila Nickerson R.N. Triage time 20:15 Mar 04 2017. Acuity: LEVEL 3. Chief Complaint: ALTERED MENTAL STATUS. 20:27 03/04/17. SEPSIS SCREEN: Sepsis Screen. Negative (no infection suspected/documented). BRUCE COMA SCORE: Bruce Coma Scale: 13- eyes open to voice (3); best verbal response- disoriented (4); best motor response- obeys commands (6). --20:27 Gila Nickerson R.N. Weight: 63.5 kg stated. Height/Length: 66 inches Per Patient. BMI: 22.6. --20:23 Gila Nickerson R.N. Medications Citalopram Hydrobromide Oral (Tablet 20 mg) 1 tablet, daily. --20:22 Gila Nickerson R.N. TraZODone HCl Oral (Tablet 50 mg). --20:22 Gila Nickerson R.N. Allergies No Known Drug Allergy. --20:22 Gila Nickerson R.N. History Arrived by EMS. Historian: EMS and patient. Accompanied by police (ems). This started just prior to arrival. ( Took trazodone and citalopram two beers). PAST MEDICAL HX: Last normal menstrual period was 1 week ago- years ago. SELF HARM ASSESSMENT: A self harm assessment was performed. The patient reports their behavior. --20:27 Gila Nickerson R.N. SOCIAL HX: Never smoker. Alcohol use; consumes two beers a day. Last drink was just prior to arrival. No drug use. No infectious disease exposure. ABUSE ASSESSMENT: No report of abuse. SELF HARM ASSESSMENT: A self harm assessment was performed. The patient answered "no" to the question "Do you have thoughts of harming or killing yourself?", "Have you recently had thoughts about harming or killing others?" and "Do you have any dangerous items in your possession?". --20:31 Gila Nickerson R.N. Treatment MENTAL HEALTH SOCIAL WORKER: EMS treatment MENTAL HEALTH SOCIAL WORKER verbally communicated. Finger stick glucose performed (120). BP: 112 / 62. HR: 98. RR: 16. ( EMS reported that they were called by slasher operator department due to decrease LOC and patient possibly ingesting her medication and alcohol, aftershave or listerine. Patient has denied all except for ingesting one Trazodone, one Citalopram and two beers, she denies wanting to hurt herself or others.). --20:43 Gila Nickerson R.N. PROBLEMS: Substance Abuse. Lifestyle / Substance Problems. Mental Illness. Suicidal Ideation. Alcohol Withdrawal. Hypertension. Contusion. Hypernatremia. Alcohol Intoxication. Alcoholism. Depression. Anxiety Reaction. --20:22 Gila Nickerson R.N. ADDITIONAL SURGERIES: no known surgeries. Interventions ID band on patient. To treatment room. --20:27 Gila Nickerson R.N. PHYSICAL ASSESSMENT 20:29 03/04/17. To room via stretcher. Patient gowned. GENERAL / NEURO / PSYCH: The patient is disoriented to time. Patient's speech is slurred. Patient appears unkempt. Poor hygiene. Clothes are dirty. Hair is uncombed. Pupillary exam: Right pupil round and dilated. Left pupil: round and dilated. RESPIRATORY: Respirations not labored. Breath sounds within normal limits. CVS: Normal sinus rhythm noted. Capillary refill less than 2 seconds. GI / : Abdomen soft and nontender. Bowel sounds within normal limits. SKIN: Skin is warm. Normal skin turgor. --20:29 Gila Nickerson R.N. NURSING PROGRESS NOTES 20:26 03/04/2017 Site #1 started via IV in the left forearm with an 20g angiocath; one attempt. Blood drawn: rainbow set. Labeled in the presence of the patient and sent to the lab. Saline lock flushed with 10 mL saline. --20:31 Gila Nickerson R.N. 20:29 03/04/17. The plan of care for this patient has been created. Monitoring of patient in place. Patient gowned. Head of bed elevated. Reassurance given. Two patient identifiers checked. Call light placed in reach. Side rails up x 2. Bed placed in lowest position. Brakes of bed on. Patient ready for evaluation- chart flagged and EMBEDDED NURSE notified. --20:29 Gila Nickerson R.N. 8 fr in/out catheterization. Reason for indwelling catheter: patient's decreased level of consciousness. During procedure hand hygiene observed and sterile equipment and aseptic technique used. Return of 75 mL yellow-colored francisco-colored clear urine; odor is normal. She tolerated procedure well (IN and out by Karyol and bladder drained, sample sent). --20:33 Gila Nickerson R.N. 20:34 03/04/17. ( Patient placed in yellow gown, in room 13, in sight of nurses station). --20:34 Gila Nickerson R.N. 20:40 03/04/17. ( 300mL urine drained from bladder). --20:40 Gila Nickerson R.N. ( Patients clothing put in bag, labeled with name and her two medications placed in bio bag with her name labeled on it. This is all at nurses station). --20:45 Gila Nickerson R.N. 20:49 03/04/17. The patient is calm, resting quietly and sleeping. --20:49 Gila Nickerson R.N. 21:08 03/04/17. BP: 110/63 (regular adult cuff) taken on the left arm. HR: 103. RR: 16. O2 saturation: 95% on room air. Pain level now: 0/10. --21:09 Gila Nickerson R.N. 21:09 03/04/17. ( Patient requesting something for sleep, informed her we would not be able to do that right now but possible for later depending on EMBEDDED NURSE. She states her understanding to this. Patient continues to be cooperative). --21:09 Gila Nickerson R.N. 21:15 03/04/17. ( Patient picking at Dante, I instructed the patient to leave this alone and do not mess with her IV, she understands this. She is also messing with her BP cuff and removed this, I asked her to leave this on so she can be continuously monitored.). --21:15 Gila Nickerson R.N. 21:21 03/04/17. ( Patient given phone to call her mother). --21:21 Gila Nickerson R.N. 21:42 03/04/2017 Started bag #1 1000 mL IV Fluids IV NS (Saline); bolus of 1000 mL wide open then at 1000 mL/hr over 1 hour(s) via site #1 via IV pump. Allergies verified and confirmed 5 rights. IV patency established. IV site checked: no pain, redness, or swelling. IV flushed thoroughly pre- and post-medication administration. --21:42 Gila Nickerson R.N. 21:46 03/04/17. ( Patients called, patient now talking to him). --21:46 Gila Nickerson R.N. 21:52 03/04/17. BP: 105/63 (regular adult cuff) taken on the left arm, while sitting. HR: 110. RR: 18 (regular). O2 saturation: 96% on room air. Pain level now: 0/10. --21:53 Gila Nickerson R.N. 21:53 03/04/17. ( Patient still talking on the phone with ). --21:53 Gila Nickerson R.N. ( Patient off the phone now and resting well). --22:08 Gila Nickerson R.N. 22:18 03/04/17. The patient is resting quietly. --22:18 Gila Nickerson R.N. 22:16 03/04/17. BP: 116/78 (regular adult cuff) taken on the left arm. HR: 97. RR: 16. O2 saturation: 100% on room air. Pain level now: 0/10. --22:18 Gila Nickerson R.N. 22:42 03/04/2017 Started bag #1 1000 mL IV Fluids IV NS (Saline); bolus of 1000 mL over 1 hour(s) then at 1000 mL/hr over 1 hour(s) via site #1 via IV pump. Allergies verified and confirmed 5 rights. IV patency established. IV site checked: no pain, redness, or swelling. IV flushed thoroughly pre- and post-medication administration. --22:47 Gila Nickerson R.N. 22:42 03/04/2017 IV Fluids IV NS Discontinued: bag #1 completed. Total amount infused: 1000 mL. IV patency established. IV site checked: no pain, redness, or swelling. IV flushed thoroughly. --22:47 Gila Nickerson R.N. 23:03 03/04/17. ( Patient would like me to call daughter back and let her know she does not want daughter Aleyda to come by [facility], she requested she come by tomorrow. I called Aleyda and notified her of this, she states her understanding and will come and see her tomorrow if she is still here. No other information given to daughter per patients request.). --23:03 Gila Nickerson R.N. 23:15 03/04/17. ( Patient on the phone again with ). --23:15 Gila Nickerson R.N. 00:00 03/05/17. ( Patient trying to get a hold of her son at this time). --00:00 Gila Nickerson R.N. 00:07 03/05/17. ( Patient offered sandwich and fluids, she accepted, ordered sandwich and gave patient ice water, crackers and cheese). --00:07 Gila Nickerson R.N. 00:09 03/05/17. BP: 134/80 (regular adult cuff) taken on the left arm, while sitting. HR: 92. RR: 16. O2 saturation: 96% on room air. Pain level now: 0/10. --00:14 Gila Nickerson R.N. ( Patient given half a sandwich). --00:14 Gila Nickerson R.N. 00:16 03/05/17. ( Patient on phone with daughter). --00:16 Gila Nickerson R.NAvery 00:44 03/05/17. ( Patients lights dimmed further, she requested curtain closed, this was was done but only half shut). --00:44 Gila Nickerson R.NAvery 01:09 03/05/17. The patient is resting quietly and sleeping. --01:09 Gila Nickerson R.NAvery 01:24 03/05/17. ( Patient taken off monitor so she can sleep). --01:24 Gila Nickerson R.NAvery 04:03 03/05/17. ( Patient resting quietly, easily aroused). --04:03 Gila Nickerson R.N. 04:58 03/05/17. The patient is sleeping. --04:58 Gila Nickerson R.NAvery 06:26 03/05/17. ( Patient still resting quietly, breakfast tray has arrived. Will let patient sleep a little longer then will give her her tray). --06:26 iGla Nickerson R.NAvery 06:32 03/05/17. ( Patient sleeping, aroused easily, given breakfast tray, offered another warm blanket, she declined blanket. Patient fell back asleep). --06:32 Gila Nickerson R.N. 07:04 03/05/17. Care transferred and report given (Dima Keys RN). --07:04 Gila Nickerson R.N. 07:50. ( Pt requested to be breathalyzed. Breathalyzer showed 0.085.). --08:00 Lj Jacob, ER Tech1 08:20 03/05/17. BP: 139/89 (regular adult cuff) taken on the left arm, while lying. HR: 89. RR: 16. O2 saturation: 95% on room air. Temp: 98.5 F (oral). Pain level now: 0/10. --08:44 Dima Hernández R.N. Head of bed elevated. Reassurance given. Call light placed in reach. Bed placed in lowest position. Brakes of bed on. ( Pt finished breakfast, no c/o, resting quietly, wants to go home, visitors just arrived.). --08:44 Dima Hernández R.N. 10:01 03/05/2017 Thiamine (Vitamin B-1) IVP 100 mg given over 5 minute(s) via site #1. Allergies verified and confirmed 5 rights. IV patency established. IV site checked: no pain, redness, or swelling. IV flushed thoroughly pre- and post-medication administration. IVP given by RN. --10:01 Dima Hernández R.N. ( pt. request and is given more blankets.). --11:55 Patience Khanna, STEFAN Tech1 Head of bed elevated. Reassurance given. Call light placed in reach. Bed placed in lowest position. Brakes of bed on. ( Lunch was provided, pt resting quietly.). --11:56 Dima Hernández R.N. DISPOSITION / DISCHARGE 14:08 03/05/2017 Site #1 removed upon discharge. Bandage applied. --14:15 Dima Hernández R.N. 23:45 03/05/2017 IV Fluids IV NS via IV site #1 Rate Changed: bag #2 decreased to 21 mL/hr via IV pump. IV patency established. IV site checked: no pain, redness, or swelling. IV flushed thoroughly. Confirmed 5 Rights (By ELMA Hernandez). --01:18 Gila Nickerson R.N. Departure time: 1410. Condition at departure: improved and stable. No learning barriers present. Discharge instructions provided and reviewed with the patient. Reviewed medication(s). Treatments reviewed. Patient verbalized understanding. Written instructions provided in Maltese. The patient was discharged by the physician. She was discharged home and accompanied by family. She left the Emergency Department ambulatory and via private vehicle. Family member driving. --14:16 Dima Hernández R.N. 14:05 03/05/17. BP: 154/90. HR: 90. RR: 20. O2 saturation: 97% on room air. Temp: 98.5 F (oral). Pain level now: 0/10. --14:16 Dima Hernández R.N. Locked/Released at 03/05/2017 15:05 by Dima Hernández R.N.
--- NOTE | 2017-03-05 13:31 | ED CLINICAL REPORT ---
Clinical Report - Physicians/Mid Levels [facility] [address], [place] [address] 03/04/2017 20:13 Patient: ROSALVA BROOKS Time Seen: 2019; initial patient contact, initial documentation, patient care assumed. Arrived- Police present. Historian- patient and police. History limited by intoxication. HISTORY OF PRESENT ILLNESS Chief Complaint: BIZARRE BEHAVIOR. Referred for medical clearance. Does not want detox. Symptoms started today. Substances abused: Alcohol. Last drink just prior to arrival. She is under influence in ED. police were called to home because mother was reporting pt was making statements about killing herself, drank bottle of listerine yesterday, and today drank aftershave today. No fever, vomiting, diarrhea, abdominal pain or suicidal thoughts. Has not been depressed. pt denies any suicidal thoughts when asked. The symptoms are described as moderate. No injuries noted. Similar symptoms previously: Chronically, as bad. Recent medical care: Not recently seen/assessed. REVIEW OF SYSTEMS No sweats, headache, chest pain, palpitations or black stools. No bloody stools, cough, difficulty breathing, difficulty with urination or skin abscess. She has had a sore throat. She has had difficulty walking. All systems otherwise negative, except as recorded above. PAST HISTORY See nurses notes. PROBLEMS: Substance Abuse. Lifestyle / Substance Problems. Mental Illness. Suicidal Ideation. Alcohol Withdrawal. Hypertension. Contusion. Hypernatremia. Alcohol Intoxication. Alcoholism. Depression. Anxiety Reaction. SURGERIES: no known surgeries. Additional Surgeries: no known surgeries. Medications: TraZODone HCl Oral (Tablet 50 mg). Citalopram Hydrobromide Oral (Tablet 20 mg) 1 tablet, daily. Allergies: No Known Drug Allergy. SOCIAL HISTORY Never smoker. Heavy alcohol use. Patient is a longstanding alcoholic. Under the influence in E.D. No drug use. Has social support. Has place to stay. FAMILY HISTORY History of psychiatric problems. ADDITIONAL NOTES The nursing notes have been reviewed with agreement regarding the chief complaint, HPI, ROS, PMH and patient medications and allergies. PHYSICAL EXAM Vital Signs: 03/04/2017 20:21 BP: 107/55. HR: 107. RR: 16. O2 saturation: 95%. Temp: 98.5 F. Pain level now: 0/10. Have been reviewed as abnormal and appear to be correct. Blood pressure normal. Tachycardic. Respiratory rate normal. Temperature normal. Oxygen saturation normal. Appearance: Oriented X3. No acute distress. The patient's speech is slurred and odor of alcohol is present. Head: Head atraumatic. Eyes: Pupils equal, round and reactive to light. ENT: Normal ENT inspection. Airway intact. Moist mucous membranes. Pharynx normal. Neck: Normal inspection. Neck supple. CVS: Normal heart rate and rhythm. Heart sounds normal. Pulses normal. Respiratory: No respiratory distress. Breath sounds normal. Abdomen: Soft and nontender. No organomegaly. Skin: Skin warm and dry. Normal skin color. No rash. Normal skin turgor. Extremities: Extremities exhibit normal ROM. No lower extremity edema. Neuro: Oriented X 3. Altered mental status. Patient slow to respond. Eyes open spontaneously. Best verbal response: oriented X 3. Best motor response: obeys commands. Not disoriented to anything. Not disoriented. Alertness is decreased(intoxicated). Verbal response is not abnormal. Response to pain is not abnormal. No aphasia. Abnormal mood/affect or speech. No dysphasia or dysarthria. Cranial nerves normal (as tested). No cerebellar findings. No motor deficit. No sensory deficit. LABS, X-RAYS, AND EKG Laboratory Tests: UA-Culture if indicated: (NARCISA: 03/04/2017 20:30) ( MsgRcvd 03/04/2017 21:19) Final results Test Result Flag Units (Reference) URINE COLOR STRAW URINE APPEARANCE CLEAR URINE GLUCOSE NEGATIVE (NEGATIVE) URINE BILIRUBIN NEGATIVE (NEGATIVE) URINE KETONE NEGATIVE (NEGATIVE) URINE SPECIFIC GRAVITY <= 1.005 L (1.010-1.030) URINE PH 6.0 (5.0-8.0) URINE PROTEIN NEGATIVE (NEGATIVE) URINE UROBILINOGEN 0.2 EU/dL (0.2-1.0) URINE NITRITE NEGATIVE (NEGATIVE) URINE BLOOD NEGATIVE (NEGATIVE) URINE LEUK ESTERASE NEGATIVE (NEGATIVE) URINE RBC NONE SEEN rbc/hpf (0-1) URINE WBC RARE wbc/hpf (0-1) URINE EPITHELIAL CELLS 1-3 EPI/hpf (0-5) URINE BACTERIA TRACE (<1+) (NONE SEEN) URINE COMMENT CULT NOT INDICATED URINE CULTURES ARE SET-UP BASED ON THE FOLLOWING CRITERIA:POSITIVE NITRITEPOSITIVE LEUKOCYTE ESTERASEGREATER THAN 10 WHITE BLOOD CELLSMODERATE (2+) OR GREATER BACTERIA Serum Qualitative: (NARCISA: 03/04/2017 20:30) ( [facility] 03/04/2017 20:57) Final results Test Result Flag Units (Reference) , SERUM NEGATIVE CBC w Diff: (NARCISA: 03/04/2017 20:30) ( [facility] 03/04/2017 20:59) Final results Test Result Flag Units (Reference) WHITE BLOOD COUNT 6.1 K/uL (4.5-11.5) RED BLOOD COUNT 3.56 L M/uL (4.00-5.20) HEMOGLOBIN 11.4 L gm/dL (12.0-16.0) HEMATOCRIT 34.2 L % (36.0-46.0) MEAN CELL VOLUME 96 fL (80-100) MEAN CORPUSCULAR HGB 32 pg (26-34) MEAN CORPUSCULAR HGB CONC 34 g/dL (31-37) RED CELL DISTRIBUTION WIDTH 14.5 % (11.6-14.8) PLATELET COUNT 227 K/uL (150-400) NEUTROPHIL % 68.0 % (50-75) LYMPH % 25.7 % (25-40) MONO % 4.2 % (3-14) EOSINOPHIL % 1.5 % (0-4) BASOPHIL % 0.6 % (0-2) Urine Drug Screen: (NARCISA: 03/04/2017 20:30) ( [facility] 03/04/2017 21:10) Final results Test Result Flag Units (Reference) AMPHETAMINE/METHAMPHETAMINE NEGATIVE (NEGATIVE) BARBITURATE NEGATIVE (NEGATIVE) BENZODIAZEPINE POSITIVE H (NEGATIVE) CANNABINOID NEGATIVE (NEGATIVE) COCAINE NEGATIVE (NEGATIVE) ECSTASY NEGATIVE (NEGATIVE) METHADONE NEGATIVE (NEGATIVE) OPIATE NEGATIVE (NEGATIVE) The urine drug screen is a qualitative screening test fordrug overdose and abuse. All screen results should beconsidered as presumptive.Drugs screened for are as follows:BenzodiazepinesCocaineAmphetamines/MetamphetaminesTHC (Tetrahydrocannabinol)OpiatesBarbituratesEcstasyMethadonePositive results are unconfirmed. For confirmation, notifythe lab for the specimen to be sent to the reference lab.All confirmations must be performed by a differentmethodology.The ingestion of natural herbal and plant productscontaining Ephedra/Ephedra metabolites can produce in urineone or more substances capable of cross reacting withamphetamine/methamphetamine immunoassays. These testsprovide a preliminary result only. A more specificalternative chemical method must be used to obtain aconfirmed analytical result. Salicylate Level: (NARCISA: 03/04/2017 20:30) ( MsgRcvd 03/04/2017 21:12) Final results Test Result Flag Units (Reference) SALICYLATE <2.8 L mg/dL (2.8-20) CMP: (ANRCISA: 03/04/2017 20:30) ( MsgRcvd 03/04/2017 21:11) Final results Test Result Flag Units (Reference) GLUCOSE 118 H mg/dL (70-110) BUN 6 L mg/dL (7-18) CREATININE 0.6 mg/dL (0.6-1.3) Estimated GFR >60 mL/min Estimated GFR- >60 mL/min Note: Persistent reduction over 3 months in eGFR<60 mL/min/1.73 m2 defines CKD. Patients with eGFR values>=60 mL/min/1.73 m2 may also have CKD if evidence ofpersistent proteinuria. Additional information may be foundat www.kidney.org. SODIUM 148 H mmol/L (136-145) POTASSIUM 4.4 mmol/L (3.5-5.1) CHLORIDE 110 H mmol/L (98-107) CARBON DIOXIDE 29 mmol/L (21-32) CALCIUM 8.2 L mg/dL (8.5-10.1) TOTAL PROTEIN 6.8 g/dL (6.4-8.2) ALBUMIN 3.4 g/dL (3.3-5.0) BILIRUBIN, TOTAL 0.4 mg/dL (0.0-1.0) ALKALINE PHOSPHATASE 56 U/L (46-116) AST (SGOT) 49 H U/L (15-37) ALT (SGPT) 34 U/L (12-78) ACETAMINOPHEN < 2.0 L ug/mL (10-30) ETHYL ALCOHOL 327 H mg/dL (3-10) . Bedside Tests: Glucose normal - 120 (performed by EMS). Pulse Oximetry: 03/04/2017 22:16 O2 saturation: 100%. (FIO2 - room air). Interpretation: normal. PROGRESS AND PROCEDURES Course of Care: 20:37 03/04/17. chief strategy officer gave me his report for involuntary commitment for psych issues, officer aware that I would not be able to clear her til she khai up, psych team will not come evaluate if pt is intoxicated pt has hill for #7 er visits all related to alcohol issues, see report for full details 22:40 03/04/17. reported off to Dr Sheldon 09:00. Care transferred from Dr Sheldon secondary to shift change 13:31 03/05/17. Pt is now sober and denies any SI or HI. She has good social support with her [facility] and will monitor her medications. Pt requests antabuse - RX provided. 03/04/2017 22:16 BP: 116/78. HR: 97. RR: 16. O2 saturation: 100%. Pain level now: 0/10. Patient/family counseled. Differential Diagnosis: Other possible considerations: si, etoh abuse/intoxication, depression, substance abuse, bipolar. Above considerations are based on history, physical exam, reassessment and laboratory data. Differential diagnosis was discussed with patient. Disposition: Discharged. Condition: stable and improved. CLINICAL IMPRESSION Uncomplicated alcohol intoxication with alcohol dependence. No alcohol intoxication with delirium. 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 No suicidal attempt. Possible hypertension. INSTRUCTIONS Stay with responsible adult family member (or other responsible adult) until better. Drink plenty of fluids. No alcohol. (Go to [place] tomorrow. Please stay with your mother. Please take the antabuse as prescribed. BY SIGNING THIS, YOU AGREE TO FOLLOW THE INSTRUCTIONS ABOVE AND AGREE TO NOT HARM YOURSELF OR OTHERS - WITH ANY THOUGHTS OF HARMING YOURSELF, YOU WILL CALL OR RETURN TO THE EMERGENCY DEPARTMENT OR REPORT TO YOUR DOCTOR OR RAILROAD PASSENGER AGENT). Warnings: Further evaluation is necessary. GENERAL WARNINGS: Return or contact your physician immediately if your condition worsens or changes unexpectedly, if not improving as expected, or if other problems arise. Prescription Medications: Antabuse 250mg: take 1 tablet orally every day. Dispense ten (10). No refills. Substitution is permissible. Follow-up: Follow up with your doctor tomorrow. Screening today revealed the patient's blood pressure to be in the hypertensive range. The patient should follow up with a primary care provider for blood pressure management. (Electronically signed by Lj Wood DO 03/06/2017 10:51)
--- NOTE | 2017-03-06 10:52 | ED MAR SUMMARY ---
..... Medication Administration Record [facility] [address] [place] [address] Patient: ROSALVA BROOKS Visit ID: [id number] 51y, F Weight: 63.5 kg Height/Length: 66 in BMI: 22.6 ALLERGIES: No Known Drug Allergy Start 21:42 03/04/2017 Gila Nickerson R.N., Stop 22:42 03/04/2017 Gila Nickerson R.N. Medication Administered: IV NS (SALINE), Dose: IV Fluids over 1 hour(s), Rate: 1000 mL/hr, Bolus: 1000 mL wide open, Dispensed: 1000 mL bag, Site: #1 left forearm. Medication Ordered: IV NS : initial bolus 1000 mL (1000 mL/hr), then none - for X2 (NOW). Start 22:42 03/04/2017 Gila Nickerson R.N. Medication Administered: IV NS (SALINE), Dose: IV Fluids over 1 hour(s), Rate: 1000 mL/hr, Bolus: 1000 mL over 1 hour(s), Dispensed: 1000 mL bag, Site: #1 left forearm. Medication Ordered: IV NS : initial bolus 1000 mL (1000 mL/hr), then none - for X2 (NOW). Given 10:01 03/05/2017 Dima Hernández R.N. Medication Administered: THIAMINE [IVP] (VITAMIN B-1), Dose: 100 mg IVP over 5 minute(s), Site: #1 left forearm. Medication Ordered: Thiamine IV 100 mg (NOW).
--- NOTE | 2017-03-06 10:52 | ED DISCHARGE INSTRUCTIONS ---
Patient: ROSALVA BROOKS General Instructions [facility] VisitID: [id number] [address] [place] [address] 51y, F Registration Date/Time: 03/04/2017 Uncomplicated alcohol intoxication with alcohol dependence. No alcohol intoxication with delirium. 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 No suicidal attempt. INSTRUCTIONS Stay with responsible adult family member (or other responsible adult) until better. Drink plenty of fluids. No alcohol. (Go to [facility] tomorrow. Please stay with your mother. Please take the antabuse as prescribed. BY SIGNING THIS, YOU AGREE TO FOLLOW THE INSTRUCTIONS ABOVE AND AGREE TO NOT HARM YOURSELF OR OTHERS - WITH ANY THOUGHTS OF HARMING YOURSELF, YOU WILL CALL OR RETURN TO THE EMERGENCY DEPARTMENT OR REPORT TO YOUR DOCTOR OR AUTO SERVICE DISPATCHER). Warnings: Further evaluation is necessary. GENERAL WARNINGS: Return or contact your physician immediately if your condition worsens or changes unexpectedly, if not improving as expected, or if other problems arise. Prescription Medications: Antabuse 250mg: take 1 tablet orally every day. Dispense ten (10). No refills. Substitution is permissible. Follow-up: Follow up with your doctor tomorrow. Screening today revealed the patient's blood pressure to be in the hypertensive range. The patient should follow up with a primary care provider for blood pressure management. ADDITIONAL INFORMATION Alcohol Intoxication Alcohol intoxication occurs when you drink alcohol faster than your liver can remove it from your system. Alcohol intoxication affects your judgment and coordination. Very high blood alcohol levels can cause coma, very slow breathing and even . If you drink alcohol every day, this may gradually cause permanent damage to your liver, brain, heart, pancreas and other organs. Alcohol use during may cause permanent damage to the growing baby. Home Care: Do not drink any more alcohol. DO NOT DRIVE until all effects of the alcohol have worn off. Get lots of rest over the next few days. Drink plenty of water and other non-alcoholic liquids. Try to eat regular meals. If you have been drinking heavily on a daily basis, you may go through alcohol withdrawl. This is also called the shakes or DTs. The usual symptoms last 3 to 4 days and may include nervousness, shakiness, nausea, sweating or sleeplessness. During this time, it is best that you stay with family or friends who can help and support you. You can also admit yourself to a residential detox program. If your symptoms are severe, contact your doctor for medicines to help. Follow Up: If alcohol is causing a problem in your life, these and other organizations can help you: Alcoholics Anonymous offers support through a self-help fellowship. There are no dues or fees. See the Yellow Pages and call for time and place of meetings. www.aa.org [employer] offers support to families of alcohol users. 240.463.4524 www.al-anon.org National [place] On Alcoholism And Drug Dependence 905-201-0844 www.ncadd.org There are also inpatient or residential alcohol detox programs. Check the Internet or phonebook Yellow Pages under Drug Abuse & Treatment Centers. Get Prompt Medical Attention if any of the following occur: there) Depression Depression is one of the most common mental health problems today. It is not just a state of unhappiness or sadness. It is a true disease. The cause seems to be related to a decrease in chemicals that transmit signals in the brain. Having a family history of depression, alcoholism or suicide increases the risk. Chronic illness, chronic pain, migraine headaches and high emotional stress also increase the risk. Depression can cause many different symptoms, such as: -- Loss of appetite -- Over-eating -- Not being able to sleep -- Sleeping too much -- Tiredness not related to physical exertion -- Restlessness or irritability -- Slowness of movement or speech -- Feeling depressed or withdrawn -- Loss of interest in things you once enjoyed -- Difficulty in concentrating, poor memory, have trouble making decisions -- Thoughts of harming or killing oneself, or thoughts that life is not worth living -- Low self-esteem The best treatment for depression is a combination of medicine and psychotherapy. Antidepressant medicines can reduce suffering and can improve the ability to function during the depressed period. Therapy can offer emotional support and help you understand emotional factors that may be causing the depression. Home Care: 1) Be kind to yourself. Make it a point to do things that you enjoy (gardening, walking in nature, going to a movie, etc.). Reward yourself for small successes. 2) Take care of your physical body. Eat a balanced diet (low in saturated fat and high in fruits and vegetables). Establish an exercise plan at least 3 times a week for 30 minutes. Even mild-moderate exercise (like brisk walking) can make you feel better. 3) Avoid alcohol, which can make depression worse. Follow-Up with your doctor as advised. It is important to keep in contact with a health care provider until your symptoms begin to improve. Get Prompt Medical Attention if any of the following occur: -- Feeling extreme depression, fear, anxiety, or anger toward yourself or others -- Feeling out of control -- Feeling that you may try to harm yourself or another -- Hearing voices that others do not hear -- Seeing things that others do not see -- Cant sleep or eat for 3 days in a row You have been given the following additional information: Alcohol Intoxication Depression Stay with responsible adult family member (or other responsible adult) until better. (Electronically signed by Lj Wood DO 03/06/2017 10:51)
--- NOTE | 2017-03-06 10:52 | ED MED RECONCILIATION SUMMARY ---
Patient: ROSALVA BROOKS Medication Reconciliation Report [facility] VisitID: [id number] [address] [place] [address] 51y, F Registration Date/Time: 03/04/2017 Weight: 63.5 kg Height/Length: 66 in. BMI: 22.6 ALLERGIES: No Known Drug Allergy The patient's Home Medications are listed below: THE FOLLOWING MEDICATIONS NEED TO BE RECONCILED: Citalopram Hydrobromide Oral (20 mg) 1 tablet, daily TraZODone HCl Oral (50 mg) The source(s) of the original Home Medication information: Not obtained. The following Medications were given to the patient in the Emergency Department: IV NS IV Fluids bolus 1000 mL wide open, then 1000 mL/hr, administered: 03/04/2017 9:42:00 PM IV NS IV Fluids bolus 1000 mL over 1 hour(s), then 1000 mL/hr, administered: 03/04/2017 10:42:00 PM Thiamine [IVP] IVP 100 mg, administered: 03/05/2017 10:01:00 AM The following Medications were prescribed to the patient: Antabuse 250mg: take 1 tablet orally every day. Dispense ten (10). No refills. Substitution is permissible. -- jL Wood DO
--- NOTE | 2017-03-06 10:52 | ED MED RECONCILIATION SUMMARY ---
Patient: ROSALVA BROOKS Medication Reconciliation Report [facility] VisitID: [id number] [address] [place] [address] 51y, F Registration Date/Time: 03/04/2017 Weight: 63.5 kg Height/Length: 66 in. BMI: 22.6 ALLERGIES: No Known Drug Allergy The patient's Home Medications are listed below: THE FOLLOWING MEDICATIONS NEED TO BE RECONCILED: Citalopram Hydrobromide Oral (20 mg) 1 tablet, daily TraZODone HCl Oral (50 mg) The source(s) of the original Home Medication information: Not obtained. The following Medications were given to the patient in the Emergency Department: IV NS IV Fluids bolus 1000 mL wide open, then 1000 mL/hr, administered: 03/04/2017 9:42:00 PM IV NS IV Fluids bolus 1000 mL over 1 hour(s), then 1000 mL/hr, administered: 03/04/2017 10:42:00 PM Thiamine [IVP] IVP 100 mg, administered: 03/05/2017 10:01:00 AM The following Medications were prescribed to the patient: Antabuse 250mg: take 1 tablet orally every day. Dispense ten (10). No refills. Substitution is permissible. -- Lj Wood DO
--- NOTE | 2017-03-06 10:52 | ED MAR SUMMARY ---
..... Medication Administration Record [facility] [address] [place] [address] Patient: ROSALVA BROOKS Visit ID: [id number] 51y, F Weight: 63.5 kg Height/Length: 66 in BMI: 22.6 ALLERGIES: No Known Drug Allergy Start 21:42 03/04/2017 Gila Nickerson R.N., Stop 22:42 03/04/2017 Gila Nickerson R.N. Medication Administered: IV NS (SALINE), Dose: IV Fluids over 1 hour(s), Rate: 1000 mL/hr, Bolus: 1000 mL wide open, Dispensed: 1000 mL bag, Site: #1 left forearm. Medication Ordered: IV NS : initial bolus 1000 mL (1000 mL/hr), then none - for X2 (NOW). Start 22:42 03/04/2017 Gila Nickerson R.N. Medication Administered: IV NS (SALINE), Dose: IV Fluids over 1 hour(s), Rate: 1000 mL/hr, Bolus: 1000 mL over 1 hour(s), Dispensed: 1000 mL bag, Site: #1 left forearm. Medication Ordered: IV NS : initial bolus 1000 mL (1000 mL/hr), then none - for X2 (NOW). Given 10:01 03/05/2017 Dima Hernández R.N. Medication Administered: THIAMINE [IVP] (VITAMIN B-1), Dose: 100 mg IVP over 5 minute(s), Site: #1 left forearm. Medication Ordered: Thiamine IV 100 mg (NOW).
--- NOTE | 2017-03-06 10:52 | ED DISCHARGE INSTRUCTIONS ---
Patient: ROSALVA BROOKS General Instructions [facility] VisitID: [id number] [address] [place] [address] 51y, F Registration Date/Time: 03/04/2017 Uncomplicated alcohol intoxication with alcohol dependence. No alcohol intoxication with delirium. 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 No suicidal attempt. INSTRUCTIONS Stay with responsible adult family member (or other responsible adult) until better. Drink plenty of fluids. No alcohol. (Go to [facility] tomorrow. Please stay with your mother. Please take the antabuse as prescribed. BY SIGNING THIS, YOU AGREE TO FOLLOW THE INSTRUCTIONS ABOVE AND AGREE TO NOT HARM YOURSELF OR OTHERS - WITH ANY THOUGHTS OF HARMING YOURSELF, YOU WILL CALL OR RETURN TO THE EMERGENCY DEPARTMENT OR REPORT TO YOUR DOCTOR OR TIRE MAINTENANCE TECHNICIAN). Warnings: Further evaluation is necessary. GENERAL WARNINGS: Return or contact your physician immediately if your condition worsens or changes unexpectedly, if not improving as expected, or if other problems arise. Prescription Medications: Antabuse 250mg: take 1 tablet orally every day. Dispense ten (10). No refills. Substitution is permissible. Follow-up: Follow up with your doctor tomorrow. Screening today revealed the patient's blood pressure to be in the hypertensive range. The patient should follow up with a primary care provider for blood pressure management. ADDITIONAL INFORMATION Alcohol Intoxication Alcohol intoxication occurs when you drink alcohol faster than your liver can remove it from your system. Alcohol intoxication affects your judgment and coordination. Very high blood alcohol levels can cause coma, very slow breathing and even . If you drink alcohol every day, this may gradually cause permanent damage to your liver, brain, heart, pancreas and other organs. Alcohol use during may cause permanent damage to the growing baby. Home Care: Do not drink any more alcohol. DO NOT DRIVE until all effects of the alcohol have worn off. Get lots of rest over the next few days. Drink plenty of water and other non-alcoholic liquids. Try to eat regular meals. If you have been drinking heavily on a daily basis, you may go through alcohol withdrawl. This is also called the shakes or DTs. The usual symptoms last 3 to 4 days and may include nervousness, shakiness, nausea, sweating or sleeplessness. During this time, it is best that you stay with family or friends who can help and support you. You can also admit yourself to a residential detox program. If your symptoms are severe, contact your doctor for medicines to help. Follow Up: If alcohol is causing a problem in your life, these and other organizations can help you: Alcoholics Anonymous offers support through a self-help fellowship. There are no dues or fees. See the Yellow Pages and call for time and place of meetings. www.aa.org [employer] offers support to families of alcohol users. 190.306.9703 www.al-anon.org National [place] On Alcoholism And Drug Dependence 408-203-6297 www.ncadd.org There are also inpatient or residential alcohol detox programs. Check the Internet or phonebook Yellow Pages under Drug Abuse & Treatment Centers. Get Prompt Medical Attention if any of the following occur: there) Depression Depression is one of the most common mental health problems today. It is not just a state of unhappiness or sadness. It is a true disease. The cause seems to be related to a decrease in chemicals that transmit signals in the brain. Having a family history of depression, alcoholism or suicide increases the risk. Chronic illness, chronic pain, migraine headaches and high emotional stress also increase the risk. Depression can cause many different symptoms, such as: -- Loss of appetite -- Over-eating -- Not being able to sleep -- Sleeping too much -- Tiredness not related to physical exertion -- Restlessness or irritability -- Slowness of movement or speech -- Feeling depressed or withdrawn -- Loss of interest in things you once enjoyed -- Difficulty in concentrating, poor memory, have trouble making decisions -- Thoughts of harming or killing oneself, or thoughts that life is not worth living -- Low self-esteem The best treatment for depression is a combination of medicine and psychotherapy. Antidepressant medicines can reduce suffering and can improve the ability to function during the depressed period. Therapy can offer emotional support and help you understand emotional factors that may be causing the depression. Home Care: 1) Be kind to yourself. Make it a point to do things that you enjoy (gardening, walking in nature, going to a movie, etc.). Reward yourself for small successes. 2) Take care of your physical body. Eat a balanced diet (low in saturated fat and high in fruits and vegetables). Establish an exercise plan at least 3 times a week for 30 minutes. Even mild-moderate exercise (like brisk walking) can make you feel better. 3) Avoid alcohol, which can make depression worse. Follow-Up with your doctor as advised. It is important to keep in contact with a health care provider until your symptoms begin to improve. Get Prompt Medical Attention if any of the following occur: -- Feeling extreme depression, fear, anxiety, or anger toward yourself or others -- Feeling out of control -- Feeling that you may try to harm yourself or another -- Hearing voices that others do not hear -- Seeing things that others do not see -- Cant sleep or eat for 3 days in a row You have been given the following additional information: Alcohol Intoxication Depression Stay with responsible adult family member (or other responsible adult) until better. (Electronically signed by Lj Wood DO 03/06/2017 10:51)
== END 2017-03-05 14:10 | disposition home or self-care (01) ==
LOC: ED SRH 20:12
DX: F10.220 Alcohol dependence with intoxication, uncomplicated (principal); F32.1 Major depressive disorder, single episode, moderate; I10 Essential (primary) hypertension; Z79.899 Other long term (current) drug therapy
CPT/HCPCS: 81460; 90004; 90100; 92010; 92760; 92761; 92762; 92763; 92764; 92765; 92766; 92767; 92780; 95059; 97000; 98428